=== PATIENT | male | born 1945 | race Caucasian/White ===

== ENCOUNTER 2018-10-20 15:16 | Inpatient (IN) | payer OTHER, MEDICARE ==
[2018-10-20] MEDS ORDERED: DEXAMETHASONE 10 MG/ML VIAL ONE (15:43)
[2018-10-20] MEDS ORDERED: LEVALBUTEROL 1.25 MG/3 ML NEB ONE (15:43)
[2018-10-20 16:25] LABS: Blood Gas Oxyhemoglobin 87.1 % (94-97); Blood O2 Saturation 87.7 % (92-98.5)
[2018-10-20 16:34] LABS: Urine Blood 1+ (NEG); Urine Glucose NEGATIVE (NEG); Urine Protein 2+ (NEG); Urine Specific Gravity 1.015 (1.005-1.030); Urine pH 8.5 (5.0-7.0)
--- NOTE | 2018-10-20 17:25 | RAD REPORT ---
EXAM DESCRIPTION: RAD - Chest Single View - 10/20/2018 5:02 pm CLINICAL HISTORY: COPD, shortness of breath COMPARISON: September 2015 TECHNIQUE: AP portable chest image was obtained 1636 hours . FINDINGS: Lung gonzalez are severely fibrotic. Diaphragm is flattened. Focally more prominent opacific ation is present in the right infrahilar region. Trachea is midline. Heart and vasculature are normal . No pneumothorax. Costophrenic angle blunting present. No acute bony abnormality seen. No acute aort ic findings suspected. IMPRESSION: Severe COPD changes are present. Lung markings are substantially more pronounced. This could be progressive fibrosis, superimposed inf iltrates/edema or a combination. Focally more prominent parenchymal density right infrahilar region. This could be small mass or focal pneumonia.
[2018-10-20 19:03] LABS: Absolute Lymphocytes (CBC) 4.1 K/uL (0.7-4.9); Absolute Monocytes 0.8 K/uL (0.1-1.3); Absolute Neutrophil 20.2 K/uL (1.8-8.0); Basophils % 0.1 % (0-1.3); Hematocrit 38.3 % (39.6-49.0); Lymphocytes % 16.4 % (15.3-44.8); MCH 31.4 pg (27.0-35.0); MPV 8.5 fL (7.6-11.3); Monocytes % 3.2 % (3.3-12.3); RBC Red Blood Cell Count 4.21 M/uL (4.33-5.43)
[2018-10-20 19:04] LABS: Protime INR 1.43
[2018-10-20] MEDS ORDERED: GABAPENTIN 300 MG CAP ONE (19:12)
[2018-10-20] MEDS ORDERED: HYDROCODONE/APAP 5/325 MG TAB ONE (19:12)
[2018-10-20 19:26] LABS: ALT/SGPT 62 U/L (12-78); AST/SGOT 67 U/L (15-37); Albumin 2.2 g/dL (3.4-5.0); Alkaline Phosphatase 166 U/L (45-117); BUN Blood Urea Nitrogen 33 mg/dL (7-18); Bicarbonate 32 mmol/L (21-32); Bilirubin Direct 0.3 mg/dL (0-0.2); Bilirubin Total 0.7 mg/dL (0.2-1.0); Glucose Level 122 mg/dL (74-106); Magnesium 2.2 mg/dL (1.8-2.4); NT PRO-BNP 959 pg/mL (<125); Potassium 3.8 mmol/L (3.5-5.1); Protein, Total 7.1 g/dL (6.4-8.2); Sodium Level 132 mmol/L (136-145); Troponin (Emerg Dept Use Only) < 0.02 ng/mL (0.0-0.045)
--- NOTE | 2018-10-20 19:39 | ER ---
Nurse's Notes [facility] Name: Jason Anand Sr Age: 72 yrs Sex: Male : 1945 Arrival Date: 10/20/2018 Time: 15:20 Bed 14 Private MD: Diagnosis: Chronic obstructive pulmonary disease with (acute) exacerbation;Pneumonia, unspecified organism Presentation: 10/20 15:30 Presenting complaint: EMS states: He was 54% on room air, gave and A\T\A treatment and it jl7 increased to 94%. Pt refuses IV at this time. Transition of care: patient was not received from another setting of care. Onset of symptoms was October 20, 2018. Risk Assessment: Do you want to hurt yourself or someone else? Patient reports no desire to harm self or others. Initial Sepsis Screen: Does the patient meet any 2 criteria? No. Patient's initial sepsis screen is negative. Does the patient have a suspected source of infection? No. Patient's initial sepsis screen is negative. Care prior to arrival: Medication(s) given: Albuterol Neb x 2, Atrovent Neb x 1. 15:30 Method Of Arrival: EMS: [facility] jl7 15:30 Acuity: CARLOS 3 jl7 Triage Assessment: 15:47 General: Appears uncomfortable, ill, cachectic, Behavior is cooperative. Pain: Denies jl7 pain. Neuro: Level of Consciousness is awake, alert, obeys commands. Cardiovascular: Heart tones present. Respiratory: Reports shortness of breath at rest Airway is patent Respiratory effort is even, labored, Respiratory pattern is symmetrical, tachypnea Breath sounds are diminished bilaterally. Onset: The symptoms/episode began/occurred this morning, the patient has moderate shortness of breath. Derm: Skin is dry, Skin is pale, Skin temperature is warm. Historical: - Allergies: 15:33 PENICILLINS; jl7 - PMHx: 15:33 COPD; jl7 - Immunization history:: Adult Immunizations unknown. - Ebola Screening: : No symptoms or risks identified at this time. - Social history:: Smoking status: Patient uses tobacco products, less than 1/2 PPD. Screenin:30 Abuse screen: Denies threats or abuse. Denies injuries from another. Nutritional jl7 screening: No deficits noted. Tuberculosis screening: No symptoms or risk factors identified. 19:15 Fall Risk Ambulatory Aid- Crutches/Cane/Walker (15 pts). Gait- Weak (10 pts.). Mental cc3 Status- Oriented to own ability (0 pts). Assessment: 15:30 General: Pt and family refuse IV, x-ray, any shots. Only agree to PO meds at this time, jl7 provider notified. 15:30 Cardiovascular: Rhythm is irregular. jl7 16:00 Reassessment:. Respiratory: Airway is patent Respiratory effort is labored, with jl7 retractions, Respiratory pattern is symmetrical, tachypnea ERP notified of decline in respiratory status, ERP at bedside. 18:53 Reassessment: catechist reports the initial blood specimen was not received and they jl7 located it on second floor. Specimen redrawn and sent to lab, assistant laboratory director confirmed receiving the specimen at this time. 19:15 Reassessment: Patient appears in no apparent distress at this time. Patient and/or cc3 family updated on plan of care and expected duration. Pain level reassessed. Patient is alert, oriented x 3, equal unlabored respirations, skin warm/dry/pink. Received this male patient from morning shift JEREMY Anaya as a case of shortness of breath. With IV cannula gauge 22 at the right forearm saline locked. 20:15 Reassessment: Patient appears in no apparent distress at this time. Patient and/or cc3 family updated on plan of care and expected duration. Pain level reassessed. Patient is alert, oriented x 3, equal unlabored respirations, skin warm/dry/pink. 21:01 Reassessment: Patient appears in no apparent distress at this time. Patient and/or cc3 family updated on plan of care and expected duration. Pain level reassessed. Patient is alert, oriented x 3, equal unlabored respirations, skin warm/dry/pink. Dr. Ceballos at bedside assessing the patient, awaiting admission orders. 22:20 Reassessment: Patient appears in no apparent distress at this time. Patient and/or cc3 family updated on plan of care and expected duration. Pain level reassessed. Patient is alert, oriented x 3, equal unlabored respirations, skin warm/dry/pink. Room available in 423, called for report but was told that the nurse who will receive will just call me back. 22:30 Reassessment: Patient appears in no apparent distress at this time. Report handed over cc3 to JEREMY Blount for continuity of care. 23:00 Reassessment: Patient appears in no apparent distress at this time. Patient and/or cc3 family updated on plan of care and expected duration. Pain level reassessed. Patient is alert, oriented x 3, equal unlabored respirations, skin warm/dry/pink. Patient left ER for admission vitally stable by stretcher on oxygen therapy escorted by accounting technician David and the patient's daughter. Vital Signs: 15:33 BP 138 / 69; Pulse 107; Resp 22 S; Temp 98.9(O); Pulse Ox 88% on R/A; Pain 0/10; jl7 16:00 BP 140 / 100; Pulse 135; Resp 32 S; Pulse Ox 83% on 2 lpm NC; jl7 16:30 BP 146 / 80; Pulse 91; Resp 16 S; Pulse Ox 96% on 2 lpm NC; jl7 17:00 BP 129 / 84; Pulse 96; Resp 16 S; Pulse Ox 98% on 2 lpm NC; jl7 18:00 BP 112 / 63; Pulse 91; Resp 16 S; Pulse Ox 100% on 2 lpm NC; jl7 18:54 BP 117 / 74; Pulse 94; Resp 16 S; Pulse Ox 100% on 2 lpm NC; jl7 19:30 BP 118 / 71; Pulse 91; Resp 20 S; Temp 97.9(O); Pulse Ox 100% on 2 lpm NC; cc3 20:18 BP 121 / 63; Pulse 85; Resp 20 S; Pulse Ox 99% on 1 lpm NC; cc3 21:30 BP 112 / 67; Pulse 84; Resp 19 S; Pulse Ox 100% on 1 lpm NC; cc3 22:36 BP 124 / 71; Pulse 81; Resp 19 S; Pulse Ox 100% on 1 lpm NC; cc3 ED Course: 15:20 Patient arrived in ED. jl7 15:27 Delta Cabrera NP is PHCP. pm1 15:[address] MD is Attending Physician. pm1 15:28 EKG done, by manufacturing tech. reviewed by Delta Cabrera NP. at1 15:30 Jaclyn Tafoya RN is Primary Nurse. jl7 15:30 Patient has correct armband on for positive identification. Placed in gown. Bed in low jl7 position. Call light in reach. Side rails up X2. gum sprayer on. Pulse ox on. NIBP on. 15:32 Triage completed. jl7 15:33 Arm band placed on right wrist. jl7 16:15 Initial lab(s) drawn, by me, sent to lab. Inserted saline lock: 22 gauge in right jl7 forearm, using aseptic technique. Blood collected. 16:20 First set of blood cultures drawn via 22-gauge IV in Right wrist. jp3 16:40 Second set of blood cultures drawn via 21-gauge butterfly needle in Left Forearm. jp3 17:03 XRAY Chest (1 view) In Process Unspecified. EDMS 17:30 Urine collected: clean catch specimen, clear, dora colored. jp3 18:11 Awaiting lab results. jl7 19:38 Kacy Loaiza MD is Hospitalizing Provider. pm1 22:30 No provider procedures requiring assistance completed. Patient admitted, IV remains in cc3 place. 23:00 Blood Culture Adult (2) Sent. jp3 Administered Medications: 15:45 Drug: Xopenex (3) 1.25 mg Route: Inhalation; jl7 16:37 Follow up: Response: No adverse reaction jl7 15:45 Drug: Decadron - Dexamethasone 10 mg Route: IVP; Site: Other; jl7 16:38 Follow up: Response: No adverse reaction jl7 18:08 CANCELLED (Duplicate Order): LevaQUIN 750 mg PO once pm1 19:13 Drug: [place] 5 mg-325 mg 1 tabs Route: PO; jl7 20:00 Follow up: Response: No adverse reaction; Pain is decreased cc3 19:13 Drug: Gabapentin 300 mg Route: PO; jl7 19:30 Follow up: Response: No adverse reaction cc3 19:40 Drug: LevaQUIN 750 mg Volume: 150 ml; Route: IVPB; Infused Over: 90 mins; Site: right cc3 forearm; 21:30 Follow up: Response: No adverse reaction; IV Status: Completed infusion; IV Intake: cc3 150ml 19:46 Drug: NS 0.9% 500 ml Volume: 500 ml; Route: IV; Rate: 1 bolus; Site: right forearm; cc3 20:30 Follow up: Response: No adverse reaction; IV Status: Completed infusion; IV Intake: cc3 500ml Intake: 20:30 IV: 500ml; Total: 500ml. cc3 21:30 IV: 150ml; Total: 650ml. cc3 Outcome: 19:38 Decision to Hospitalize by Provider. pm1 22:30 Admitted to Tele accompanied by tech, family with patient, via stretcher, room 423, cc3 with oxygen, with chart, Report called to JEREMY Blount 22:30 Condition: stable 22:30 Instructed on the need for admit, Demonstrated understanding of instructions. 23:12 Patient left the ED. cc3 Signatures: Dispatcher [employer] EDMS Marii Harry, senior design engineering specialist EKG Tat1 Delta Cabrera, DEBI DIRECTOR E LEARNING pm1 Jaclyn Tafoya RN RN jl7 Bora Glover jp3 Jessica Cruz cc3
--- NOTE | 2018-10-20 19:40 | EDPHYS ---
Physician Documentation [facility] Name: Jason Anand Sr Age: 72 yrs Sex: Male : 1945 Arrival Date: 10/20/2018 Time: 15:20 Bed 14 Private MD: ED Physician Lee Lane HPI: 10/20 16:30 This 72 yrs old Male presents to ER via EMS with complaints of Shortness Of pm1 Breath. 16:30 The patient has shortness of breath at rest. Onset: The symptoms/episode began/occurred pm1 today. Duration: The symptoms are chronic. The patient's shortness of breath has no apparent modifying factors. Associated signs and symptoms: Pertinent positives: non-productive cough, Pertinent negatives: chest pain, fever, nausea, vomiting. Severity of symptoms: in the emergency department the symptoms are worse Pain is currently a 0 / 10. The patient has experienced similar episodes in the past, chronically. The patient has not recently seen a physician, the patient's primary care provider is Dr. Franklin, a fuse cutter. 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 Patient reports shortness of breath since the beginning of the year but worse today. On EMS arrival had they report O2 saturation level in th 50s, gave patient breathing treatment and his saturations increased to low 90s. Patient reports improvement but still feels short of breath. Historical: - Allergies: 15:33 PENICILLINS; jl7 - PMHx: 15:33 COPD; jl7 - Immunization history:: Adult Immunizations unknown. - Ebola Screening: : No symptoms or risks identified at this time. - Social history:: Smoking status: Patient uses tobacco products, less than 1/2 PPD. ROS: 16:30 Constitutional: Negative for fever, chills, and weight loss, Eyes: Negative for injury, pm1 pain, redness, and discharge, ENT: Negative for injury, pain, and discharge, Neck: Negative for injury, pain, and swelling, Cardiovascular: Negative for chest pain, palpitations, and edema. 16:30 Abdomen/GI: Negative for abdominal pain, nausea, vomiting, diarrhea, and constipation, Back: Negative for injury and pain, : Negative for injury, bleeding, discharge, and swelling, MS/Extremity: Negative for injury and deformity, Skin: Negative for injury, rash, and discoloration, Neuro: Negative for headache, weakness, numbness, tingling, and seizure. 16:30 Respiratory: Positive for shortness of breath, Negative for sputum production, wheezing. Exam: 16:30 Head/Face: Normocephalic, atraumatic. Eyes: Pupils equal round and reactive to light, pm1 extra-ocular motions intact. Lids and lashes normal. Conjunctiva and sclera are non-icteric and not injected. Cornea within normal limits. Periorbital areas with no swelling, redness, or edema. ENT: Nares patent. No nasal discharge, no septal abnormalities noted. Tympanic membranes are normal and external auditory canals are clear. Oropharynx with no redness, swelling, or masses, exudates, or evidence of obstruction, uvula midline. Mucous membranes moist. Neck: Trachea midline, no thyromegaly or masses palpated, and no cervical lymphadenopathy. Supple, full range of motion without nuchal rigidity, or vertebral point tenderness. No Meningismus. Chest/axilla: Normal chest wall appearance and motion. Nontender with no deformity. No lesions are appreciated. Cardiovascular: Regular rate and rhythm with a normal S1 and S2. No gallops, murmurs, or rubs. Normal PMI, no JVD. No pulse deficits. 16:30 Abdomen/GI: Soft, non-tender, with normal bowel sounds. No distension or tympany. No guarding or rebound. No evidence of tenderness throughout. Back: No spinal tenderness. No costovertebral tenderness. Full range of motion. Skin: Warm, dry with normal turgor. Normal color with no rashes, no lesions, and no evidence of cellulitis. MS/ Extremity: Pulses equal, no cyanosis. Neurovascular intact. Full, normal range of motion. 16:30 Constitutional: The patient appears alert, awake, non-toxic, well groomed, emaciated, in obvious distress, mildly distressed. 16:30 Constitutional: The patient appears in obvious distress, moderately distressed. 16:30 Respiratory: moderate respiratory distress is noted, Respirations: labored breathing, that is moderate, Breath sounds: decreased breath sounds, are scattered. 16:30 Neuro: Orientation: is normal, Motor: is normal, moves all fours. Vital Signs: 15:33 BP 138 / 69; Pulse 107; Resp 22 S; Temp 98.9(O); Pulse Ox 88% on R/A; Pain 0/10; jl7 16:00 BP 140 / 100; Pulse 135; Resp 32 S; Pulse Ox 83% on 2 lpm NC; jl7 16:30 BP 146 / 80; Pulse 91; Resp 16 S; Pulse Ox 96% on 2 lpm NC; jl7 17:00 BP 129 / 84; Pulse 96; Resp 16 S; Pulse Ox 98% on 2 lpm NC; jl7 18:00 BP 112 / 63; Pulse 91; Resp 16 S; Pulse Ox 100% on 2 lpm NC; jl7 18:54 BP 117 / 74; Pulse 94; Resp 16 S; Pulse Ox 100% on 2 lpm NC; jl7 19:30 BP 118 / 71; Pulse 91; Resp 20 S; Temp 97.9(O); Pulse Ox 100% on 2 lpm NC; cc3 20:18 BP 121 / 63; Pulse 85; Resp 20 S; Pulse Ox 99% on 1 lpm NC; cc3 21:30 BP 112 / 67; Pulse 84; Resp 19 S; Pulse Ox 100% on 1 lpm NC; cc3 22:36 BP 124 / 71; Pulse 81; Resp 19 S; Pulse Ox 100% on 1 lpm NC; cc3 MDM: 15:27 Patient medically screened. pm1 15:34 Refusal of service: The patient/guardian displays adequate decision making capability pm1 and despite a detailed discussion of alternatives, benefits, risks, and consequences refuses: all lab tests, all X-rays, He just wants a breathing treatment and to go home. His niece is at the bedside and she is his patient care coordinator and she is in agreement with his decisions. Therefore I will give him Xopenex, he received Albuterol and Atrovent in route by EMS, and steroid PO. 18:45 ED course: Lab redraw required by laboratory. pm1 19:35 Data reviewed: vital signs. pm1 19:37 Counseling: I had a detailed discussion with the patient and/or guardian regarding: the pm1 historical points, exam findings, and any diagnostic results supporting the discharge/admit diagnosis, lab results, radiology results, the need for further work-up and treatment in the hospital. 20:10 Physician consultation: Kacy Loaiza MD was contacted at 20:10, regarding admission, pm1 patient's condition, in the emergency department to see patient at 20:11. 10/20 16:06 Order name: Basic Metabolic Panel; Complete Time: 19:36 pm1 10/20 16:06 Order name: CBC with Diff; Complete Time: 19:59 pm1 10/20 16:06 Order name: LFT's; Complete Time: 19:36 pm1 10/20 16:06 Order name: Magnesium; Complete Time: 19:36 pm1 10/20 16:06 Order name: NT PRO-BNP; Complete Time: 19:36 pm1 10/20 16:06 Order name: PT-INR; Complete Time: 19:26 pm1 10/20 16:06 Order name: Troponin (emerg Dept Use Only); Complete Time: 19:36 pm1 10/20 16:06 Order name: XRAY Chest (1 view); Complete Time: 18:00 pm1 10/20 16:06 Order name: ABG; Complete Time: 16:53 pm1 10/20 16:06 Order name: BIPAP pm1 10/20 16:25 Order name: Urine Dipstick--Ancillary (enter results); Complete Time: 16:53 gm 10/20 18:01 Order name: Blood Culture Adult (2) pm1 10/20 19:12 Order name: Manual Differential; Complete Time: 19:59 EDMS 10/20 19:16 Order name: Procalcitonin; Complete Time: 20:29 pm1 10/20 16:06 Order name: EKG; Complete Time: 16:08 pm1 10/20 16:06 Order name: Cardiac monitoring; Complete Time: 16:37 pm1 10/20 16:06 Order name: EKG - Nurse/Tech; Complete Time: 16:37 pm1 10/20 16:06 Order name: IV Saline Lock; Complete Time: 16:37 pm1 10/20 16:06 Order name: Labs collected and sent; Complete Time: 16:37 pm1 10/20 16:06 Order name: O2 Per Protocol; Complete Time: 16:37 pm1 10/20 16:06 Order name: O2 Sat Monitoring; Complete Time: 16:37 pm1 Administered Medications: 15:45 Drug: Xopenex (3) 1.25 mg Route: Inhalation; jl7 16:37 Follow up: Response: No adverse reaction jl7 15:45 Drug: Decadron - Dexamethasone 10 mg Route: IVP; Site: Other; jl7 16:38 Follow up: Response: No adverse reaction jl7 18:08 CANCELLED (Duplicate Order): LevaQUIN 750 mg PO once pm1 19:13 Drug: [place] 5 mg-325 mg 1 tabs Route: PO; jl7 20:00 Follow up: Response: No adverse reaction; Pain is decreased cc3 19:13 Drug: Gabapentin 300 mg Route: PO; jl7 19:30 Follow up: Response: No adverse reaction cc3 19:40 Drug: LevaQUIN 750 mg Volume: 150 ml; Route: IVPB; Infused Over: 90 mins; Site: right cc3 forearm; 21:30 Follow up: Response: No adverse reaction; IV Status: Completed infusion; IV Intake: cc3 150ml 19:46 Drug: NS 0.9% 500 ml Volume: 500 ml; Route: IV; Rate: 1 bolus; Site: right forearm; cc3 20:30 Follow up: Response: No adverse reaction; IV Status: Completed infusion; IV Intake: cc3 500ml Disposition: 10/21 07:08 Co-signature as Attending Physician, Lee Lane MD I agree with the assessment and roby plan of care. Disposition: 10/20/18 19:38 Hospitalization ordered by Kacy Loaiza for Inpatient Admission. Preliminary diagnosis are Chronic obstructive pulmonary disease with (acute) exacerbation, Pneumonia, unspecified organism. - Bed requested for Telemetry/MedSurg (Inpatient). - Status is Inpatient Admission. cc3 - Condition is Stable. - Problem is new. - Symptoms have improved. UTI on Admission? No Signatures: Dispatcher [employer] Lee Gilliam MD MD cha Marinas, Patrick, TROUBLE TRACER TROUBLE TRACER pm1 Jaclyn Tafoya RN RN jl7 Jessica Cruz cc3 Renetta Novoa ar5 Corrections: (The following items were deleted from the chart) 10/20 18:08 18:07 LevaQUIN 750 mg PO once ordered. pm1 pm1 21:07 19:38 Hospitalization Ordered by Kacy Loaiza MD for Observation. Preliminary pm1 diagnosis is Chronic obstructive pulmonary disease with (acute) exacerbation; Pneumonia, unspecified organism. Bed requested for Telemetry/MedSurg (observation). Status is Observation. Condition is Stable. Problem is new. Symptoms have improved. UTI on Admission? No. pm1 21:35 21:07 10/20/2018 19:38 Hospitalization Ordered by Kacy Loaiza MD for Inpatient ar5 Admission. Preliminary diagnosis is Chronic obstructive pulmonary disease with (acute) exacerbation; Pneumonia, unspecified organism. Bed requested for Telemetry/MedSurg (Inpatient). Status is Inpatient Admission. Condition is Stable. Problem is new. Symptoms have improved. UTI on Admission? No. pm1 23:12 21:35 10/20/2018 19:38 Hospitalization Ordered by Kacy Loaiza MD for Inpatient cc3 Admission. Preliminary diagnosis is Chronic obstructive pulmonary disease with (acute) exacerbation; Pneumonia, unspecified organism. Bed requested for Telemetry/MedSurg (Inpatient). Status is Inpatient Admission. Condition is Stable. Problem is new. Symptoms have improved. UTI on Admission? No. ar5
[2018-10-20] MEDS ORDERED: Levofloxacin 750mg IV 750 MG/150 ML BAG IV ONE (19:44)
[2018-10-20] MEDS ORDERED: NA CHLORIDE 0.9% 500 ML ONE (19:54)
[2018-10-20 19:57] LABS: Blood Morphology Comment NOT SEEN (NOT SEEN); Platelet Estimate ADEQ
[2018-10-20 19:58] LABS: Toxic Granulation 3+
--- NOTE | 2018-10-20 21:22 | P.HP ---
Certification for Inpatient Patient admitted to: Inpatient With expected LOS: >2 Midnights Practitioner: I am a practitioner with admitting privileges, knowledge of patient current condition, hospital course, and medical plan of care. Services: Services provided to patient in accordance with Admission requirements found in Title 42 Section 412.3 of the Code of Federal Regulations Patient History Date of Service: 10/20/18 Reason for admission: acute respiratory failure, sepsis History of Present Illness: Mr Anand is a 72 years old male with history of COPD, who start about 1 week ago with progressive SOB and productive cough. He changed the color of his sputum from clear to yellowish. He denied fever or chills. In the last couple of days, his symptoms got worse. Today EMS was called, they found the patient on respiratory distress, O2 Sat was 56% on RA. He received breathing treatments and was placed on O2 support. In ER he was afebrile, O2 sat 88% on RA, BP 138/ 69. Lab work remarkable for leukocytosis 25.1K. with 5% of bands, elevated procalcitonin, lactate is pending. CXR shows RLL patchy infiltrate consistent with pneumonia. The patient was initial reluctant to receive medical treatment and get admitted, however, finally he accept to be treated. Allergies Penicillins Allergy (Verified 10/20/18 21:00) Itching/Hives/Rash Home medications list reviewed: Yes - Past Medical/Surgical History -: COPD -: HTN -: tobacco abuse Past Surgical History: Reviewed- Non-Contributory - Family History Family History: Reviewed- Non-Contributory - Social History Smoking Status: Current every day smoker Counseled patient to stop smoking for: less than 10 minutes CD- Drugs: No Place of Residence: Home Review of Systems 10-point ROS is otherwise unremarkable Physical Examination - Physical Exam General: Alert, In no apparent distress HEENT: Atraumatic, PERRLA, Mucous membr. moist/pink, EOMI, Sclerae nonicteric Neck: Supple, 2+ carotid pulse no bruit, No LAD, Without JVD or thyroid abnormality Respiratory: Diminished, Crackles/rales (right base crackles) Cardiovascular: Regular rate/rhythm, Normal S1 S2 Gastrointestinal: Normal bowel sounds, No tenderness Musculoskeletal: No tenderness Integumentary: No rashes Neurological: Normal speech, Normal strength at 5/5 x4 extr, Normal tone, Normal affect Lymphatics: No axilla or inguinal lymphadenopathy - Studies Laboratory Data (last 24 hrs) 10/20/18 18:48: PT 16.9 H, INR 1.43 10/20/18 18:48: WBC 25.1 H*, Hgb 13.2 L, Hct 38.3 L, Plt Count 488 H 10/20/18 18:48: Sodium 132 L, Potassium 3.8, BUN 33 H, Creatinine 1.10, Glucose 122 H, Magnesium 2.2, Total Bilirubin 0.7, AST 67 H, ALT 62, Alkaline Phosphatase 166 H Assessment and Plan - Problems (Diagnosis) (1) Sepsis Current Visit: Yes Status: Acute Qualifiers: Sepsis type: sepsis due to unspecified organism Qualified Code(s): A41.9 - Sepsis, unspecified organism (2) Acute and chronic respiratory failure Current Visit: Yes Status: Acute Qualifiers: Respiratory failure complication: hypoxia Qualified Code(s): J96.21 - Acute and chronic respiratory failure with hypoxia (3) COPD exacerbation Current Visit: Yes Status: Acute (4) Pneumonia Current Visit: Yes Status: Acute Qualifiers: Pneumonia type: due to unspecified organism Laterality: right Lung location: lower lobe of lung Qualified Code(s): J18.1 - Lobar pneumonia, unspecified organism - Plan The patient will be admitted to the hospital due to acute on chronic respiratory failure secondary to COPD exacerbation due to RLL pneumonia. Will order empiric IV LEvaquin, IV steroids, IV fluids and breathing treatments. Consult Dr Franklin. - Advance Directives Does patient have a Living Will: No Does patient have a Durable POA for Healthcare: No - Code Status/Comfort Care Code Status Assessed: Yes Code Status: Full Code
[2018-10-21] MEDS ORDERED: ONDANSETRON 4 MG/2 ML VIAL IV PRN (00:10)
[2018-10-21] MEDS ORDERED: ACETAMINOPHEN 500 MG TAB PO PRN (00:10)
[2018-10-21] MEDS ORDERED: NA CHLORIDE 0.9% 1,000 ML ONE (01:00)
[2018-10-21] MEDS: METHYLPREDNISOLONE 40 MG INJ IV SCH ×4 (01:03→17:00)
[2018-10-21] MEDS: NA CHLORIDE 0.9% 1,000 ML IV SCH ×2 (01:03→13:31)
[2018-10-21 01:15] VITALS: BMI 15.6
[2018-10-21 03:09] LABS: Absolute Lymphocytes (CBC) 4.2 K/uL (0.7-4.9); Absolute Monocytes 0.9 K/uL (0.1-1.3); Absolute Neutrophil 21.2 K/uL (1.8-8.0); Basophils % 0.1 % (0-1.3); Hematocrit 35.6 % (39.6-49.0); MCH 30.9 pg (27.0-35.0); MCV 91.4 fL (80-100); MPV 8.5 fL (7.6-11.3); Monocytes % 3.5 % (3.3-12.3)
[2018-10-21] MEDS: IPRATROPIUM BROM 0.5MG/2.5ML NEB PRN ×2 (03:20→11:00)
[2018-10-21] MEDS: ALBUTEROL 2.5 MG/3 ML NEB SOL NEB PRN ×2 (03:20→11:00)
--- NOTE | 2018-10-21 07:19 | EKG ---
Test Date: 2018-10-20 Test Time: 15:22:17 Bi Tri Operator: BECKY MEASUREMENT RESULTS: Intervals: Rate: 108 AR: 122 QRSD: 86 QT: 342 QTc: 458 Michie: P: 85 AR: 122 QRS: 87 T: 69 INTERPRETIVE STATEMENTS: Sinus tachycardia with premature supraventricular complexes Otherwise normal ECG Compared to ECG 07/10/2007 12:01:09 Atrial premature complex(es) now present Sinus bradycardia no longer present Right-axis deviation no longer present Electronically Signed On 10-21-18 07:18:16 ORDER ADMINISTRATOR by Ean Mohan
[2018-10-21] MEDS ORDERED: INFLUENZA VACCINE (for 3y+) 0.5 ML DOSE IMVAC ONE (08:00)
[2018-10-21] MEDS ORDERED: PNEUMOCOCCAL VACCINE 0.5 ML IMVAC ONE (08:00)
[2018-10-21] MEDS ORDERED: ENOXAPARIN 40 MG/0.4 ML SQ SCH (09:00)
--- NOTE | 2018-10-21 11:12 | P.PN ---
Subjective Date of Service: 10/21/18 Primary Care Provider: Dr. Alfredo; Pulmonary-Dr. Franklin Chief Complaint: acute respiratory failure, sepsis Subjective: Other (Less short of breath noted today. Daughter at bedside.) Physical Examination - Vital Signs Temperature: 97 F Blood Pressure: 117/70 Pulse: 77 Respirations: 20 Pulse Ox (%): 99 - Physical Exam General: Alert, In no apparent distress, Oriented x3, Cooperative HEENT: Atraumatic Neck: Supple Respiratory: Crackles/rales (To the right base), Expiratory wheezes (Bilateral) Cardiovascular: Normal pulses, Regular rate/rhythm Gastrointestinal: Normal bowel sounds, Soft and benign, Non-distended, No tenderness, No masses, No rebound, No guarding Musculoskeletal: No erythema, No tenderness, No warmth Integumentary: No tenderness/swelling, No erythema, No warmth, No cyanosis Neurological: Normal speech, Normal strength at 5/5 x4 extr, Normal tone, Normal affect - Studies Laboratory Data (last 24 hrs) 10/21/18 02:30: Sodium 134 L, Potassium 4.0, BUN 28 H, Creatinine 1.00, Glucose 128 H 10/21/18 02:30: WBC 26.3 H*, Hgb 12.1 L, Hct 35.6 L, Plt Count 424 H 10/20/18 18:48: PT 16.9 H, INR 1.43 10/20/18 18:48: WBC 25.1 H*, Hgb 13.2 L, Hct 38.3 L, Plt Count 488 H 10/20/18 18:48: Sodium 132 L, Potassium 3.8, BUN 33 H, Creatinine 1.10, Glucose 122 H, Magnesium 2.2, Total Bilirubin 0.7, AST 67 H, ALT 62, Alkaline Phosphatase 166 H Microbiology Data (last 24 hrs): 10/21/18 06:30 Sputum Gram Stain - Final 10/21/18 01:10 Nasopharnyx Influenza Type A Antigen Screen - Final 10/21/18 01:10 Nasopharnyx Influenza Type B Antigen Screen - Final Medications List Reviewed: Yes Assessment & Plan Discharge Plan: Home Plan to discharge in: 72 Hours Physician Review Additional Text: Impression: Sepsis with acute on chronic respiratory failure secondary to COPD exacerbation with underlying severe COPD and right infrahilar pneumonia Chronic pain Hypertension Moderate malnutrition Plan: Sepsis with acute on chronic respiratory failure secondary to COPD exacerbation with underlying severe COPD and right infrahilar pneumonia: Patient slightly improved with treatment. Will continue with COPD medication. Will continue with IV Solu-Medrol. Will maintain sats above 90%. Patient will likely require oxygen at discharge. Will set up home health and physical therapy at discharge is well. Continue IV Levaquin for pneumonia. Will recheck chest x- ray in the morning. Will continue monitor lab. Will consult pulmonology who sees the patient as an outpatient for further recommendation. Likely discharge in the next 24-72 hr. Chronic pain: Will continue with his home medication. Patient seen by pain management as an outpatient. Hypertension: Will hold his blood pressure medication at this time. Will monitor this closely. Moderate malnutrition: BMI 15. Will have nutrition evaluate and make recommendations to his diet. Time Spent Managing Pts Care (In Minutes): 55
[2018-10-21] MEDS ORDERED: HYDRALAZINE HCL 20 MG/ML VIAL IV PRN (11:14)
--- NOTE | 2018-10-21 12:03 | RAD REPORT ---
EXAM DESCRIPTION: RAD - Chest Pa And Lat (2 Views) - 10/21/2018 11:47 am CLINICAL HISTORY: COPD, pneumonia COMPARISON: October 20, September 26 TECHNIQUE: PA and lateral views of the chest were obtained. FINDINGS: The lungs are extensively fibrotic with flattened diaphragm. The prominent interstitial pa ttern in the lower lung gonzalez not substantially different from the prior day study. Heart size is normal and central vasculature is within normal limits. No pleural effusion or pneumothorax seen. N o acute bony finding noted. No aortic abnormality. IMPRESSION: Extensive COPD with suspected bilateral lung base pneumonia. Findings are similar to Nov ember 28.
[2018-10-21] MEDS: HYDROCODONE/APAP 7.5/325 MG TAB PO PRN (13:26)
[2018-10-21] MEDS: GABAPENTIN 300 MG CAP PO SCH ×2 (13:34→20:19)
[2018-10-21] MEDS ORDERED: Pharmacy Consult 1 EA XX PRN (13:46)
--- NOTE | 2018-10-21 13:53 | P.CNS ---
Date of Consult: 10/21/18 Reason for Consult: Pneumonia Primary Care Provider: Dr. Alfredo; Pulmonary-Dr. Franklin Chief Complaint: acute respiratory failure, sepsis History of Present Illness: Patient is 72 years of age well known to me with a history of terminal COPD admitted with worsening shortness of breath cough congestion he became sick after his mother he is currently in significant distress precipitated by his coughing spells patient has become progressively worse over time x-ray showed bilateral pneumonia Allergies Penicillins Allergy (Verified 10/20/18 21:00) Itching/Hives/Rash Home Medications: Albuterol Sulfate [Proair Hfa] 2 puff IH Q4H PRN 10/21/18 Benazepril/Hydrochlorothiazide [Benazepril-Hctz 20-12.5 mg Tab] 1 tab PO DAILY 10/21/18 Budesonide/Formoterol Fumarate [Symbicort 160-4.5 Mcg Inhaler] 2 puff IH BID Gabapentin [Neurontin*] 300 mg PO TID 10/21/18 Hydrocodone Bit/Acetaminophen [Hydrocodon-Acetaminoph 7.5-325] 1 tab PO TID - Past Medical/Surgical History Diabetic: No -: COPD -: HTN -: tobacco abuse -: fibromyalgia -: emphysema -: knee sx - Family History Father Medical History: Cancer Mother Notes: pneumonia - Social History Alcohol use: No CD- Drugs: No Caffeine use: Yes Place of Residence: Home Review of Systems is unable to be obtained Physical Examination Temp Pulse Resp BP Pulse Ox 97 F 77 20 117/70 99 10/21/18 11:12 10/21/18 11:12 10/21/18 11:12 10/21/18 11:12 10/21/18 11:12 General: Moderate distress Neck: Supple Respiratory: Crackles/rales (Bilateral crackles), Expiratory wheezes Cardiovascular: No edema, Regular rate/rhythm, Normal S1 S2 Gastrointestinal: Soft and benign Musculoskeletal: No clubbing, No swelling Integumentary: No rashes, No breakdown Laboratory Data (last 24 hrs) 10/21/18 02:30: Sodium 134 L, Potassium 4.0, BUN 28 H, Creatinine 1.00, Glucose 128 H 10/21/18 02:30: WBC 26.3 H*, Hgb 12.1 L, Hct 35.6 L, Plt Count 424 H 10/20/18 18:48: PT 16.9 H, INR 1.43 10/20/18 18:48: WBC 25.1 H*, Hgb 13.2 L, Hct 38.3 L, Plt Count 488 H 10/20/18 18:48: Sodium 132 L, Potassium 3.8, BUN 33 H, Creatinine 1.10, Glucose 122 H, Magnesium 2.2, Total Bilirubin 0.7, AST 67 H, ALT 62, Alkaline Phosphatase 166 H - Problems (1) Pneumonia Onset Date: 10/21/18 Current Visit: Yes Status: Acute Plan: Patient is 72 years of age admitted with respiratory distress he has bilateral pneumonia oil changer to IV cefepime add vancomycin cultures are pending I have added ipratropium scheduled continue with albuterol reduce the dose of scheduled Solu-Medrol labs reviewed continuous pulse ox BiPAP I suspect he has underlying significant depression patient is terrified of needles in fact he does anyone like having blood draws is an outpatient change urine over to Eliquis 2.5 twice a day Qualifiers: Pneumonia type: due to unspecified organism Laterality: right Lung location: lower lobe of lung Qualified Code(s): J18.1 - Lobar pneumonia, unspecified organism
[2018-10-21] MEDS ORDERED: NA CHLORIDE 0.9% 1,000 ML IV SCH (14:00)
[2018-10-21] MEDS: VANCOMYCIN/NS 1 gm 1 GM/250 ML BAG IV SCH (15:00)
[2018-10-21] MEDS ORDERED: IPRATROPIUM BROM 0.5MG/2.5ML NEB PRN (15:00)
[2018-10-21] MEDS: IPRATROPIUM BROM 0.5MG/2.5ML NEB SCH ×2 (16:17→21:12)
[2018-10-21] MEDS ORDERED: MORPHINE 2 MG/ML SYR IV PRN (19:42)
[2018-10-21] MEDS: ONDANSETRON 4 MG/2 ML VIAL IV PRN (20:19)
[2018-10-21] MEDS: CEFEPIME/SWI 1gm 1 GM/10 ML SYR IV SCH (20:20)
[2018-10-21] MEDS: ENSURE ENLIVE 237 ML CAN PO SCH (20:20)
[2018-10-21] MEDS ORDERED: CEFEPIME 1 GM/VIAL IV SCH (21:00)
[2018-10-21] MEDS: ARFORMOTEROL TARTRATE 15 MCG/2 ML VIAL.NEB NEB SCH (21:12)
[2018-10-22] MEDS: METHYLPREDNISOLONE 40 MG INJ IV SCH ×2 (00:32→08:58)
[2018-10-22] MEDS: IPRATROPIUM BROM 0.5MG/2.5ML NEB SCH ×4 (02:13→20:17)
[2018-10-22] MEDS: ALBUTEROL 2.5 MG/3 ML NEB SOL NEB PRN (04:05)
[2018-10-22] MEDS: HYDROCODONE/APAP 7.5/325 MG TAB PO PRN ×3 (04:24→20:14)
[2018-10-22] MEDS ORDERED: MAGNESIUM HYDROXIDE 8% 30 ML PO ONE (05:03)
[2018-10-22] MEDS: APIXABAN 2.5 MG TABLET PO SCH ×2 (05:40→17:48)
[2018-10-22] MEDS: ARFORMOTEROL TARTRATE 15 MCG/2 ML VIAL.NEB NEB SCH ×2 (08:53→20:17)
[2018-10-22] MEDS: CEFEPIME/SWI 1gm 1 GM/10 ML SYR IV SCH ×2 (08:57→20:13)
[2018-10-22] MEDS: GABAPENTIN 300 MG CAP PO SCH ×3 (08:58→20:14)
[2018-10-22] MEDS: ENSURE ENLIVE 237 ML CAN PO SCH ×2 (08:59→20:14)
[2018-10-22] MEDS ORDERED: HYDROCHLOROTHIAZIDE PO SCH ×2 (09:00)
[2018-10-22] MEDS ORDERED: BENAZEPRIL PO SCH ×2 (09:00)
[2018-10-22] MEDS ORDERED: [UNRECOGNIZED DRUG - OTHER] PO SCH ×2 (09:00)
--- NOTE | 2018-10-22 09:36 | RAD REPORT ---
EXAM DESCRIPTION: Edent Pa And Lat (2 Views)10/22/2018 7:07 am CLINICAL HISTORY: Cough COMPARISON: October 21 FINDINGS: Lungs are markedly hyperaerated. Diffuse bilateral pulmonary opacities are unchanged. The heart is normal size IMPRESSION: Marked COPD Diffuse bilateral pulmonary opacities probably representing pneumonia. Pulmonary edema is another con sideration
--- NOTE | 2018-10-22 09:54 | P.PN ---
Subjective Date of Service: 10/22/18 Primary Care Provider: Dr. Alfrdeo; Pulmonary-Dr. Franklin Chief Complaint: COPD exacerbation pneumonia Subjective: Improving (Patient is improving he is looking a lot better today in not wheezing or short of breath wants to go home) Review of Systems General: Weakness Respiratory: Shortness of Breath Physical Examination - Vital Signs Temperature: 97.7 F Blood Pressure: 140/66 Pulse: 84 Respirations: 20 Pulse Ox (%): 94 - Physical Exam General: Alert, Oriented x3 Respiratory: Clear to auscultation bilaterally, Diminished, Crackles/rales Cardiovascular: No edema, Regular rate/rhythm - Studies Microbiology Data (last 24 hrs): 10/21/18 06:30 Sputum Gram Stain - Final Medications List Reviewed: Yes Assessment & Plan - Problems (Diagnosis) (1) Pneumonia Onset Date: 10/21/18 Current Visit: Yes Status: Acute Plan: Patient is 72 years of age admitted with bilateral pneumonia all cultures are negative so far patient I think he has underlying significant depression I have added mirtazapine 7.5 mg to be taken at night patient can be discharged home on prednisone 10 mg twice a day for 10 days in addition to levofloxacin follow with me in 1-2 weeks continue with Symbicort will plan to change him to another inhaler without steroids at followup CBC ordered room-air pulse ox I do not think it will qualify for home O2 Qualifiers: Pneumonia type: due to unspecified organism Laterality: right Lung location: lower lobe of lung Qualified Code(s): J18.1 - Lobar pneumonia, unspecified organism Physician Review Additional Text: Impression: Sepsis with acute on chronic respiratory failure secondary to COPD exacerbation with underlying severe COPD and right infrahilar pneumonia Chronic pain Hypertension Moderate malnutrition Plan: Sepsis with acute on chronic respiratory failure secondary to COPD exacerbation with underlying severe COPD and right infrahilar pneumonia: Patient slightly improved with treatment. Will continue with COPD medication. Will continue with IV Solu-Medrol. Will maintain sats above 90%. Patient will likely require oxygen at discharge. Will set up home health and physical therapy at discharge is well. Continue IV Levaquin for pneumonia. Will recheck chest x- ray in the morning. Will continue monitor lab. Will consult pulmonology who sees the patient as an outpatient for further recommendation. Likely discharge in the next 24-72 hr. Chronic pain: Will continue with his home medication. Patient seen by pain management as an outpatient. Hypertension: Will hold his blood pressure medication at this time. Will monitor this closely. Moderate malnutrition: BMI 15. Will have nutrition evaluate and make recommendations to his diet.
[2018-10-22 10:08] LABS: Hematocrit 36.3 % (39.6-49.0); MCH 31.4 pg (27.0-35.0); MCV 91.5 fL (80-100); MPV 7.9 fL (7.6-11.3); RBC Red Blood Cell Count 3.97 M/uL (4.33-5.43)
[2018-10-22] MEDS: ONDANSETRON 4 MG/2 ML VIAL IV PRN (13:00)
[2018-10-22] MEDS: PROMETHAZINE 25 MG/ML VIAL IV PRN ×3 (14:00→22:07)
[2018-10-22] MEDS: VANCOMYCIN/NS 1 gm 1 GM/250 ML BAG IV SCH (15:45)
[2018-10-22] MEDS ORDERED: MAGIC MOUTHWASH 180 ML BTL PO PRN (16:13)
--- NOTE | 2018-10-22 16:18 | P.PN ---
Subjective Date of Service: 10/22/18 Primary Care Provider: Dr. Alfredo; Pulmonary-Dr. Franklin Chief Complaint: COPD exacerbation pneumonia Subjective: Other (Shortness of breath improved. Some congestion reported. Throat pain noted.) Physical Examination - Vital Signs Temperature: 97.7 F Blood Pressure: 140/66 Pulse: 84 Respirations: 20 Pulse Ox (%): 94 - Physical Exam General: Alert, In no apparent distress, Oriented x3, Cooperative HEENT: Atraumatic Neck: Supple Respiratory: Expiratory wheezes (Bilateral improved aeration) Cardiovascular: Normal pulses, Regular rate/rhythm Gastrointestinal: Normal bowel sounds, Soft and benign, Non-distended, No tenderness, No masses, No rebound, No guarding Musculoskeletal: No erythema, No tenderness, No warmth Integumentary: No tenderness/swelling, No erythema, No warmth, No cyanosis Neurological: Normal speech, Normal strength at 5/5 x4 extr, Normal tone, Normal affect - Studies Microbiology Data (last 24 hrs): 10/21/18 06:30 Sputum Gram Stain - Final Medications List Reviewed: Yes Assessment & Plan Discharge Plan: Home Plan to discharge in: 24 Hours Physician Review Additional Text: Impression: Sepsis with acute on chronic respiratory failure secondary to COPD exacerbation with underlying severe COPD and right infrahilar pneumonia Chronic pain Hypertension Moderate malnutrition Depression Possible thrush Plan: Sepsis with acute on chronic respiratory failure secondary to COPD exacerbation with underlying severe COPD and bilateral pneumonia: Patient seems to have improved. Wean off oxygen. Pulmonology has transitioned IV Solu-Medrol to oral prednisone. Will continue with antibiotic therapy as per pulmonology. Patient may require home oxygen at discharge. Will talk to oncology social worker to arrange for home health and physical therapy as well. Will recheck chest x- ray. Will discuss with pulmonology about possible discharge in the next 24-48 hr. Chronic pain: Will continue with his home medication. Patient seen by pain management as an outpatient. Hypertension: Will review and restart home medication. Will monitor this closely. Moderate malnutrition: BMI 15. Will have nutrition evaluate and make recommendations to his diet. Depression: Pulmonology has added medication. Possible Thrush: Patient reports irritation to the mouth. Will start nystatin. Time Spent Managing Pts Care (In Minutes): 55
[2018-10-22] MEDS: NYSTATIN 500,000 UNIT/5 ML UDC PO SCH ×2 (17:48→20:13)
[2018-10-22] MEDS ORDERED: Levofloxacin 750mg IV 750 MG/150 ML BAG IV SCH (18:00)
[2018-10-22] MEDS: predniSONE 20 MG TAB PO SCH (20:14)
[2018-10-23] MEDS: IPRATROPIUM BROM 0.5MG/2.5ML NEB SCH ×3 (01:08→14:00)
[2018-10-23] MEDS: APIXABAN 2.5 MG TABLET PO SCH (05:55)
[2018-10-23] MEDS ORDERED: LACTULOSE 20 GM/30 ML UCUP PO PRN (08:06)
[2018-10-23 08:34] LABS: Absolute Lymphocytes (CBC) 5.8 K/uL (0.7-4.9); Absolute Neutrophil 16.1 K/uL (1.8-8.0); Basophils % 0.2 % (0-1.3); Hematocrit 37.6 % (39.6-49.0); Lymphocytes % 25.4 % (15.3-44.8); MCH 31.9 pg (27.0-35.0); MCV 90.7 fL (80-100); MPV 7.3 fL (7.6-11.3); Monocytes % 4.2 % (3.3-12.3); RBC Red Blood Cell Count 4.14 M/uL (4.33-5.43)
[2018-10-23 08:58] LABS: Magnesium 2.8 mg/dL (1.8-2.4); Potassium 4.5 mmol/L (3.5-5.1)
[2018-10-23] MEDS ORDERED: DOCUSATE NA 100 MG CAP PO SCH (09:00)
[2018-10-23] MEDS ORDERED: LISINOPRIL 10 MG TAB PO SCH (09:00)
[2018-10-23] MEDS: NYSTATIN 500,000 UNIT/5 ML UDC PO SCH ×3 (09:26→17:00)
[2018-10-23] MEDS: GABAPENTIN 300 MG CAP PO SCH ×2 (09:26→15:05)
[2018-10-23] MEDS: predniSONE 20 MG TAB PO SCH (09:27)
[2018-10-23] MEDS: PROMETHAZINE 25 MG/ML VIAL IV PRN (09:28)
[2018-10-23] MEDS: CEFEPIME/SWI 1gm 1 GM/10 ML SYR IV SCH (09:30)
[2018-10-23] MEDS: ARFORMOTEROL TARTRATE 15 MCG/2 ML VIAL.NEB NEB SCH (10:35)
[2018-10-23 10:42] VITALS: O2SAT 94
--- NOTE | 2018-10-23 10:53 | P.PN ---
Subjective Date of Service: 10/23/18 Primary Care Provider: Dr. Alfredo; Pulmonary-Dr. Franklin Chief Complaint: COPD exacerbation pneumonia Subjective: Improving (Patient is doing much better wants to go home white count elevated) Review of Systems General: Weakness Respiratory: Shortness of Breath Physical Examination - Vital Signs Temperature: 99.2 F Blood Pressure: 150/90 Pulse: 84 Respirations: 20 Pulse Ox (%): 96 - Physical Exam General: Alert, Oriented x3 Respiratory: Diminished, Expiratory wheezes Cardiovascular: No edema, Regular rate/rhythm - Studies Microbiology Data (last 24 hrs): 10/21/18 06:30 Sputum Gram Stain - Final Medications List Reviewed: Yes Assessment & Plan - Problems (Diagnosis) (1) Pneumonia Onset Date: 10/21/18 Current Visit: Yes Status: Acute Plan: Patient admitted with bilateral pneumonia I will cultures and negative is clinically improving room-air sats a satisfactory can be discharged home on levofloxacin for 7 days I have added a mirtazapine at night for possible depression insomnia and poor appetite Qualifiers: Pneumonia type: due to unspecified organism Laterality: right Lung location: lower lobe of lung Qualified Code(s): J18.1 - Lobar pneumonia, unspecified organism Physician Review Additional Text: Impression: Sepsis with acute on chronic respiratory failure secondary to COPD exacerbation with underlying severe COPD and right infrahilar pneumonia Chronic pain Hypertension Moderate malnutrition Depression Possible thrush Plan: Sepsis with acute on chronic respiratory failure secondary to COPD exacerbation with underlying severe COPD and bilateral pneumonia: Patient seems to have improved. Wean off oxygen. Pulmonology has transitioned IV Solu-Medrol to oral prednisone. Will continue with antibiotic therapy as per pulmonology. Patient may require home oxygen at discharge. Will talk to manager social media to arrange for home health and physical therapy as well. Will recheck chest x- ray. Will discuss with pulmonology about possible discharge in the next 24-48 hr. Chronic pain: Will continue with his home medication. Patient seen by pain management as an outpatient. Hypertension: Will review and restart home medication. Will monitor this closely. Moderate malnutrition: BMI 15. Will have nutrition evaluate and make recommendations to his diet. Depression: Pulmonology has added medication. Possible Thrush: Patient reports irritation to the mouth. Will start nystatin.
[2018-10-23] MEDS: HYDROCODONE/APAP 7.5/325 MG TAB PO PRN (11:05)
[2018-10-23] MEDS: ENSURE ENLIVE 237 ML CAN PO SCH (11:06)
--- NOTE | 2018-10-23 11:25 | P.DS ---
Admission Date: 10/21/18 Discharge Date: 10/23/18 Primary Care Provider: Dr. Alfredo; Pulmonary-Dr. Franklin Disposition: ROUTINE DISCHARGE Discharge Condition: FAIR Reason for Admission: COPD exacerbation pneumonia Consultations: Pulmonary-Dr. Franklin Procedures: CXR: COMPARISON: October 21 FINDINGS: Lungs are markedly hyperaerated. Diffuse bilateral pulmonary opacities are unchanged. The heart is normal size IMPRESSION: Marked COPD Diffuse bilateral pulmonary opacities probably representing pneumonia. Pulmonary edema is another consideration Medical problem list: Sepsis with acute on chronic respiratory failure secondary to COPD exacerbation with underlying severe COPD and right infrahilar pneumonia Chronic pain Hypertension Moderate malnutrition Depression with recent loss of family member/grief reaction Possible thrush Brief History of Present Illness: 72-year-old male with history of advanced COPD presented to the emergency room with increasing shortness of breath. Patient found to have COPD exacerbation with pneumonia. Pro calcitonin elevated. Patient admitted for treatment. Hospital Course: Patient presented with increasing shortness of breath with advanced COPD. Patient found to have sepsis with acute on chronic respiratory failure secondary to COPD exacerbation with underlying bilateral pneumonia and severe COPD. Patient was admitted for treatment. Patient started on IV antibiotic therapy. Patient seen by pulmonology. Patient continued to improve. Pro calcitonin now within normal range. White count improved. Respirations improved. At discharge he will continue with Levaquin 500 mg once daily for 7 days, prednisone 10 mg daily for 20 days. Patient will continue with his COPD medication including Atrovent 1 unit dose 4 times a day as needed for shortness of breath, albuterol 2 puffs 3 times a day as needed for shortness of breath, and Symbicort 160 mcg 2 puffs twice daily. Home oxygen will be set up to maintain sats above 90%. Patient will continue with home health and physical therapy. Recommendation is for the patient follow up with pulmonology in 1 week to monitor his progress. Recommendation to recheck chest x-ray in 2-4 weeks to monitor resolution. Recommendation to recheck lab-CBC and BMP in 1 week to monitor his progress. Patient has chronic pain. Patient seen by pain management as an outpatient. Patient to be with Neurontin 300 mg 1 pill 3 times a day and hydrocodone 7.5/ 325 mg 1 pill 3 times a day as needed for pain. Patient with depression with recent loss of mother. Pulmonology recommended to start medication. At discharge he will continue with mirtazapine 7.5 mg at bedtime. Pulmonology plans to follow up with the patient. Patient may require grief counseling. Patient has hypertension. Patient will continue with his medication of benazepril/hydrochlorothiazide 20/12.5 mg daily. Recommendation is to maintain blood pressures less 150/80. Further adjustment can be done by his PCP. Patient with moderate malnutrition. At discharge he will continue with Ensure 1 can twice daily. This can be further monitored and addressed by his PCP. Patient with possible thrush. Patient will continue with nystatin swish and swallow 4 times a day for 7 days. Magic mouth wash 4 times a day can be used as needed. Patient with mild constipation. Patient will be given lactulose twice daily as needed for constipation. Patient may continue with [id number] stool softener. Vital Signs/Physical Exam: Temp Pulse Resp BP Pulse Ox 99.2 F 84 20 150/90 H 96 10/23/18 10:53 10/23/18 10:53 10/23/18 10:53 10/23/18 10:53 10/23/18 10:53 General: Alert, In no apparent distress, Oriented x3, Cooperative HEENT: Atraumatic, Mucous membr. moist/pink Neck: Supple, No Thyromegaly Respiratory: Clear to auscultation bilaterally, Normal air movement Cardiovascular: Normal pulses, Regular rate/rhythm Gastrointestinal: Normal bowel sounds, Soft and benign, Non-distended, No tenderness, No masses, No rebound, No guarding Musculoskeletal: No contractures, No erythema, No tenderness, No warmth Integumentary: No tenderness/swelling, No erythema, No warmth, No cyanosis Neurological: Normal speech, Normal strength at 5/5 x4 extr, Normal tone, Normal affect Laboratory Data at Discharge: WBC 23.0 K/uL (4.3-10.9) H* D 10/23/18 08:25 Hgb 13.2 g/dL (13.6-17.9) L 10/23/18 08:25 Hct 37.6 % (39.6-49.0) L 10/23/18 08:25 Plt Count 569 K/uL (152-406) H 10/23/18 08:25 PT 16.9 SECONDS (9.5-12.5) H 10/20/18 18:48 INR 1.43 10/20/18 18:48 Sodium 135 mmol/L (136-145) L 10/23/18 08:25 Potassium 4.5 mmol/L (3.5-5.1) 10/23/18 08:25 BUN 37 mg/dL (7-18) H 10/23/18 08:25 Creatinine 0.90 mg/dL (0.55-1.3) 10/23/18 08:25 Glucose 94 mg/dL (74-106) 10/23/18 08:25 Magnesium 2.8 mg/dL (1.8-2.4) H D 10/23/18 08:25 Total Bilirubin 0.7 mg/dL (0.2-1.0) 10/20/18 18:48 AST 67 U/L (15-37) H 10/20/18 18:48 ALT 62 U/L (12-78) 10/20/18 18:48 Alkaline Phosphatase 166 U/L (45-117) H 10/20/18 18:48 Home Medications: Albuterol Sulfate [Proair Hfa] 2 puff IH Q4H PRN 10/21/18 Budesonide/Formoterol Fumarate [Symbicort 160-4.5 Mcg Inhaler] 2 puff IH BID Gabapentin [Neurontin*] 300 mg PO TID 10/21/18 Hydrocodone Bit/Acetaminophen [Hydrocodon-Acetaminoph 7.5-325] 1 tab PO TID Mirtazapine 7.5 mg PO BEDTIME #30 tablet 10/22/18 levoFLOXacin [Levaquin] 500 mg PO DAILY #7 tab 10/22/18 predniSONE [Deltasone*] 10 mg PO DAILY #20 tab 10/22/18 Benazepril/Hydrochlorothiazide [Benazepril-Hctz 20-12.5 mg Tab] 1 each PO DAILY #30 tablet 10/23/18 Ensure Enlive 237 ml PO BID #60 can 10/23/18 Ipratropium Neb [Atrovent*] 0.5 mg NEB Q4HP PRN amp 10/23/18 Ipratropium Neb [Atrovent*] 0.5 mg NEB [id number] amp 10/23/18 Lactulose [Cephulac*] 30 ml PO BID PRN #1 bottle 10/23/18 Magic Mouthwash [Magic Mouthwash*] 15 ml PO QID PRN #1 btl 10/23/18 Nystatin 5 ml PO QID #1 bottle 10/23/18 New Medications: Benazepril/Hydrochlorothiazide [Benazepril-Hctz 20-12.5 mg Tab] 1 each PO DAILY #30 tablet Ensure Enlive 237 ml PO BID #60 can Lactulose [Cephulac*] 30 ml PO BID PRN #1 bottle PRN Reason: Constipation levoFLOXacin [Levaquin] 500 mg PO DAILY #7 tab Magic Mouthwash [Magic Mouthwash*] 15 ml PO QID PRN #1 btl PRN Reason: Sore Throat Mirtazapine 7.5 mg PO BEDTIME #30 tablet Nystatin 5 ml PO QID #1 bottle predniSONE [Deltasone*] 10 mg PO DAILY #20 tab Patient Discharge Instructions: 1. Patient will need to follow up with his PCP in 1 week to follow up this hospitalization. 2. Patient presented with increasing shortness of breath with advanced COPD. Patient found to have sepsis with acute on chronic respiratory failure secondary to COPD exacerbation with underlying bilateral pneumonia and severe COPD. Patient was admitted for treatment. Patient started on IV antibiotic therapy. Patient seen by pulmonology. Patient continued to improve. Pro calcitonin now within normal range. White count improved. Respirations improved. At discharge he will continue with Levaquin 500 mg once daily for 7 days, prednisone 10 mg daily for 20 days. Patient will continue with his COPD medication including Atrovent 1 unit dose 4 times a day as needed for shortness of breath, albuterol 2 puffs 3 times a day as needed for shortness of breath, and Symbicort 160 mcg 2 puffs twice daily. Home oxygen will be set up to maintain sats above 90%. Patient will continue with home health and physical therapy. Recommendation is for the patient follow up with pulmonology in 1 week to monitor his progress. Recommendation to recheck chest x-ray in 2-4 weeks to monitor resolution. Recommendation to recheck lab-CBC and BMP in 1 week to monitor his progress. 3. Patient has chronic pain. Patient seen by pain management as an outpatient. Patient to be with Neurontin 300 mg 1 pill 3 times a day and hydrocodone 7.5/325 mg 1 pill 3 times a day as needed for pain. 4. Patient with depression with recent loss of mother. Pulmonology recommended to start medication. At discharge he will continue with mirtazapine 7.5 mg at bedtime. Pulmonology plans to follow up with the patient. Patient may require grief counseling. 5. Patient has hypertension. Patient will continue with his medication of benazepril/hydrochlorothiazide 20/12.5 mg daily. Recommendation is to maintain blood pressures less 150/80. Further adjustment can be done by his PCP. 6. Patient with moderate malnutrition. At discharge he will continue with Ensure 1 can twice daily. This can be further monitored and addressed by his PCP. 7. Patient with possible thrush. Patient will continue with nystatin swish and swallow 4 times a day for 7 days. Magic mouth wash 4 times a day can be used as needed. 8. Patient with mild constipation. Patient will be given lactulose twice daily as needed for constipation. Patient may continue with [id number] stool softener. Diet: AHA Activity: Fall precautions Followup: Raul Franklin MD [Primary Care Provider] - Time spent managing pt's care (in minutes): 55
[2018-10-23] MEDS: VANCOMYCIN/NS 1 gm 1 GM/250 ML BAG IV SCH (15:15)
[2018-10-23 17:54] VITALS: BP 193/90; TEMP 98.7
== END 2018-10-23 19:40 | disposition home health service (06) | DRG 871 ==
LOC: ER 15:16 → ERHOLD 19:45 → 4TH 22:55 → OBSVTOIN 10-21 11:01
PROVIDERS: ADMIT Internal Medicine; ATTEND Internal Medicine
DX: A41.9 Sepsis, unspecified organism (principal); J18.9 Pneumonia, unspecified organism; J96.21 Acute and chronic respiratory failure with hypoxia; J44.0 Chronic obstructive pulmonary disease with (acute) lower respiratory infection; J44.1 Chronic obstructive pulmonary disease with (acute) exacerbation; E46 Unspecified protein-calorie malnutrition; Z68.1 Body mass index [BMI] 19.9 or less, adult; B37.0 Candidal stomatitis; F17.210 Nicotine dependence, cigarettes, uncomplicated; F32.9 Major depressive disorder, single episode, unspecified; I10 Essential (primary) hypertension; G89.29 Other chronic pain; F43.20 Adjustment disorder, unspecified; K59.00 Constipation, unspecified; Z88.0 Allergy status to penicillin
CPT/HCPCS: 36415; 71045; 71046; 80048; 80076; 80202; 81003; 82565; 82805; 83605; 83735; 83880; 84145; 84484; 85025; 85027; 85610; 87040; 87070; 87077; 87186; 87205; 87804; 93005; 94640; 94760; 96365; 96366; 96375; 97163; 99285; G0378; J0360; J0692; J1100; J1650; J2270; J2405; J2550; J2920; J3370; J7030; J7512; J7605

== ENCOUNTER 2018-12-27 11:07 | Observation (INO) | payer OTHER, MEDICARE ==
[2018-12-27] MEDS ORDERED: ALBUTEROL 2.5 MG/3 ML NEB SOL ONE (11:43)
[2018-12-27] MEDS ORDERED: IPRATROPIUM BROM 0.5MG/2.5ML ONE (11:43)
[2018-12-27] MEDS ORDERED: MAGNESIUM SULFATE 1 gm IVPB 1 GM/100 ML BAG IV ONE (11:43)
[2018-12-27] MEDS ORDERED: METHYLPREDNISOLONE 125 MG INJ ONE (11:43)
[2018-12-27 11:45] LABS: Absolute Lymphocytes (CBC) 2.9 K/uL (0.7-4.9); Absolute Monocytes 1.3 K/uL (0.1-1.3); Absolute Neutrophil 10.2 K/uL (1.8-8.0); Basophils % 0.6 % (0-1.3); Eosinophils % 4.8 % (0-4.4); Hematocrit 37.2 % (39.6-49.0); Lymphocytes % 19.1 % (15.3-44.8); MPV 6.9 fL (7.6-11.3); Monocytes % 8.8 % (3.3-12.3); RBC Red Blood Cell Count 4.25 M/uL (4.33-5.43)
[2018-12-27 12:09] LABS: Albumin 3.1 g/dL (3.4-5.0); Bilirubin Direct 0.1 mg/dL (0-0.2); Bilirubin Total 0.4 mg/dL (0.2-1.0); Magnesium 2.1 mg/dL (1.8-2.4); Potassium 3.9 mmol/L (3.5-5.1); Protein, Total 8.3 g/dL (6.4-8.2); Troponin (Emerg Dept Use Only) 0.05 ng/mL (0.0-0.045)
[2018-12-27 12:14] LABS: Protime INR 1.22
--- NOTE | 2018-12-27 12:18 | RAD REPORT ---
EXAM DESCRIPTION: Ines Single View12/27/2018 12:03 pm CLINICAL HISTORY: Chest pain COMPARISON: September 2018 FINDINGS: The lungs are markedly hyperaerated. Bilateral interstitial lung opacities are without obvious change. Mild opacity has developed within the mid lateral left lung The heart is normal size IMPRESSION: Marked COPD Extensive bilateral interstitial lung opacities without obvious change. The majority of this probably represents pulmonary fibrosis. Mild left lung opacity which has developed probably represents pneumonia
--- NOTE | 2018-12-27 12:58 | EKG ---
Test Date: 2018-11-26 Test Time: 11:19:25 Master Hearth Technician: NAIMA MEASUREMENT RESULTS: Intervals: Rate: 95 WA: 132 QRSD: 76 QT: 338 QTc: 424 [place]: P: 83 WA: 132 QRS: 85 T: 76 INTERPRETIVE STATEMENTS: Normal sinus rhythm Right atrial enlargement Borderline ECG Compared to ECG 10/20/2018 15:22:17 Atrial abnormality now present Sinus tachycardia no longer present Atrial premature complex(es) no longer present Electronically Signed On 12-27-18 12:57:56 LENS GRINDER by Ean Mohan
--- NOTE | 2018-12-27 13:21 | ER ---
Nurse's Notes [facility] Name: Jason Anand Sr Age: 73 yrs Sex: Male : 1945 Arrival Date: 12/27/2018 Time: 11:08 Bed 3 Private MD: Jadon Du Diagnosis: Chronic obstructive pulmonary disease, unspecified;Pneumonia due to other specified bacteria Presentation: 12/27 11:15 Presenting complaint: Friend states: He has COPD, and had to wear o2 at home but his sg sats were too good to continue home o2. Well today, hes been having a really hard time taking breaths in, just really rapid breathing, cant catch his breath. worsens with walking. Transition of care: patient was not received from another setting of care. Onset of symptoms was December 27, 2018. Risk Assessment: Do you want to hurt yourself or someone else? Patient reports no desire to harm self or others. Initial Sepsis Screen: Does the patient meet any 2 criteria? RR > 20 per min. HR > 90 bpm. Does the patient have a suspected source of infection? No. Patient's initial sepsis screen is negative. Care prior to arrival: None. 11:15 Method Of Arrival: Wheelchair sg 11:15 Acuity: CARLOS 2 sg Triage Assessment: 11:15 Pain: Denies pain. iw 11:40 Respiratory: the patient has moderate shortness of breath. iw 11:40 Respiratory: Onset: The symptoms/episode began/occurred yesterday. iw 15:05 General: Appears in no apparent distress. Behavior is calm, cooperative. Respiratory: iw Reports shortness of breath. Historical: - Allergies: 11:10 PENICILLINS; sg - PMHx: 11:10 COPD; sg - Immunization history:: Adult Immunizations unknown. - Social history:: Smoking status: Patient/guardian denies using tobacco. - Ebola Screening: : Patient negative for fever greater than or equal to 101.5 degrees Fahrenheit, and additional compatible Ebola Virus Disease symptoms Patient denies exposure to infectious person Patient denies travel to an Ebola-affected area in the 21 days before illness onset No symptoms or risks identified at this time. Screenin:56 Abuse screen: Denies threats or abuse. Denies injuries from another. Nutritional iw screening: No deficits noted. Tuberculosis screening: No symptoms or risk factors identified. Fall Risk IV access (20 points). Assessment: 11:40 Cardiovascular: Rhythm is sinus tachycardia. iw 11:51 Reassessment: Patient appears in no apparent distress at this time. pt 100% on neb iw mask, magnesium running to RAC, VSS, family at bedside, pt states he recently stopped smoking a few weeks ago, c/o SOB for a couple days, denies fever, states he has similar cough to what he always has. 13:00 Respiratory: Airway is patent Respiratory effort is even, labored, Breath sounds are iw diminished bilaterally. 13:25 Reassessment: Patient appears in no apparent distress at this time. Patient and/or iw family updated on plan of care and expected duration. Pain level reassessed. Patient is alert, oriented x 3, equal unlabored respirations, skin warm/dry/pink. Patient states feeling better. Patient states symptoms have improved. 13:30 Reassessment: Pt refuses Lovenox injection, pt states he feels better and wants to go iw home after IV antibiotic, MYRON Starkey notified. 13:47 Reassessment: pt O2 dropped to 85% while off oxygen, pt agrees to remain in hospital iw for observation. Vital Signs: 11:10 Pulse 105; Resp 32; Temp 97.2; Pulse Ox 91% on R/A; Pain 2/10; sg 11:11 BP 181 / 81; sg 11:51 BP 169 / 84; Pulse 86; Resp 26 S; Pulse Ox 100% on Nebulizer Mask; iw 13:16 BP 154 / 79; Pulse 84; Resp 16; Pulse Ox 99% on 4 lpm NC; em1 ED Course: 11:08 Patient arrived in ED. sb2 11:09 Jadon Du DO is Private Physician. sb2 11:10 Patient has correct armband on for positive identification. iw 11:16 Triage completed. sg 11:16 Arm band placed on. sg 11:19 Lee Machado PA is PHCP. cp 11:[address] MD is Attending Physician. cp 11:19 Mitesh Dias MD is Attending Physician. cp 11:29 Kamilla Schwartz, JEREMY is Primary Nurse. iw 11:38 EKG done, by soil field technician. reviewed by Lee SANCHES. at1 11:40 Inserted saline lock: 20 gauge in right antecubital area, using aseptic technique. iw Patient admitted, IV remains in place. 11:53 X-ray completed. Portable x-ray completed in exam room. Patient tolerated procedure sw well. 12:01 XRAY Chest (1 view) In Process Unspecified. EDMS 13:20 Radha Rose MD is Hospitalizing Provider. cp 13:[address] via wheelchair. sg4 13:38 Thorax Wo Con In Process Unspecified. EDMS 13:[address] from [address]. sg4 15:05 No provider procedures requiring assistance completed. iw Administered Medications: 11:45 Drug: SOLU-Medrol 125 mg Route: IVP; Site: right antecubital; iw 11:53 Drug: Magnesium Sulfate 1 grams Route: IVPB; Infused Over: 1 hrs; Site: right iw antecubital; 11:54 Drug: Albuterol - atroVENT (3:1) (2.5 mg - 0.5 mg) 3 ml Route: Nebulizer; iw 13:25 Drug: LevaQUIN 750 mg Volume: 150 ml; Route: IVPB; Infused Over: 90 mins; Site: right iw antecubital; 14:22 Not Given (Patient Refused): Lovenox 40 mg Sub-Q once iw Outcome: 13:20 Decision to Hospitalize by Provider. cp 15:05 Admitted to Med/surg accompanied by tech, via wheelchair, with oxygen, with chart. iw 15:05 Condition: good 15:05 Instructed on the need for admit. 15:06 Patient left the ED. iw Signatures: Dispatcher [employer] EDMS Miguelangel Bruce RN RN sg Williams, Irene, RN RN iw Jin Gomes em1 Marii Harry, quilt maker EKG Mike1 Maura Gray Corey, PA PA cp Billeau, Sheri sb2 Ellyn Lopez sg4
--- NOTE | 2018-12-27 13:22 | EDPHYS ---
Physician Documentation [facility] Name: Jason Anand Sr Age: 73 yrs Sex: Male : 1945 Arrival Date: 12/27/2018 Time: 11:08 Bed 3 Private MD: Jadon Du ED Physician Mitesh Dias HPI: 12/27 11:35 This 73 yrs old Male presents to ER via Wheelchair with complaints of cp Breathing Difficulty. 11:35 The patient has shortness of breath at rest. Onset: The symptoms/episode began/occurred cp gradually. Duration: The symptoms are continuous, and are steadily getting worse. Associated signs and symptoms: Pertinent positives: non-productive cough, Pertinent negatives: chest pain, diaphoresis, dizziness, fever, hemoptysis. Severity of symptoms: in the emergency department the symptoms are unchanged. The patient has experienced similar episodes in the past, multiple times. Historical: - Allergies: 11:10 PENICILLINS; sg - PMHx: 11:10 COPD; sg - Immunization history:: Adult Immunizations unknown. - Social history:: Smoking status: Patient/guardian denies using tobacco. - Ebola Screening: : Patient negative for fever greater than or equal to 101.5 degrees Fahrenheit, and additional compatible Ebola Virus Disease symptoms Patient denies exposure to infectious person Patient denies travel to an Ebola-affected area in the 21 days before illness onset No symptoms or risks identified at this time. ROS: 11:40 Constitutional: Negative for body aches, chills, fever, poor PO intake. cp 11:40 Eyes: Negative for injury, pain, redness, and discharge. cp 11:40 ENT: Negative for drainage from ear(s), ear pain, sore throat, difficulty swallowing, difficulty handling secretions. 11:40 Cardiovascular: Negative for chest pain, edema, palpitations. 11:40 Respiratory: Positive for cough, shortness of breath, at rest. Negative for hemoptysis. 11:40 Abdomen/GI: Negative for abdominal pain, nausea, vomiting, and diarrhea, black/tarry stool, rectal bleeding. 11:40 Back: Negative for pain at rest, pain with movement. 11:40 : Negative for urinary symptoms. 11:40 Skin: Negative for cellulitis, rash. 11:40 Neuro: Negative for altered mental status, headache, syncope, weakness. 11:40 All other systems are negative. Exam: 11:30 ECG was reviewed by the Attending Physician. cp 11:45 Constitutional: The patient appears in no acute distress, alert, awake, cp non-diaphoretic, non-toxic, well developed, well nourished. 11:45 Head/Face: Normocephalic, atraumatic. cp 11:45 Eyes: Periorbital structures: appear normal, Pupils: equal, round, and reactive to light and accomodation, Extraocular movements: intact throughout, Conjunctiva: normal, no exudate, no injection, Sclera: no appreciated abnormality, Lids and lashes: appear normal, bilaterally. 11:45 ENT: External ear(s): are unremarkable, Ear canal(s): are normal, clear, TM's: are normal, no evidence of bulging, no erythema, Nose: is normal, Mouth: Lips: moist, Oral mucosa: pink and intact, moist, Posterior pharynx: Airway: no evidence of obstruction, patent. 11:45 Neck: ROM/movement: is normal, is supple, without pain, no range of motions limitations, no meningismus, no nuchal rigidity. 11:45 Chest/axilla: Inspection: normal, Palpation: is normal, no crepitus, no tenderness. 11:45 Cardiovascular: Rate: tachycardic, Rhythm: regular, Heart sounds: murmur, not appreciated, rub, not appreciated, gallop, not appreciated, Edema: is not appreciated, JVD: is not appreciated. 11:45 Respiratory: the patient does not display signs of respiratory distress, Respirations: normal, no use of accessory muscles, no retractions, no splinting, no tachypnea, labored breathing, is not present, Breath sounds: decreased breath sounds, that are moderate, throughout, stridor, is not appreciated, wheezing: that is mild, is heard diffusely. 11:45 Abdomen/GI: Inspection: abdomen appears normal, Bowel sounds: active, all quadrants, Palpation: abdomen is soft and non-tender, in all quadrants, rebound tenderness, is not appreciated, voluntary guarding, is not appreciated, involuntary guarding, is not appreciated. 11:45 Back: pain, is absent, ROM is normal. 11:45 Skin: cellulitis, is not appreciated, no rash present. 11:45 Neuro: Orientation: to person, place \T\ time. Mentation: is normal, Cerebellar function: is grossly normal, Motor: moves all fours, strength is normal, Sensation: is normal. Vital Signs: 11:10 Pulse 105; Resp 32; Temp 97.2; Pulse Ox 91% on R/A; Pain 2/10; sg 11:11 BP 181 / 81; sg 11:51 BP 169 / 84; Pulse 86; Resp 26 S; Pulse Ox 100% on Nebulizer Mask; iw 13:16 BP 154 / 79; Pulse 84; Resp 16; Pulse Ox 99% on 4 lpm NC; em1 MDM: 11:24 Patient medically screened. cp 12:00 Differential diagnosis: Bronchitis CHF exacerbation, Chronic Obstructive Pulmonary cp Disease Myocardial Infarction pneumonia, Pneumothorax pulmonary edema, Pulmonary Embolism Unstable Angina. 13:00 Data reviewed: vital signs, nurses notes, lab test result(s), EKG, radiologic studies, cp plain films, and as a result, I will admit patient. 13:00 Test interpretation: by ED physician or midlevel provider: ECG, plain radiologic cp studies. Response to treatment: the patient's symptoms have mildly improved after treatment. 13:15 Physician consultation: Radha Rose MD was contacted at 13:15, regarding admission, cp to the telemetry unit. patient's condition. 12/27 11:26 Order name: Influenza Screen (a \T\ B); Complete Time: 12:45 cp / 11:26 Order name: Basic Metabolic Panel; Complete Time: 12:45 cp 02 11:26 Order name: CBC with Diff; Complete Time: 12:45 cp 12/27 11:26 Order name: LFT's; Complete Time: 12:45 cp 02/04 11:26 Order name: Magnesium; Complete Time: 12:45 cp 02/04 11:26 Order name: NT PRO-BNP; Complete Time: 12:45 cp 02/04 11:26 Order name: PT-INR; Complete Time: 12:45 cp 02/04 11:26 Order name: Troponin (emerg Dept Use Only); Complete Time: 12:45 cp / 11:26 Order name: XRAY Chest (1 view); Complete Time: 12:45 cp 02/ 11:26 Order name: Procalcitonin; Complete Time: 12:45 cp 02/ 11:26 Order name: Lactate; Complete Time: 12:45 cp 12/27 11:26 Order name: Blood Culture Adult (2) cp 12/27 13:28 Order name: Thorax Wo Con; Complete Time: 15:00 EDMS 12/27 11:26 Order name: EKG; Complete Time: 11:27 cp 12/27 11:26 Order name: Cardiac monitoring; Complete Time: 11:55 cp 12/27 11:26 Order name: EKG - Nurse/Tech; Complete Time: 11:55 cp 12/27 11:26 Order name: IV Saline Lock; Complete Time: : cp 12/27 11:26 Order name: Labs collected and sent; Complete Time: : cp 12/27 11:26 Order name: O2 Per Protocol; Complete Time: : cp 12/27 11: Order name: O2 Sat Monitoring; Complete Time: cp 12/27 13:28 Order name: CONS Physician Consult EDMS EC:30 Rate is 95 beats/min. Rhythm is regular. NV interval is normal. QRS interval is normal. cp QT interval is normal. Interpreted by me. Reviewed by me. Administered Medications: 11:45 Drug: SOLU-Medrol 125 mg Route: IVP; Site: right antecubital; iw 11:53 Drug: Magnesium Sulfate 1 grams Route: IVPB; Infused Over: 1 hrs; Site: right iw antecubital; 11:54 Drug: Albuterol - atroVENT (3:1) (2.5 mg - 0.5 mg) 3 ml Route: Nebulizer; iw 13:25 Drug: LevaQUIN 750 mg Volume: 150 ml; Route: IVPB; Infused Over: 90 mins; Site: right iw antecubital; 14:22 Not Given (Patient Refused): Lovenox 40 mg Sub-Q once iw Disposition: 15:42 Co-signature as Attending Physician, Mitesh Dias MD. rn Disposition: 12/27/18 13:20 Hospitalization ordered by Radha Rose for Observation. Preliminary diagnosis are Chronic obstructive pulmonary disease, unspecified, Pneumonia due to other specified bacteria. - Bed requested for Telemetry/MedSurg (observation). - Status is Observation. iw - Condition is Stable. - Problem is new. - Symptoms have improved. UTI on Admission? No Signatures: Dispatcher [employer] EDDC Vivienne Bradshaw, RN RN dw Miguelangel Bruce, RN JEREMY sg Kamilla Schwartz, RN RN iw Mitesh Dias MD MD rn Page, Corey, PA PA cp Corrections: (The following items were deleted from the chart) 14:16 13:20 Hospitalization Ordered by Radha Rose MD for Observation. Preliminary dw diagnosis is Chronic obstructive pulmonary disease, unspecified; Pneumonia due to other specified bacteria. Bed requested for Telemetry/MedSurg (observation). Status is Observation. Condition is Stable. Problem is new. Symptoms have improved. UTI on Admission? No. cp 14:22 14:16 12/27/2018 13:20 Hospitalization Ordered by Radha Rose MD for Observation. dw Preliminary diagnosis is Chronic obstructive pulmonary disease, unspecified; Pneumonia due to other specified bacteria. Bed requested for Telemetry/MedSurg (observation). Status is Observation. Condition is Stable. Problem is new. Symptoms have improved. UTI on Admission? No. dw 15:06 14:22 12/27/2018 13:20 Hospitalization Ordered by Radha Rose MD for Observation. iw Preliminary diagnosis is Chronic obstructive pulmonary disease, unspecified; Pneumonia due to other specified bacteria. Bed requested for Telemetry/MedSurg (observation). Status is Observation. Condition is Stable. Problem is new. Symptoms have improved. UTI on Admission? No. dw
[2018-12-27] MEDS ORDERED: Levofloxacin 750mg IV 750 MG/150 ML BAG IV ONE (13:28)
[2018-12-27] MEDS ORDERED: ENOXAPARIN 40 MG/0.4 ML SQ ONE (13:28)
--- NOTE | 2018-12-27 13:51 | RAD REPORT ---
EXAM DESCRIPTION: CT - Thorax Wo Con CLINICAL HISTORY: Chest pain PNA COMPARISON: THORAX W CONTRAST dated 07/20/2007; Chest Single View dated 12/27/2018 FINDINGS: Advanced COPD is present. Areas of scarring with linear calcification is present in both l teresa apices. Irregular scarring with bronchiectasis is seen as well in the right upper lobe. Bronchiec tasis is seen in both lower lobes with poorly defined areas of spiculated scarring noted. Irregular l inear opacity in the lingula and lung bases likely represent additional areas pleuroparenchymal scarr ing. Although superimposed pneumonia is possible, imaging findings typically seen in bacterial pneumo chay are not identified. The majority of the irregular pulmonary opacities are favored to be related t o scarring. No pneumothorax. No axillary, mediastinal or hilar adenopathy. No concerning bony finding. No gross upper abdominal finding. All CT scans are performed using dose optimization technique as appropriate and may include automated exposure control or mA/KV adjustment according to patient size. IMPRESSION: Severe COPD is identified with traction bronchiectasis and extensive areas of linear sca rring.No focal consolidation typical of bacterial pneumonia is seen.
[2018-12-27] MEDS: IPRATROPIUM BROM 0.5MG/2.5ML NEB SCH ×2 (14:00→20:00)
[2018-12-27] MEDS: LEVALBUTEROL 0.63 MG/3 ML NEB NEB SCH ×2 (14:00→20:00)
--- NOTE | 2018-12-27 15:10 | P.HP ---
Certification for Inpatient Patient admitted to: Observation With expected LOS: <2 Midnights Patient will require the following post-hospital care: None Practitioner: I am a practitioner with admitting privileges, knowledge of patient current condition, hospital course, and medical plan of care. Services: Services provided to patient in accordance with Admission requirements found in Title 42 Section 412.3 of the Code of Federal Regulations Patient History Date of Service: 12/27/18 History of Present Illness: 73 y/o M with pmhx HTN and Sever COPD who quit smoking 2 weeks ago came to the hospital for SOB and cough. Pt has been having SOB for past 2 days and getting progressively worse. Has been using inhalers at home but no improvement. No other c/o overnight. Denies fever, Chills, CP or any other complains to offer. In the ER pt was found to have Dyspnea, Tachypnea, xray was possible for PNA and thus patient was admitted for further workup and care. Allergies Penicillins Allergy (Verified 10/20/18 21:00) Itching/Hives/Rash Home Medications: Albuterol Sulfate [Proair Hfa] 8.5 gm IH Q4HP PRN 12/27/18 Benazepril/Hydrochlorothiazide [Benazepril-Hctz 20-12.5 mg Tab] 1 each PO DAILY 12/27/18 Budesonide/Formoterol Fumarate [Symbicort 160-4.5 Mcg Inhaler] 2 puff IH BID 03/11 Gabapentin 300 mg PO TID 12/27/18 Hydrocodone 7.5/APAP 325 [[place]ley 7.5/325 mg] 1 tab PO TID 12/27/18 Mirtazapine [Remeron] 15 mg PO BEDTIME 12/27/18 - Past Medical/Surgical History Diabetic: No -: COPD -: HTN -: tobacco abuse -: fibromyalgia -: emphysema -: knee sx - Family History Father -: Cancer Mother Notes: pneumonia - Social History Alcohol use: No CD- Drugs: No Caffeine use: Yes Review of Systems 10-point ROS is otherwise unremarkable Physical Examination - Physical Exam General: Alert, Moderate distress HEENT: Atraumatic, PERRLA, Mucous membr. moist/pink, EOMI, Sclerae nonicteric Neck: Supple, 2+ carotid pulse no bruit, No LAD, Without JVD or thyroid abnormality Respiratory: Normal air movement, Expiratory wheezes, Inspiratory wheezes, Rhonchi/gurgles Cardiovascular: Regular rate/rhythm, Normal S1 S2 Gastrointestinal: Normal bowel sounds, No tenderness Musculoskeletal: No tenderness Integumentary: No rashes Neurological: Normal gait, Normal speech, Normal strength at 5/5 x4 extr, Normal tone, Normal affect Lymphatics: No axilla or inguinal lymphadenopathy - Studies Laboratory Data (last 24 hrs) 12/27/18 11:35: PT 14.5 H, INR 1.22 12/27/18 11:35: WBC 15.2 H, Hgb 12.3 L, Hct 37.2 L, Plt Count 582 H 12/27/18 11:35: Sodium 137, Potassium 3.9, BUN 16, Creatinine 1.09, Glucose 92, Magnesium 2.1 D, Total Bilirubin 0.4, AST 19, ALT 13, Alkaline Phosphatase 88 Microbiology Data (last 24 hrs): 12/27/18 11:35 Nasopharnyx Influenza Type A Antigen Screen - Final 12/27/18 11:35 Nasopharnyx Influenza Type B Antigen Screen - Final Assessment and Plan - Problems (Diagnosis) (1) COPD exacerbation Onset Date: 10/21/18 Current Visit: No Status: Acute Plan: COPD exacerbation most likely secondary to viral illness. Patient with severe COPD and extensive bronchiectasis on chest CT. -DuoNeb, steroids, oxygen at this time -pulmonology consult. Awaiting recommendations at this time (2) Bronchiectasis Current Visit: Yes Status: Chronic Plan: Extensive bronchiectasis on the CT noted. -pulmonology consulted. Awaiting recommendations at this time -currently like mentioned before patient is going to be on ipratropium, Albuterol, steroids Qualifiers: Bronchiectasis type: uncomplicated Qualified Code(s): J47.9 - Bronchiectasis, uncomplicated (3) HTN (hypertension) Current Visit: Yes Status: Chronic Plan: Will restart home medication Qualifiers: Hypertension type: essential hypertension Qualified Code(s): I10 - Essential (primary) hypertension - Advance Directives Does patient have a Living Will: No Does patient have a Durable POA for Healthcare: No
[2018-12-27] MEDS ORDERED: ACETAMINOPHEN 500 MG TAB PO PRN (15:11)
[2018-12-27] MEDS ORDERED: ONDANSETRON 4 MG/2 ML VIAL IV PRN (15:11)
[2018-12-27] MEDS: ENOXAPARIN 40 MG/0.4 ML SQ SCH (16:00)
[2018-12-27 16:02] VITALS: BMI 15.4
[2018-12-27] MEDS: hydroCHLOROthiazide 12.5 MG CAP PO SCH (17:27)
[2018-12-27] MEDS: BENAZEPRIL 20 MG TAB PO SCH (17:28)
[2018-12-27] MEDS: predniSONE 20 MG TAB PO SCH (21:00)
[2018-12-27] MEDS ORDERED: MIRTAZAPINE 15 MG TAB PO SCH (21:00)
[2018-12-27] MEDS: GABAPENTIN 300 MG CAP PO SCH (21:00)
[2018-12-28] MEDS ORDERED: HYDRALAZINE HCL 20 MG/ML VIAL IV PRN (00:53)
[2018-12-28] MEDS: LEVALBUTEROL 0.63 MG/3 ML NEB NEB SCH ×3 (02:00→13:40)
[2018-12-28] MEDS: IPRATROPIUM BROM 0.5MG/2.5ML NEB SCH ×3 (02:00→13:40)
[2018-12-28 05:08] LABS: Absolute Lymphocytes (CBC) 2.5 K/uL (0.7-4.9); Absolute Monocytes 0.5 K/uL (0.1-1.3); Absolute Neutrophil 13.8 K/uL (1.8-8.0); Basophils % 0.1 % (0-1.3); Eosinophils % 0.1 % (0-4.4); Hematocrit 40.5 % (39.6-49.0); MPV 7.3 fL (7.6-11.3); Monocytes % 2.8 % (3.3-12.3)
[2018-12-28 05:18] LABS: Bilirubin Total 0.4 mg/dL (0.2-1.0); Magnesium 2.1 mg/dL (1.8-2.4); Potassium 4.6 mmol/L (3.5-5.1); Protein, Total 8.4 g/dL (6.4-8.2)
[2018-12-28] MEDS ORDERED: ARFORMOTEROL TARTRATE 15 MCG/2 ML VIAL.NEB NEB SCH (08:39)
--- NOTE | 2018-12-28 08:41 | P.CNS ---
Date of Consult: 12/28/18 Chief Complaint: COPD exacerbation History of Present Illness: Patient is 73 years of age with terminal COPD admitted with worsening dyspnea for about a week associated with a productive phlegm compliant with his medications denies any fever or chills. No hemoptysis or chest pain Allergies Penicillins Allergy (Verified 10/20/18 21:00) Itching/Hives/Rash Home Medications: Albuterol Sulfate [Proair Hfa] 8.5 gm IH Q4HP PRN 12/27/18 Benazepril/Hydrochlorothiazide [Benazepril-Hctz 20-12.5 mg Tab] 1 each PO DAILY 12/27/18 Budesonide/Formoterol Fumarate [Symbicort 160-4.5 Mcg Inhaler] 2 puff IH BID 03/11 Gabapentin 300 mg PO TID 12/27/18 Hydrocodone 7.5/APAP 325 [[place] 7.5/325 mg] 1 tab PO TID 12/27/18 Mirtazapine [Remeron] 15 mg PO BEDTIME 12/27/18 - Past Medical/Surgical History Diabetic: No -: COPD -: HTN -: tobacco abuse -: fibromyalgia -: emphysema -: knee sx - Family History Father Medical History: Cancer Mother Notes: pneumonia - Social History Alcohol use: No CD- Drugs: No Caffeine use: Yes Place of Residence: Home Review of Systems 10-point ROS is otherwise unremarkable General: Weakness Respiratory: Cough, Shortness of Breath Physical Examination Temp Pulse Resp BP Pulse Ox 98.3 F 93 H 18 131/79 98 12/28/18 04:00 12/28/18 04:00 12/28/18 04:00 12/28/18 04:00 12/28/18 04:00 General: Alert, In no apparent distress, Oriented x3 Neck: Supple Respiratory: Clear to auscultation bilaterally, Diminished Cardiovascular: No edema, Regular rate/rhythm, Normal S1 S2 Gastrointestinal: Normal bowel sounds, Soft and benign Musculoskeletal: No clubbing, No swelling Laboratory Data (last 24 hrs) 12/27/18 11:35: PT 14.5 H, INR 1.22 12/27/18 11:35: WBC 15.2 H, Hgb 12.3 L, Hct 37.2 L, Plt Count 582 H 12/27/18 11:35: Sodium 137, Potassium 3.9, BUN 16, Creatinine 1.09, Glucose 92, Magnesium 2.1 D, Total Bilirubin 0.4, AST 19, ALT 13, Alkaline Phosphatase 88 - Problems (1) COPD exacerbation Onset Date: 10/21/18 Current Visit: No Status: Acute Plan: Patient is 73 years of age well known to me admitted with worsening shortness of breath he has had patchy presumed inflammatory changes worse in the left lung possibly scarring patient's white count is elevated chemistries unremarkable pro calcitonin level is negative vital signs stable oxygenation satisfactory continue with bronchodilators steroids sputum cultures patient states that the pro air at Symbicort have not been effective will consider long- acting nebulized bronchodilator his vital signs are stable
[2018-12-28] MEDS ORDERED: HYDROCHLOROTHIAZIDE PO SCH (09:00)
[2018-12-28] MEDS ORDERED: BENAZEPRIL PO SCH (09:00)
[2018-12-28] MEDS ORDERED: levoFLOXacin 500 MG TAB PO SCH (09:00)
[2018-12-28] MEDS ORDERED: [UNRECOGNIZED DRUG - OTHER] PO SCH (09:00)
[2018-12-28] MEDS: ENOXAPARIN 40 MG/0.4 ML SQ SCH (09:00)
[2018-12-28] MEDS ORDERED: INFLUENZA VACCINE (for 3y+) 0.5 ML DOSE IMVAC ONE (10:00)
[2018-12-28] MEDS: GABAPENTIN 300 MG CAP PO SCH ×2 (10:42→14:11)
[2018-12-28] MEDS: BENAZEPRIL 20 MG TAB PO SCH (10:42)
[2018-12-28] MEDS: hydroCHLOROthiazide 12.5 MG CAP PO SCH (10:43)
[2018-12-28] MEDS: predniSONE 20 MG TAB PO SCH (10:44)
[2018-12-28 14:18] VITALS: O2SAT 96
[2018-12-28 17:18] VITALS: BP 143/61; TEMP 99.2
--- NOTE | 2018-12-28 17:44 | P.SSS ---
Patient History Date of Service: 12/28/18 Reason for admission: COPD exacerbation History of Present Illness: From H and P 73 y/o M with pmhx HTN and Sever COPD who quit smoking 2 weeks ago came to the hospital for SOB and cough. Pt has been having SOB for past 2 days and getting progressively worse. Has been using inhalers at home but no improvement. No other c/o overnight. Denies fever, Chills, CP or any other complains to offer. Allergies Penicillins Allergy (Verified 10/20/18 21:00) Itching/Hives/Rash Home medications list reviewed: Yes Home Medications: Albuterol Sulfate [Proair Hfa] 8.5 gm IH Q4HP PRN 12/27/18 Benazepril/Hydrochlorothiazide [Benazepril-Hctz 20-12.5 mg Tab] 1 each PO DAILY 12/27/18 Budesonide/Formoterol Fumarate [Symbicort 160-4.5 Mcg Inhaler] 2 puff IH BID 03/11 Gabapentin 300 mg PO TID 12/27/18 Hydrocodone 7.5/APAP 325 [[place] 7.5/325 mg*] 1 tab PO TID 12/27/18 Mirtazapine [Remeron*] 15 mg PO BEDTIME 12/27/18 levoFLOXacin [Levaquin*] 500 mg PO DAILY #7 tab 12/28/18 predniSONE [Prednisone*] 10 mg PO BID #7 tab 12/28/18 - Past Medical/Surgical History Diabetic: No -: COPD -: HTN -: tobacco abuse -: fibromyalgia -: emphysema -: knee sx - Family History Father -: Cancer Mother Notes: pneumonia - Social History Smoking Status: Former smoker Alcohol use: No CD- Drugs: No Caffeine use: Yes Place of Residence: Home Review of Systems 10-point ROS is otherwise unremarkable Respiratory: As per HPI Physical Examination - Vital Signs Temperature: 99.2 F Blood Pressure: 143/61 Pulse: 102 Respirations: 20 Pulse Ox (%): 96 - Physical Exam Other Physical/Emotional Findings: FOR PHYSICAL EXAM FINDINGS PLEASE SEE PROGRESS NOTE DICTATED ON THE DAY OF DISCHARGE - Studies Microbiology Data (last 24 hrs): 12/27/18 11:35 Nasopharnyx Influenza Type A Antigen Screen - Final 12/27/18 11:35 Nasopharnyx Influenza Type B Antigen Screen - Final - Diagnosis (Problem(s)) (1) Bronchiectasis Onset Date: 12/28/18 Current Visit: Yes Status: Chronic Qualifiers: Bronchiectasis type: uncomplicated Qualified Code(s): J47.9 - Bronchiectasis, uncomplicated (2) HTN (hypertension) Onset Date: 12/28/18 Current Visit: Yes Status: Chronic Qualifiers: Hypertension type: essential hypertension Qualified Code(s): I10 - Essential (primary) hypertension (3) Acute and chronic respiratory failure Onset Date: 10/21/18 Current Visit: No Status: Acute Qualifiers: Respiratory failure complication: hypoxia Qualified Code(s): J96.21 - Acute and chronic respiratory failure with hypoxia (4) COPD exacerbation Onset Date: 10/21/18 Current Visit: No Status: Acute Treatment Summary: Patient is a 73-year-old male who came into the hospital with shortness of breath worse with exertion. Patient does have history of COPD. Imaging study showed severe bronchiectasis. Patient was started on antibiotics. Pulmonology was consulted. Patient did well over the course of the hospital stay. Patient used to be on home oxygen. Patient was severely dyspneic on exertion and therefore required home O2. Patient qualified for home oxygen and his saturations were below 87% with minimal exertion. Patient was then cleared for discharge from pulmonology standpoint. His symptoms improved. No signs of sepsis - Disposition Discharge Date: 12/28/18 Disposition: ROUTINE DISCHARGE Condition: FAIR Patient Discharge Instructions: f/up w PCP in 2-3 days. f/up w dietary services director Dr. Kenny in 2 weeks. Return to ER for worsening condition Diet: AHA Activity: no strenuous activity
[2018-12-28] MEDS ORDERED: LEVALBUTEROL 0.63 MG/3 ML NEB ONE (19:11)
[2018-12-28] MEDS ORDERED: ARFORMOTEROL TARTRATE 15 MCG/2 ML VIAL.NEB ONE (19:11)
[2018-12-28] MEDS ORDERED: IPRATROPIUM BROM 0.5MG/2.5ML ONE (19:11)
--- NOTE | 2018-12-28 20:50 | PN ---
Date of Progress Note: 12/28/2018 Code Status: Full code. Subjective: The patient is seen and examined. Chart reviewed and case discussed with RN and Dr. Ha parekh. The patient is doing well. However, when he gets up and moves around, he becomes significant ly dyspneic and short of breath. Family at the bedside. Treatment plan explained. All questions we re answered. Physical Examination: Vital Signs: Temperature 99.6, heart rate 82, blood pressure 114/58, respirations 20, O2 96% on 2 L via nasal cannula. GENERAL: Awake, alert, oriented x3, elderly male, frail, cachectic. CV: S1, S2. Regular rate and rhythm. Peripheral pulses present. Respiratory: Moving air well bilaterally. Minimal wheezing. No use of accessory muscles. Gastrointestinal: Abdomen is soft, nontender, nondistended. Positive bowel sounds. Extremities: No clubbing, cyanosis, or edema. Neurologic: Nonfocal. Laboratory Data: Sodium 137, potassium 4.6, chloride 99, CO2 29, BUN 21, creatinine 1.1, glucose 147 , calcium 10.2, magnesium 2.1. Albumin 3. WBC 16.8, H and H 13.1 and 40.5, platelets 573. Blood cu ltures, no growth to date. Assessment: A 73-year-old male with, 1.Acute chronic obstructive pulmonary disease exacerbation. We will continue with Curly back. Appreciate Pulmonology input, improving. 2.Dyspnea on exertion. The patient becomes significantly hypoxic and dyspneic with minimal exertion . We will check room air sats for home O2. 3.Bronchiectasis noted on CT scan, likely from scarring. 4.Essential hypertension, stable. 5.Fibromyalgia. 6.Nicotine dependence with cigarette smoking, in remission. 7.Malnutrition, albumin is 3. BMI is 15. The patient will need dietary consultation and protein case pplementation. 8.Gastrointestinal and deep vein thrombosis prophylaxis, addressed. Plan: We will try to set up for home O2, continue nebulizer treatments, Levaquin added by Pulmonolog y. The patient does have elevated white count, procalcitonin 0.06. SA/MODL Voice ID: [id number] Report ID: [id number]
== END 2018-12-28 18:57 | disposition home health service (06) ==
LOC: ER 11:07 → ERHOLD 13:22 → 4TH 14:41
PROVIDERS: ADMIT Family Medicine; ATTEND Family Medicine
DX: J44.1 Chronic obstructive pulmonary disease with (acute) exacerbation (principal); I10 Essential (primary) hypertension; J47.9 Bronchiectasis, uncomplicated; M79.7 Fibromyalgia; E46 Unspecified protein-calorie malnutrition; Z68.1 Body mass index [BMI] 19.9 or less, adult; Z87.891 Personal history of nicotine dependence; Z88.0 Allergy status to penicillin
CPT/HCPCS: 36415; 71045; 71250; 80048; 80053; 80076; 83605; 83735 ×2; 83880; 84145; 84484; 85025 ×2; 85610; 87040 ×2; 87804 ×2; 93005; 94640 ×2; 96374; 96375; 99285; G0378 ×2; J0360; J2930; J3475; J7605; J1650; J7512

== ENCOUNTER 2019-05-28 11:51 | Inpatient (IN) | payer OTHER, MEDICARE ==
[2019-05-28] MEDS ORDERED: AZITHROMYCIN 500 MG/250 ML BAG IV SCH (13:00)
--- NOTE | 2019-05-28 13:10 | RAD REPORT ---
EXAM DESCRIPTION: RAD - Chest Single View - 05/28/2019 12:57 pm CLINICAL HISTORY: COPD Chest pain. COMPARISON: Chest Single View dated 12/27/2018; Chest Pa And Lat (2 Views) dated 10/22/2018; Chest Pa And Lat (2 Views) dated 10/21/2018; Chest Single View dated 10/20/2018 FINDINGS: Portable technique limits examination quality. Advanced COPD pattern is seen. Irregular scarring is noted in the lateral left mid lung, similar prio r study. Right parahilar scarring also suspected. The heart is normal in size. No displaced fractures . IMPRESSION: Advanced COPD is present.
[2019-05-28] MEDS ORDERED: CEFTRIAXONE/SWI 1gm 1 GM/10 ML SYR ONE (13:12)
[2019-05-28] MEDS ORDERED: IPRATROPIUM BROM 0.5MG/2.5ML ONE (13:12)
[2019-05-28] MEDS ORDERED: METHYLPREDNISOLONE 125 MG INJ ONE (13:12)
[2019-05-28] MEDS ORDERED: LEVALBUTEROL 1.25 MG/3 ML NEB ONE (13:12)
[2019-05-28 13:34] LABS: Absolute Lymphocytes (CBC) 4.5 K/uL (0.7-4.9); Basophils % 0.5 % (0-1.3); Eosinophils % 0.1 % (0-4.4); Hematocrit 45.4 % (39.6-49.0); Lymphocytes % 19.4 % (15.3-44.8); Monocytes % 6.6 % (3.3-12.3); RBC Red Blood Cell Count 4.74 M/uL (4.33-5.43)
--- NOTE | 2019-05-28 13:37 | ER ---
Nurse's Notes [facility] Name: Jason Anand Sr Age: 73 yrs Sex: Male : 1945 Arrival Date: 05/28/2019 Time: 11:54 Bed 8 Private MD: Jadon Du Diagnosis: Chest pain, unspecified;Chronic obstructive pulmonary disease, unspecified Presentation: 05/28 12:03 Presenting complaint: Patient states: SOB x3 DAYS. Transition of care: patient was not bp received from another setting of care. Onset of symptoms is unknown. Risk Assessment: Do you want to hurt yourself or someone else? Patient reports no desire to harm self or others. Initial Sepsis Screen: Does the patient meet any 2 criteria? No. Patient's initial sepsis screen is negative. Does the patient have a suspected source of infection? No. Patient's initial sepsis screen is negative. Care prior to arrival: None. 12:03 Method Of Arrival: Wheelchair bp 12:03 Acuity: CARLOS 3 bp Triage Assessment: 12:04 General: Appears in no apparent distress. comfortable, slender, Behavior is bp cooperative, appropriate for age, anxious. Pain: Denies pain. EENT: No deficits noted. Neuro: No deficits noted. Cardiovascular: Rhythm is sinus rhythm. Respiratory: Reports shortness of breath Onset: The symptoms/episode began/occurred 3 DAYS AGO, the patient has mild shortness of breath. GI: No signs and/or symptoms were reported involving the gastrointestinal system. : No signs and/or symptoms were reported regarding the genitourinary system. Derm: No deficits noted. Musculoskeletal: No deficits noted. Historical: - Allergies: 12:04 PENICILLINS; bp - PMHx: 12:04 COPD; Hypertension; Fibromyalgia; bp - Immunization history:: Adult Immunizations up to date. - Social history:: Smoking status: Patient uses tobacco products, smokes one pack cigarettes per day. Patient/guardian denies using alcohol, street drugs, The patient lives with family. - Ebola Screening: : No symptoms or risks identified at this time. - Family history:: not pertinent. - Hospitalizations: : No recent hospitalization is reported. The patient was recently seen at [facility]. Screenin:10 Abuse screen: Denies threats or abuse. Denies injuries from another. Nutritional ph screening: No deficits noted. Tuberculosis screening: No symptoms or risk factors identified. Fall Risk Fall in past 12 months (25 points). No secondary diagnosis (0 pts). IV access (20 points). Ambulatory Aid- None/Bed Rest/Nurse Assist (0 pts). Gait- Weak (10 pts.). Mental Status- Oriented to own ability (0 pts). Total Price Fall Scale indicates High Risk Score (45 or more points). Fall prevention measures have been instituted. Side Rails Up X 2 Placed Close to Nursing Station Frequent Obs/Assessments Occuring Family Present and informed to notify staff if the need to leave the bedside As available patient and family educated on Fall Prevention Program and Strategies. Assessment: 12:45 General: Appears in no apparent distress. uncomfortable, slender, Behavior is calm, ph cooperative, appropriate for age. Pain: Denies pain. Neuro: Level of Consciousness is awake, alert, obeys commands, Oriented to person, place, time, situation. Cardiovascular: Reports fatigue, shortness of breath, Denies chest pain, Rhythm is regular. Respiratory: Reports shortness of breath at rest cough that is productive, Airway is patent Respiratory effort is even, unlabored, Respiratory pattern is regular, symmetrical, Breath sounds are diminished bilaterally. GI: No signs and/or symptoms were reported involving the gastrointestinal system. Derm: Skin is intact, Skin is pale. Musculoskeletal: Circulation, motion, and sensation intact. Range of motion: intact in all extremities. 14:00 Reassessment: Patient appears in no apparent distress at this time. Patient and/or ph family updated on plan of care and expected duration. Pain level reassessed. Patient is alert, oriented x 3, equal unlabored respirations, skin warm/dry/pink. Pt resting quietly, Dr Georges at bedside. 15:05 Reassessment: Patient appears in no apparent distress at this time. Patient and/or ph family updated on plan of care and expected duration. Pain level reassessed. Patient is alert, oriented x 3, equal unlabored respirations, skin warm/dry/pink. Pt resting quietly, VSS, awaiting room assignment. 16:00 Reassessment: Patient appears in no apparent distress at this time. Patient and/or ph family updated on plan of care and expected duration. Pain level reassessed. Patient is alert, oriented x 3, equal unlabored respirations, skin warm/dry/pink. 17:00 Reassessment: Patient appears in no apparent distress at this time. Patient and/or ph family updated on plan of care and expected duration. Pain level reassessed. Patient is alert, oriented x 3, equal unlabored respirations, skin warm/dry/pink. Report called to Geovanna LUNA on 4th floor. Vital Signs: 12:04 BP 141 / 73; Pulse 91; Resp 19; Temp 98.1; Pulse Ox 95% on R/A; Weight 58.97 kg; Height bp 5 ft. 11 in. (180.34 cm); 13:00 BP 139 / 82; Pulse 94; Resp 18; Pulse Ox 99% on Nebulizer Mask; ph 14:00 BP 142 / 76; Pulse 84; Resp 22; Pulse Ox 96% on 3 lpm NC; ph 15:05 BP 147 / 79; Pulse 87; Resp 20; Pulse Ox 96% on 3 lpm NC; ph 16:33 BP 112 / 60; Pulse 68; Resp 18; Temp 97.8; Pulse Ox 96% on 3 lpm NC; ph 12:04 Body Mass Index 18.13 (58.97 kg, 180.34 cm) bp Vitals: 15:05 Cardiac Rhythm Assessment Regular. ph ED Course: 11:54 Patient arrived in ED. mr 11:55 Jadon Du DO is Private Physician. mr 11:58 Darron Navarro, JEREMY is Primary Nurse. bp 11:59 Rajwinder Wang MD is Attending Physician. ma2 12:03 Triage completed. bp 12:14 Arm band placed on. bp 12:23 EKG done, by ED staff, reviewed by Rajwinder Wang MD. jb1 12:55 XRAY CXR (1 view) In Process Unspecified. EDMS 13:00 Patient has correct armband on for positive identification. Placed in gown. Bed in low ph position. Call light in reach. Side rails up X2. teletypesetter monitor on. Pulse ox on. NIBP on. Door closed. Noise minimized. Lights dimmed. Warm blanket given. Pillow given. 13:36 Raul Franklin MD is Hospitalizing Provider. ma2 14:[address] via stretcher. em2 14:00 Inserted saline lock: 20 gauge in right forearm, using aseptic technique. ph 14:01 CT completed. Patient tolerated procedure well. Patient moved back from CT. em2 14:01 CT Head Brain wo Cont In Process Unspecified. EDMS 16:33 No provider procedures requiring assistance completed. Patient admitted, IV remains in ph place. Administered Medications: 13:22 Drug: Xopenex 1.25 mg Route: Inhalation; ph 15:09 Follow up: Response: No adverse reaction ph 13:22 Drug: SOLU-Medrol 125 mg Route: IVP; Site: right antecubital; ph 15:09 Follow up: Response: No adverse reaction ph 13:23 Drug: AtroVENT Aerosol 0.5 mg Route: Inhalation; ph 13:40 Drug: Rocephin 1 grams Route: IV; Rate: calculated rate; Site: right forearm; ph 13:50 Follow up: Response: No adverse reaction; IV Status: Completed infusion ph 13:43 Drug: AtroVENT Aerosol 0.5 mg Route: Inhalation; ph 13:55 Drug: AZITHromycin 500 mg Route: IVPB; Infused Over: 1 hrs; Site: right forearm; ph 15:10 Follow up: Response: No adverse reaction; IV Status: Completed infusion ph 14:05 Drug: AtroVENT Aerosol 0.5 mg Route: Inhalation; ph 15:09 Follow up: Response: No adverse reaction ph 15:57 Drug: NS 0.9% 1000 ml Route: IV; Rate: 1000 ml; Site: right forearm; ph 17:00 Follow up: Response: No adverse reaction; IV Status: Completed infusion ph Outcome: 13:36 Decision to Hospitalize by Provider. ma2 16:34 Admitted to Tele accompanied by tech, family with patient, via stretcher, room 428, ph with oxygen, with chart, Report called to Geovanna 16:34 Condition: stable 17:11 Patient left the ED. ph Signatures: Dispatcher [employer] EDMS Edward Rosenberg jb1 Trinidad Lugo mr Joce, David em2 Silvia Clark RN RN ph Darron Navarro RN RN bp Alzahri, Mohammad, MD MD ms2
--- NOTE | 2019-05-28 13:37 | EDPHYS ---
Physician Documentation [facility] Name: Jason Anand Sr Age: 73 yrs Sex: Male : 1945 Arrival Date: 05/28/2019 Time: 11:54 Bed 8 Private MD: Jadon Du ED Physician Rajwinder Wang HPI: 05/28 12:25 This 73 yrs old Male presents to ER via Wheelchair with complaints of ma2 Breathing Difficulty. 12:25 The patient has shortness of breath with light activity. Onset: The symptoms/episode ma2 began/occurred gradually, 1 week(s) ago. Associated signs and symptoms: Pertinent positives: productive cough, Pertinent negatives: dizziness, loss of consciousness, numbness in extremities. Severity of symptoms: At their worst the symptoms were moderate in the emergency department the symptoms are unchanged. The patient has experienced similar episodes in the past. Historical: - Allergies: 12:04 PENICILLINS; bp - PMHx: 12:04 COPD; Hypertension; Fibromyalgia; bp - Immunization history:: Adult Immunizations up to date. - Social history:: Smoking status: Patient uses tobacco products, smokes one pack cigarettes per day. Patient/guardian denies using alcohol, street drugs, The patient lives with family. - Ebola Screening: : No symptoms or risks identified at this time. - Family history:: not pertinent. - Hospitalizations: : No recent hospitalization is reported. The patient was recently seen at [facility]. ROS: 12:25 Constitutional: Negative for fever, chills, and weight loss. ma2 12:25 All other systems are negative. Exam: 12:25 Constitutional: This is a well developed, well nourished patient who is awake, alert, ma2 and in no acute distress. Chest/axilla: Normal chest wall appearance and motion. Nontender with no deformity. No lesions are appreciated. Cardiovascular: Regular rate and rhythm with a normal S1 and S2. No gallops, murmurs, or rubs. Normal PMI, no JVD. No pulse deficits. Abdomen/GI: Soft, non-tender, with normal bowel sounds. No distension or tympany. No guarding or rebound. No evidence of tenderness throughout. 12:25 Respiratory: moderate respiratory distress is noted, Breath sounds: rhonchi, wheezing: Respiratory rate: 25 Vital Signs: 12:04 BP 141 / 73; Pulse 91; Resp 19; Temp 98.1; Pulse Ox 95% on R/A; Weight 58.97 kg; Height bp 5 ft. 11 in. (180.34 cm); 13:00 BP 139 / 82; Pulse 94; Resp 18; Pulse Ox 99% on Nebulizer Mask; ph 14:00 BP 142 / 76; Pulse 84; Resp 22; Pulse Ox 96% on 3 lpm NC; ph 15:05 BP 147 / 79; Pulse 87; Resp 20; Pulse Ox 96% on 3 lpm NC; ph 16:33 BP 112 / 60; Pulse 68; Resp 18; Temp 97.8; Pulse Ox 96% on 3 lpm NC; ph 12:04 Body Mass Index 18.13 (58.97 kg, 180.34 cm) bp MDM: 11:59 Patient medically screened. ma2 12:25 Differential diagnosis: Anxiety Reaction asthma, Bronchitis reactive airway disease, ma2 Unstable Angina. Antibiotic administration: The patient is discharged and will get outpatient antibiotics. Data reviewed: vital signs, nurses notes. 13:34 Counseling: I had a detailed discussion with the patient and/or guardian regarding: the [facility] historical points, exam findings, and any diagnostic results supporting the discharge/admit diagnosis, the presence of at least one elevated blood pressure reading (>120/80) during this emergency department visit, the need for outpatient follow up. ED course: patient states has been having chest pain for the last 2 days on off will admit for chest pain acs rule out . ED course: discussed with dr. franklin . 05/28 12:23 Order name: Blood Culture Adult (2) [facility] 05/28 12:23 Order name: BMP [facility] 05/28 12:23 Order name: CBC with Diff ak2 05/28 12:23 Order name: Ckmb [facility] 05/28 12:23 Order name: CPK [facility] 05/28 12:23 Order name: D-Dimer; Complete Time: 13:43 [facility] 05/28 12:23 Order name: Hepatic Function; Complete Time: 14:48 ak2 05/28 12:23 Order name: Lipase; Complete Time: 14:48 [facility] 05/28 12:23 Order name: Magnesium; Complete Time: 14:48 [facility] 05/28 12:23 Order name: NT PRO-BNP; Complete Time: 14:48 ma2 05/28 12:23 Order name: PT-INR; Complete Time: 13:43 ma2 05/28 12:23 Order name: Ptt, Activated; Complete Time: 13:43 ma2 05/28 12:23 Order name: Troponin (emerg Dept Use Only); Complete Time: 14:48 ma2 05/28 12:25 Order name: Blood Culture EDFL 05/28 12:23 Order name: XRAY CXR (1 view); Complete Time: 13:11 ma2 05/28 12:25 Order name: Basic Metabolic Panel; Complete Time: 14:48 EDMS 05/28 12:25 Order name: CBC with Automated Diff; Complete Time: 14:48 EDMS 05/28 12:25 Order name: CKMB Creatine Kinase MB; Complete Time: 14:48 EDMS 05/28 12:25 Order name: Creatine Phosphokinase; Complete Time: 14:48 EDMS 05/28 13:28 Order name: ABG ak2 05/28 13:28 Order name: CT Head Brain wo Cont; Complete Time: 14:48 ma2 05/28 13:44 Order name: Manual Differential; Complete Time: 14:48 EDMS 05/28 13:55 Order name: Sputum Culture EDFL 05/28 13:56 Order name: Troponin I EDFL 05/28 13:56 Order name: Troponin I EDFL 05/28 12:23 Order name: EKG; Complete Time: 12:26 ma2 05/28 12:23 Order name: Cardiac monitoring; Complete Time: 12:43 ma2 05/28 12:23 Order name: EKG - Nurse/Tech; Complete Time: 12:43 ma2 05/28 12:23 Order name: IV Saline Lock; Complete Time: 13:24 ma2 05/28 12:23 Order name: Labs collected and sent; Complete Time: 12:43 ma2 05/28 12:23 Order name: O2 Per Protocol; Complete Time: 12:42 ma2 05/28 12:23 Order name: O2 Sat Monitoring; Complete Time: 12:41 ma2 05/28 13:56 Order name: Regular EDFL 05/28 13:56 Order name: EKG Electrocardiogram EDFL Administered Medications: 13:22 Drug: Xopenex 1.25 mg Route: Inhalation; ph 15:09 Follow up: Response: No adverse reaction ph 13:22 Drug: SOLU-Medrol 125 mg Route: IVP; Site: right antecubital; ph 15:09 Follow up: Response: No adverse reaction ph 13:23 Drug: AtroVENT Aerosol 0.5 mg Route: Inhalation; ph 13:40 Drug: Rocephin 1 grams Route: IV; Rate: calculated rate; Site: right forearm; ph 13:50 Follow up: Response: No adverse reaction; IV Status: Completed infusion ph 13:43 Drug: AtroVENT Aerosol 0.5 mg Route: Inhalation; ph 13:55 Drug: AZITHromycin 500 mg Route: IVPB; Infused Over: 1 hrs; Site: right forearm; ph 15:10 Follow up: Response: No adverse reaction; IV Status: Completed infusion ph 14:05 Drug: AtroVENT Aerosol 0.5 mg Route: Inhalation; ph 15:09 Follow up: Response: No adverse reaction ph 15:57 Drug: NS 0.9% 1000 ml Route: IV; Rate: 1000 ml; Site: right forearm; ph 17:00 Follow up: Response: No adverse reaction; IV Status: Completed infusion ph Disposition: 05/28/19 13:36 Hospitalization ordered by Raul Franklin for Observation. Preliminary diagnosis are Chest pain, unspecified, Chronic obstructive pulmonary disease, unspecified. - Bed requested for Telemetry/MedSurg (observation). - Status is Observation. ph - Condition is Stable. - Problem is an acute exacerbation. - Symptoms have worsened. UTI on Admission? No Signatures: Dispatcher [employer] [facility] Vivienne Bradshaw RN RN Silvia Clark RN RN Darron Navarro RN RN bp Alzahri, Mohammad, MD MD ma2 Botello, Elizabeth eb Corrections: (The following items were deleted from the chart) 13:36 13:36 Hospitalization Ordered by Raul Franklin MD for Observation. Preliminary shaji diagnosis is Chest pain, unspecified; Chronic obstructive pulmonary disease, unspecified. Bed requested for Telemetry/MedSurg (observation). Status is Observation. Condition is Stable. Problem is an acute exacerbation. Symptoms have worsened. UTI on Admission? No. ma2 15:19 13:36 05/28/2019 13:36 Hospitalization Ordered by Raul Franklin MD for Observation. eb Preliminary diagnosis is Chest pain, unspecified; Chronic obstructive pulmonary disease, unspecified. Bed requested for Telemetry/MedSurg (observation). Status is Observation. Condition is Stable. Problem is an acute exacerbation. Symptoms have worsened. UTI on Admission? No. ma2 15:19 15:19 05/28/2019 13:36 Hospitalization Ordered by Raul Franklin MD for Observation. dw Preliminary diagnosis is Chest pain, unspecified; Chronic obstructive pulmonary disease, unspecified. Bed requested for Telemetry/MedSurg (observation). Status is Observation. Condition is Stable. Problem is an acute exacerbation. Symptoms have worsened. UTI on Admission? No. eb 17:11 15:19 05/28/2019 13:36 Hospitalization Ordered by Raul Franklin MD for Observation. ph Preliminary diagnosis is Chest pain, unspecified; Chronic obstructive pulmonary disease, unspecified. Bed requested for Telemetry/MedSurg (observation). Status is Observation. Condition is Stable. Problem is an acute exacerbation. Symptoms have worsened. UTI on Admission? No. dw
[2019-05-28 13:39] LABS: Protime INR 1.04
[2019-05-28] MEDS ORDERED: ONDANSETRON 4 MG/2 ML VIAL IV PRN (13:48)
[2019-05-28] MEDS ORDERED: ACETAMINOPHEN 500 MG TAB PO PRN (13:48)
[2019-05-28] MEDS: ARFORMOTEROL TARTRATE 15 MCG/2 ML VIAL.NEB NEB SCH ×2 (13:48→20:35)
[2019-05-28 13:56] LABS: ALT/SGPT 17 U/L (12-78); AST/SGOT 25 U/L (15-37); Albumin 3.7 g/dL (3.4-5.0); Alkaline Phosphatase 69 U/L (45-117); BUN Blood Urea Nitrogen 23 mg/dL (7-18); Bicarbonate 28 mmol/L (21-32); Bilirubin Direct 0.1 mg/dL (0-0.2); Bilirubin Total 1.1 mg/dL (0.2-1.0); CKMB Creatine Kinase MB 1.6 ng/mL (0.3-3.6); Creatine Phosphokinase 52 U/L (39-308); Glucose Level 105 mg/dL (74-106); Lipase 62 U/L (73-393); Magnesium 2.4 mg/dL (1.8-2.4); NT PRO-BNP 326 pg/mL (<450); Potassium 4.4 mmol/L (3.5-5.1); Protein, Total 7.8 g/dL (6.4-8.2); Sodium Level 137 mmol/L (136-145); Troponin (Emerg Dept Use Only) < 0.02 ng/mL (0.0-0.045)
[2019-05-28] MEDS: IPRATROPIUM BROM 0.5MG/2.5ML NEB SCH ×2 (14:00→20:35)
[2019-05-28 14:09] LABS: Platelet Estimate ADEQ
[2019-05-28 14:10] LABS: Blood Morphology Comment NOTED (NOT SEEN); Stomatocytes 1+
--- NOTE | 2019-05-28 14:12 | RAD REPORT ---
EXAM DESCRIPTION: CT - Head Brain Wo Cont - 05/28/2019 2:01 pm CLINICAL HISTORY: CONFUSED Headache, drowsiness COMPARISON: <Comparisons> TECHNIQUE: All CT scans are performed using dose optimization technique as appropriate and may inclu de automated exposure control or mA/KV adjustment according to patient size. FINDINGS: No intracranial hemorrhage, hydrocephalus or extra-axial fluid collection.No areas of brai n edema or evidence of midline shift. The paranasal sinuses and mastoids are clear. The calvarium is intact. IMPRESSION: No acute intracranial abnormality.
--- NOTE | 2019-05-28 14:12 | P.HP ---
Certification for Inpatient With expected LOS: <2 Midnights Patient will require the following post-hospital care: None Practitioner: I am a practitioner with admitting privileges, knowledge of patient current condition, hospital course, and medical plan of care. Services: Services provided to patient in accordance with Admission requirements found in Title 42 Section 412.3 of the Code of Federal Regulations Patient History Date of Service: 05/28/19 (Hospitalist) Reason for admission: Shortness of breath History of Present Illness: Patient is 73 years of age well known to me with a history of terminal COPD with frequent exacerbation an underlying depression admitted with worsening dyspnea for the past 2 weeks cough congestion admitted to the hospital with also altered mental status as 1 episode of chest pain that was quite some time ago he has been having some productive cough feeling a little better Allergies Penicillins Allergy (Verified 10/20/18 21:00) Itching/Hives/Rash Home Medications: Albuterol Sulfate [Proair Hfa] 8.5 gm IH Q4HP PRN 12/27/18 Benazepril/Hydrochlorothiazide [Benazepril-Hctz 20-12.5 mg Tab] 1 each PO DAILY 12/27/18 Budesonide/Formoterol Fumarate [Symbicort 160-4.5 Mcg Inhaler] 2 puff IH BID 03/11 Gabapentin 300 mg PO TID 12/27/18 Hydrocodone 7.5/APAP 325 [[place] 7.5/325 mg*] 1 tab PO TID 12/27/18 Mirtazapine [Remeron*] 15 mg PO BEDTIME 12/27/18 levoFLOXacin [Levaquin*] 500 mg PO DAILY #7 tab 12/28/18 predniSONE [Prednisone*] 10 mg PO BID #7 tab 12/28/18 - Past Medical/Surgical History Diabetic: No -: COPD -: HTN -: tobacco abuse -: fibromyalgia -: knee sx - Family History Father -: Cancer Mother Notes: pneumonia - Social History Alcohol use: No CD- Drugs: No Caffeine use: Yes Review of Systems 10-point ROS is otherwise unremarkable General: Weakness Respiratory: Cough, Shortness of Breath Physical Examination - Vital Signs Temperature: 98.1 F Blood Pressure: 141/73 Pulse: 91 Respirations: 19 Pulse Ox (%): 95 - Physical Exam General: Alert, Oriented x3, Mild distress HEENT: Atraumatic Neck: Supple Respiratory: Expiratory wheezes Cardiovascular: No edema, Normal S1 S2 Gastrointestinal: Normal bowel sounds, Soft and benign Musculoskeletal: No clubbing, No swelling Integumentary: No rashes, No breakdown - Studies Laboratory Data (last 24 hrs) 05/28/19 13:10: PT 12.3, INR 1.04, APTT 33.5 05/28/19 13:10: WBC 23.3 H*, Hgb 15.0, Hct 45.4, Plt Count 302 05/28/19 13:10: Sodium 137, Potassium 4.4, BUN 23 H, Creatinine 1.18, Glucose 105, Magnesium 2.4, Total Bilirubin 1.1 H, AST 25, ALT 17, Alkaline Phosphatase 69, Lipase 62 L Assessment and Plan - Problems (Diagnosis) (1) COPD exacerbation Onset Date: 10/21/18 Current Visit: No Status: Acute Plan: Patient is 73 years of age with terminal COPD admitted with worsening shortness of breath for the past week in addition to cough congestion altered mental status chest x-ray shows COPD changes [place] [id number] hemoglobin normal plan to admit him for observation with steroids antibiotics blood culture is overall prognosis is very poor he has been steadily declining also has significant depression - Advance Directives Does patient have a Living Will: No Does patient have a Durable POA for Healthcare: No
[2019-05-28 15:58] LABS: Arterial Blood Carboxyhemoglob 2.3 % (0-1.5); Blood Gas Oxyhemoglobin 94.2 % (94-97)
[2019-05-28] MEDS ORDERED: NA CHLORIDE 0.9% 1,000 ML ONE (16:08)
[2019-05-28] MEDS: METHYLPREDNISOLONE 40 MG INJ IV SCH (16:53)
[2019-05-28] MEDS: D5 0.45 NS 1,000 ML IV SCH (16:53)
[2019-05-28] MEDS: ENOXAPARIN 40 MG/0.4 ML SQ SCH (16:53)
[2019-05-28] MEDS: GABAPENTIN 300 MG CAP PO SCH ×2 (16:53→22:08)
[2019-05-28 17:55] LABS: Urine Appearance CLEAR; Urine Bilirubin NEGATIVE (NEG); Urine Blood 2+ (NEG); Urine Color YELLOW; Urine Glucose NEGATIVE (NEG); Urine Protein NEGATIVE (NEG); Urine Urobilinogen 0.2 mg/dL (0.2-1.0)
[2019-05-28 18:23] LABS: Urine Bacteria <20 /HPF (NONE SEEN); Urine Culture Reflex Order NOT NEEDED
[2019-05-28] MEDS ORDERED: CEFEPIME 1 GM/VIAL IV SCH (21:00)
[2019-05-28] MEDS: CEFEPIME/SWI 1gm 10 ML IV SCH (21:00)
[2019-05-28] MEDS: MIRTAZAPINE 15 MG TAB PO SCH (22:08)
[2019-05-29] MEDS: D5 0.45 NS 1,000 ML IV SCH ×2 (01:12→18:08)
[2019-05-29] MEDS: METHYLPREDNISOLONE 40 MG INJ IV SCH ×3 (01:12→18:09)
[2019-05-29] MEDS: IPRATROPIUM BROM 0.5MG/2.5ML NEB SCH ×4 (02:00→20:20)
[2019-05-29] MEDS: ALBUTEROL 2.5 MG/3 ML NEB SOL NEB PRN (02:06)
[2019-05-29 06:53] LABS: Absolute Lymphocytes (CBC) 5.5 K/uL (0.7-4.9); Basophils % 0.2 % (0-1.3); Hematocrit 45.1 % (39.6-49.0); Lymphocytes % 23.5 % (15.3-44.8); MPV 7.9 fL (7.6-11.3); Monocytes % 2.2 % (3.3-12.3); RBC Red Blood Cell Count 4.71 M/uL (4.33-5.43)
[2019-05-29 07:07] LABS: Potassium 3.8 mmol/L (3.5-5.1)
--- NOTE | 2019-05-29 07:43 | RAD REPORT ---
EXAM DESCRIPTION: RAD - Chest Single View - 05/29/2019 7:03 am CLINICAL HISTORY: Chest pain, COPD COMPARISON: Portable chest May 28, CT chest December 27 TECHNIQUE: AP portable chest image was obtained 0644 hours . FINDINGS: Patient has very advanced COPD change. Baseline pattern is not significantly different. Fo alex more prominent interstitial and patchy alveolar opacities in the left midlung field are similar to the prior study. This could be asymmetric scarring or possible mild pneumonia. No large mass or c onsolidation seen. No tracheal shift. Heart and vasculature are normal. No measurable pleural effusio n and no pneumothorax. No acute bony abnormality seen. No acute aortic findings suspected. IMPRESSION: Focal left mid lung field opacities are similar to the prior study and may represent asy mmetric scarring or mild pneumonia. Significant baseline COPD.
[2019-05-29] MEDS: ASPIRIN EC 81 MG TAB PO SCH (08:22)
[2019-05-29] MEDS: GABAPENTIN 300 MG CAP PO SCH ×3 (08:22→22:03)
[2019-05-29] MEDS: CEFEPIME/SWI 1gm 10 ML IV SCH ×2 (08:24→22:04)
[2019-05-29] MEDS: ARFORMOTEROL TARTRATE 15 MCG/2 ML VIAL.NEB NEB SCH ×2 (08:35→20:20)
--- NOTE | 2019-05-29 08:45 | EKG ---
Test Date: 2019-05-28 Test Time: 12:09:24 Charging Manipulator: RAMÍREZ MEASUREMENT RESULTS: Intervals: Rate: 82 AL: 136 QRSD: 82 QT: 352 QTc: 411 [place]: P: 89 AL: 136 QRS: 87 T: 84 INTERPRETIVE STATEMENTS: Sinus rhythm with marked sinus arrhythmia Right atrial enlargement Borderline ECG Compared to ECG 11/26/2018 11:19:25 No significant changes Electronically Signed On 05-29-19 08:42:33 CDT by Lance Rader
[2019-05-29] MEDS: ENOXAPARIN 40 MG/0.4 ML SQ SCH (17:00)
[2019-05-29] MEDS: MIRTAZAPINE 15 MG TAB PO SCH (22:03)
[2019-05-29] MEDS ORDERED: HYDRALAZINE HCL 20 MG/ML VIAL IV PRN (22:31)
[2019-05-30] MEDS: METHYLPREDNISOLONE 40 MG INJ IV SCH ×2 (00:15→09:32)
[2019-05-30] MEDS: ALBUTEROL 2.5 MG/3 ML NEB SOL NEB PRN (00:20)
[2019-05-30] MEDS: IPRATROPIUM BROM 0.5MG/2.5ML NEB SCH ×4 (00:20→12:00)
[2019-05-30] MEDS: D5 0.45 NS 1,000 ML IV SCH ×2 (07:33→21:08)
[2019-05-30] MEDS: ARFORMOTEROL TARTRATE 15 MCG/2 ML VIAL.NEB NEB SCH ×2 (08:00→20:00)
[2019-05-30] MEDS: GABAPENTIN 300 MG CAP PO SCH ×3 (09:31→21:07)
[2019-05-30] MEDS: ASPIRIN EC 81 MG TAB PO SCH (09:31)
[2019-05-30] MEDS: CEFEPIME/SWI 1gm 10 ML IV SCH ×2 (09:31→21:07)
[2019-05-30] MEDS: HYDROCODONE/APAP 7.5/325 MG TAB PO SCH ×2 (12:06→21:07)
--- NOTE | 2019-05-30 12:06 | P.PN ---
Subjective Date of Service: 05/30/19 (Hospitalists) Chief Complaint: COPD exacerbation Subjective: Improving (Patient is improving condition stable cough congestion as also improved cultures pending) Review of Systems General: Weakness Respiratory: Cough, Shortness of Breath Physical Examination - Vital Signs Temperature: 97.2 F Blood Pressure: 181/82 Pulse: 84 Respirations: 17 Pulse Ox (%): 100 - Physical Exam General: Alert, Oriented x3 Respiratory: Clear to auscultation bilaterally, Diminished Cardiovascular: No edema, Regular rate/rhythm Assessment & Plan - Problems (Diagnosis) (1) COPD exacerbation Onset Date: 10/21/18 Current Visit: No Status: Acute Plan: Patient admitted with COPD exacerbation is improving blood pressure elevated will need to restart his home medications continue with bronchodilators on [place] CBC sputum shows gram-negative rods other Haemophilus or Pseudomonas will wait for sensitivities and cultures Discharge Plan: Home Plan to discharge in: 48 Hours
[2019-05-30] MEDS ORDERED: IPRATROPIUM BROM 0.5MG/2.5ML NEB PRN (12:08)
--- NOTE | 2019-05-30 12:09 | P.PN ---
Subjective Date of Service: 05/30/19 Chief Complaint: COPD exacerbation Subjective: Improving (Patient is doing much better he is has not felt that good for a number of years sputum sensitivity pending) Review of Systems General: Weakness Respiratory: Shortness of Breath Physical Examination - Vital Signs Temperature: 97.2 F Blood Pressure: 181/82 Pulse: 84 Respirations: 17 Pulse Ox (%): 100 - Physical Exam General: Alert, Oriented x3 Neck: Supple Respiratory: Diminished, Expiratory wheezes Cardiovascular: No edema, Regular rate/rhythm Assessment & Plan - Problems (Diagnosis) (1) COPD exacerbation Onset Date: 10/21/18 Current Visit: No Status: Acute Plan: Admitted with COPD exacerbation labs pending change to p.o. prednisone await sensitivities
[2019-05-30] MEDS: hydroCHLOROthiazide 12.5 MG CAP PO SCH (12:23)
[2019-05-30] MEDS: BENAZEPRIL 20 MG TAB PO SCH (12:23)
[2019-05-30 12:35] LABS: Hematocrit 45.7 % (39.6-49.0); MPV 7.7 fL (7.6-11.3); RBC Red Blood Cell Count 4.76 M/uL (4.33-5.43)
[2019-05-30] MEDS: ENOXAPARIN 40 MG/0.4 ML SQ SCH (17:00)
[2019-05-30] MEDS: MIRTAZAPINE 15 MG TAB PO SCH (21:07)
[2019-05-30] MEDS: predniSONE 20 MG TAB PO SCH (21:07)
--- NOTE | 2019-05-30 21:35 | PN ---
Date of Progress Note: 05/30/2019 Subjective: The patient is seen and examined, chart reviewed, and case discussed with RN and Dr. Ha parekh. The patient apparently had been taking [place] from his own supply without informing the nurses . He was caught by one of the night nurses. The patient admitted to sneaking the [place]. I explaine d to him that he is not allowed to take medications on his own because there will be no documentation of the medicine and may cause interactions with other medicines including causing respiratory distre ss. The patient does see Pain Management. Medications: List reviewed. Code Status: Full. Physical Examination: Vital Signs: Temperature 97.2, heart rate 84, blood pressure 181/82, respirations 17, O2 100% on 3 L via nasal cannula. General: Awake, alert, oriented x3. Elderly male who appears older than stated age, frail. CV: S1, S2. Regular rate and rhythm. Peripheral pulses weak. Respiratory: Diminished breath sounds, wheezing heard. No use of accessory muscles. Gastrointestinal: Abdomen is soft, nontender, nondistended. Positive bowel sounds. Extremities: No clubbing, cyanosis, or edema. Neuro: Cranial nerves 2 through 12 intact grossly. No focal neurological deficits. Skin: No rashes. Normal skin turgor. Laboratory Data: WBC 29.1, H and H 14.7 and 45.7, platelets 385. Cultures, no growth to date. Sput um culture preliminary results showing 2+ gram-negative rods. Assessment And Plan: A 73-year-old male with: 1.Acute chronic obstructive pulmonary disease exacerbation. Continue with nebulizer treatments. St eroids have been switched to p.o. The patient still having shortness of breath. Still has elevated white count. Sputum culture is positive for gram-negative rods. 2.Likely pseudomonas infection, gram-negative pneumonia. We will continue with cefepime. Follow up on blood culture results and final sputum culture results. 3.Chronic pain syndrome. The patient takes [place] at home. Currently has been taking medications on his own without telling staff. He was counseled. He voiced understanding. 4.Essential hypertension, stable. Resume diuretic. 5.Nicotine dependence with cigarette smoking continuous. The patient has been counseled. 6.Fibromyalgia. Continue gabapentin. 7.Leukocytosis. WBC count elevated to 29. We will check lactate level, may be related to gram-nega tive pneumonia versus acute phase reactant or steroid-induced leukocytosis. We will send out periphe ral blood smear to rule out leukemoid reaction. 8.Deep vein thrombosis prophylaxis, Lovenox. /SENA Voice ID: [id number] Report ID: [id number]
[2019-05-31 04:37] LABS: Basophils % 0.2 % (0-1.3); Hematocrit 41.8 % (39.6-49.0); Lymphocytes % 17.9 % (15.3-44.8); MPV 7.9 fL (7.6-11.3); Monocytes % 5.1 % (3.3-12.3); RBC Red Blood Cell Count 4.33 M/uL (4.33-5.43)
[2019-05-31 04:48] LABS: Potassium 4.5 mmol/L (3.5-5.1)
[2019-05-31] MEDS: D5 0.45 NS 1,000 ML IV SCH ×2 (05:13→08:40)
[2019-05-31] MEDS: ARFORMOTEROL TARTRATE 15 MCG/2 ML VIAL.NEB NEB SCH (08:00)
[2019-05-31] MEDS: ALBUTEROL 2.5 MG/3 ML NEB SOL NEB PRN (08:00)
[2019-05-31] MEDS: predniSONE 20 MG TAB PO SCH (08:21)
[2019-05-31] MEDS: GABAPENTIN 300 MG CAP PO SCH ×2 (08:21→13:14)
[2019-05-31] MEDS: ASPIRIN EC 81 MG TAB PO SCH (08:21)
[2019-05-31] MEDS: hydroCHLOROthiazide 12.5 MG CAP PO SCH (08:21)
[2019-05-31] MEDS: BENAZEPRIL 20 MG TAB PO SCH (08:23)
[2019-05-31] MEDS: CEFEPIME/SWI 1gm 10 ML IV SCH (08:24)
[2019-05-31] MEDS: HYDROCODONE/APAP 7.5/325 MG TAB PO SCH ×2 (08:24→13:14)
[2019-05-31 08:25] VITALS: BP 179/84
[2019-05-31 10:02] VITALS: TEMP 97.9
[2019-05-31] MEDS ORDERED: BENAZEPRIL PO SCH (10:47)
[2019-05-31] MEDS ORDERED: [UNRECOGNIZED DRUG - OTHER] PO SCH (10:47)
[2019-05-31] MEDS ORDERED: HYDROCHLOROTHIAZIDE PO SCH (10:47)
[2019-05-31] MEDS ORDERED: ALBUTEROL 2.5 MG/3 ML NEB SOL NEB PRN (15:00)
[2019-05-31] MEDS ORDERED: IPRATROPIUM BROM 0.5MG/2.5ML NEB PRN (15:00)
[2019-05-31] MEDS: ENOXAPARIN 40 MG/0.4 ML SQ SCH (15:55)
[2019-05-31 16:41] VITALS: O2SAT 97
--- NOTE | 2019-06-01 02:16 | DS ---
Date of Discharge: 05/31/2019 Consultants: Dr. Franklin with Pulmonology. Admitting Diagnoses: 1.Acute COPD exacerbation. 2.Essential hypertension. 3.Nicotine dependence with cigarette smoking. 4.Fibromyalgia. Discharge Diagnoses: 1.Acute COPD exacerbation, improved. 2.Essential hypertension. 3.Nicotine dependence. 4.Fibromyalgia. 5.Gram-negative pneumonia secondary to Klebsiella and Stenotrophomonas maltophilia. Hospital Course: The patient is a 73-year-old male with past medical history of COPD and hypertensio n, comes in with shortness of breath, worsening over the past couple of weeks. The patient had produ ctive cough as well. He was admitted to the hospital for COPD exacerbation. Chest x-ray was done, s howed advanced COPD, scarring in the left mid lung and also in the right perihilar area. The patient also had head CT scan done, which was negative. The patient did well over the course of the hospita l stay. His symptoms improved. His shortness of breath resolved. He was able to ambulate without d ifficulty. His troponin levels were negative. His white blood cell count, however, remained elevate d. This may be secondary to steroid-induced leukocytosis. He is steroid dependent at home versus ac [place] reactive neutrophilia. The patient had peripheral blood smear done, which did not show any acute leukemia-type picture. White count did trend down slightly. Lactate level was checked, which was n egative. D-dimer was also negative. The patient was not felt to be in sepsis. Cultures were obtain ed. Blood cultures were negative; however, his sputum culture grew out Klebsiella and Stenotrophomon as. The patient's IV antibiotics were adjusted. The patient was then cleared for discharge from Pul monology standpoint. He will need to follow up with his primary care physician in 2-3 days, follow u p with foreign language professor, Dr. Franklin, in 2 weeks. Repeat CBC in 1 week. Return to ER for worsening co ndition. Diet: Heart-healthy. Activity: As tolerated. Medications: As per medication reconciliation list. Physical Examination: General: Awake, alert, oriented x3. Elderly, frail, cachectic male. CV: S1, S2. Respiratory: Moving air well bilaterally. Abdomen: Soft, nontender, nondistended. Positive bowel sounds. Extremities: No clubbing, cyanosis, or edema. Neuro: Nonfocal. Total time spent discharging the patient was 36 minutes. /SENA Voice ID: [id number] Report ID: [id number]
[2019-06-01] MEDS ORDERED: PANTOPRAZOLE 40MG TABLET PO SCH (09:00)
[2019-06-01] MEDS ORDERED: THEOPHYLLINE SR 100 MG TAB PO SCH (09:00)
== END 2019-05-31 17:40 | disposition home health service (06) | DRG 190 ==
LOC: SUPCPDRO 11:51 → ER 11:51 → ERHOLD 14:09 → OBSVTOIN 14:09 → 4TH 16:33
PROVIDERS: ADMIT Internal Medicine Sleep Medicine; ATTEND Family Medicine
DX: J44.1 Chronic obstructive pulmonary disease with (acute) exacerbation (principal); J15.0 Pneumonia due to Klebsiella pneumoniae; J15.8 Pneumonia due to other specified bacteria; R64 Cachexia; J44.0 Chronic obstructive pulmonary disease with (acute) lower respiratory infection; I10 Essential (primary) hypertension; M79.7 Fibromyalgia; F17.210 Nicotine dependence, cigarettes, uncomplicated; G89.4 Chronic pain syndrome; Z68.20 Body mass index [BMI] 20.0-20.9, adult; Z79.51 Long term (current) use of inhaled steroids; Z79.52 Long term (current) use of systemic steroids; Z88.0 Allergy status to penicillin
CPT/HCPCS: 36415; 70450; 71045; 80048; 80076; 81001; 82550; 82553; 82805; 82962; 83605; 83690; 83735; 83880; 84484; 85025; 85027; 85379; 85610; 85730; 87040; 87070; 87077; 87186; 87205; 93005; 94760; 99285; J0360; J0456; J0692; J0696; J1650; J2920; J2930; J7030; J7512; J7605

== ENCOUNTER 2019-09-05 22:21 | Inpatient (IN) | payer OTHER, MEDICARE ==
[2019-09-05] MEDS ORDERED: ALBUTEROL 2.5 MG/3 ML NEB SOL ONE (22:49)
[2019-09-05] MEDS ORDERED: METHYLPREDNISOLONE 125 MG INJ ONE (22:49)
[2019-09-05] MEDS ORDERED: IPRATROPIUM BROM 0.5MG/2.5ML ONE (22:49)
[2019-09-05 22:54] LABS: Arterial Blood Carboxyhemoglob 2.1 % (0-1.5); Blood Gas Oxyhemoglobin 91.7 % (94-97); Blood O2 Saturation 94.4 % (92-98.5)
[2019-09-05 23:07] LABS: Absolute Lymphocytes (CBC) 3.7 K/uL (0.7-4.9); Basophils % 0.4 % (0-1.3); Hematocrit 46.4 % (39.6-49.0); Lymphocytes % 11.4 % (15.3-44.8); MPV 7.6 fL (7.6-11.3); RBC Red Blood Cell Count 4.92 M/uL (4.33-5.43)
[2019-09-05 23:13] LABS: Protime INR 1.1
[2019-09-05 23:21] LABS: Albumin 3.9 g/dL (3.4-5.0); Bilirubin Direct 0.1 mg/dL (0-0.2); Bilirubin Total 0.6 mg/dL (0.2-1.0); Potassium 3.9 mmol/L (3.5-5.1); Protein, Total 7.7 g/dL (6.4-8.2); Troponin (Emerg Dept Use Only) 0.02 ng/mL (0.0-0.045)
[2019-09-05] MEDS ORDERED: NITROGLYCERIN 0.4 MG/TAB SL ONE (23:33)
--- NOTE | 2019-09-05 23:44 | RAD REPORT ---
EXAM DESCRIPTION: RAD - Chest Single View - 09/05/2019 10:56 pm CLINICAL HISTORY: SOB Chest pain. COMPARISON: Chest Single View dated 05/29/2019; Chest Single View dated 05/28/2019; Chest Single View da phyllis 12/27/2018; Chest Pa And Lat (2 Views) dated 10/22/2018; Thorax Wo Con dated 12/27/2018 FINDINGS: Portable technique limits examination quality. Advanced fibroemphysematous changes are present throughout the lungs. No focal pulmonary infiltrate s een. The heart is normal in size. No displaced fractures. IMPRESSION: Severe emphysema.
[2019-09-05 23:56] LABS: Blood Morphology Comment NOT SEEN (NOT SEEN); Platelet Estimate ADEQ
[2019-09-06] MEDS ORDERED: Levofloxacin 750mg IV 750 MG/150 ML BAG IV ONE (01:29)
--- NOTE | 2019-09-06 01:32 | EDPHYS ---
Physician Documentation [facility] Name: Jason Anand Sr Age: 73 yrs Sex: Male : 1945 Arrival Date: 09/05/2019 Time: 22:31 Bed 7 Private MD: ED Physician Shaquille Maldonado HPI: 09/06 00:13 This 73 yrs old Male presents to ER via EMS with complaints of Shortness Of jr8 Breath. 00:13 The patient has shortness of breath at rest. Onset: The symptoms/episode began/occurred jr8 just prior to arrival. Associated signs and symptoms: Pertinent negatives: chest pain, diaphoresis, dizziness. Severity of symptoms: At their worst the symptoms were moderate in the emergency department the symptoms are unchanged. The patient has experienced similar episodes in the past. EMS called out because someone at the house said he wasn't acting right, pt tachypneic, hypertensive, and tachycardic upon arrival. History of COPD, moderate dyspnea. Historical: - Allergies: 09/05 23:17 PENICILLINS; aa1 - Home Meds: 23:17 mirtazapine 15 mg Oral tab 1 tab once daily [Active]; theophylline 300 mg Oral Tb12 1 aa1 tab every 12 hours [Active]; pantoprazole 40 mg oral TbEC 1 tab once daily [Active]; benazepril-hydrochlorothiazide 20-12.5 mg oral tab 1 tab once daily [Active]; prednisone 20 mg Oral tab 1 tab 2 times per day [Active]; prednisone 10 mg Oral tab once daily [Active]; lisinopril 20 mg Oral tab 1 tab once daily [Active]; - PMHx: 23:17 COPD; Fibromyalgia; Hypertension; aa1 - Immunization history:: Flu vaccine is not up to date. - Social history:: Smoking status: Patient uses tobacco products, smokes one-half pack cigarettes per day. - Ebola Screening: : Patient denies exposure to infectious person Patient denies travel to an Ebola-affected area in the 21 days before illness onset. ROS: 09/06 00:13 Constitutional: Negative for fever, chills, and weight loss, Eyes: Negative for injury, jr8 pain, redness, and discharge, ENT: Negative for injury, pain, and discharge, Neck: Negative for injury, pain, and swelling, Cardiovascular: Negative for chest pain, palpitations, and edema, Abdomen/GI: Negative for abdominal pain, nausea, vomiting, diarrhea, and constipation, Back: Negative for injury and pain. Respiratory: Positive for cough, shortness of breath, at rest. Neuro: Negative for altered mental status, dizziness, hearing loss. Exam: 00:13 Constitutional: This is a well developed, well nourished patient who is awake, alert, jr8 and in no acute distress. Head/Face: Normocephalic, atraumatic. Eyes: Pupils equal round and reactive to light, extra-ocular motions intact. Lids and lashes normal. Conjunctiva and sclera are non-icteric and not injected. Cornea within normal limits. Periorbital areas with no swelling, redness, or edema. ENT: Nares patent. No nasal discharge, no septal abnormalities noted. Tympanic membranes are normal and external auditory canals are clear. Oropharynx with no redness, swelling, or masses, exudates, or evidence of obstruction, uvula midline. Mucous membranes moist. Neck: Trachea midline, no thyromegaly or masses palpated, and no cervical lymphadenopathy. Supple, full range of motion without nuchal rigidity, or vertebral point tenderness. No Meningismus. Chest/axilla: Normal chest wall appearance and motion. Nontender with no deformity. No lesions are appreciated. Cardiovascular: Regular rate and rhythm with a normal S1 and S2. No gallops, murmurs, or rubs. Normal PMI, no JVD. No pulse deficits. Abdomen/GI: Soft, non-tender, with normal bowel sounds. No distension or tympany. No guarding or rebound. No evidence of tenderness throughout. MS/ Extremity: Pulses equal, no cyanosis. Neurovascular intact. Full, normal range of motion. Neuro: Awake and alert, GCS 15, oriented to person, place, time, and situation. Cranial nerves II-XII grossly intact. Motor strength 5/5 in all extremities. Sensory grossly intact. Cerebellar exam normal. Normal gait. 00:13 Respiratory: mild respiratory distress is noted, Respirations: labored breathing, that is mild, tachypnea, Breath sounds: decreased breath sounds, that are mild, are scattered. Vital Signs: 09/05 22:31 BP 194 / 112; Pulse 94; Resp 28; Temp 99.8; Pulse Ox 95% on 4 lpm NC; Weight 63.5 kg; aa1 Height 5 ft. 11 in. (180.34 cm); Pain 0/10; 23:06 BP 183 / 88; Pulse 100; Resp 24; Pulse Ox 98% on Nebulizer Mask; Pain 0/10; aa1 23:46 BP 138 / 72; Pulse 103; Resp 24; Temp 99.3; Pulse Ox 95% on 3 lpm NC; Pain 0/10; aa1 09/06 00:49 BP 135 / 71; Pulse 96; Resp 22; Temp 99.4; Pulse Ox 96% on 3 lpm NC; Pain 0/10; aa1 02:00 BP 146 / 76; Pulse 79; Resp 20; Temp 98.9; Pulse Ox 98% on 3 lpm NC; Pain 0/10; aa1 09/05 22:31 Body Mass Index 19.53 (63.50 kg, 180.34 cm) aa1 MDM: 09/05 22:32 Patient medically screened. [facility] 09/06 01:29 Data reviewed: vital signs, nurses notes, lab test result(s), EKG, radiologic studies, [facility] CT scan, plain films. Data interpreted: Pulse oximetry: on 4L(s) per nasal canula, is 95 %. Interpretation: acceptable. Counseling: I had a detailed discussion with the patient and/or guardian regarding: the historical points, exam findings, and any diagnostic results supporting the discharge/admit diagnosis, lab results, radiology results, the need for further work-up and treatment in the hospital. Physician consultation: Evert Ballesteros was called at 01:30, was contacted at 01:30, regarding admission, to the telemetry unit. and will see patient. 09/05 22:33 Order name: Basic Metabolic Panel; Complete Time: 23:30 [facility] 09/05 22:33 Order name: CBC with Diff; Complete Time: 23:58 [facility] 09/05 22:33 Order name: LFT's; Complete Time: 23:30 8 09/05 22:33 Order name: Magnesium; Complete Time: 23:30 8 09/05 22:33 Order name: NT PRO-BNP; Complete Time: 23:30 [facility] 09/05 22:33 Order name: PT-INR; Complete Time: 23:30 [facility] 09/05 22:33 Order name: Troponin (emerg Dept Use Only); Complete Time: 23:30 [facility] 09/05 22:35 Order name: ABG; Complete Time: 23:30 [facility] 09/05 22:36 Order name: Blood Culture Adult (2) [facility] 09/05 22:36 Order name: Procalcitonin [facility] 09/05 22:36 Order name: Lactate; Complete Time: 23:30 [facility] 09/05 22:37 Order name: Blood Culture [facility] 09/05 22:37 Order name: Procalcitonin; Complete Time: 23:36 [facility] 09/05 23:10 Order name: Manual Differential; Complete Time: 23:58 [facility] 09/05 22:33 Order name: XRAY Chest (1 view); Complete Time: 23:58 [facility] 09/05 22:33 Order name: EKG; Complete Time: 22:34 [facility] 09/05 22:33 Order name: Cardiac monitoring; Complete Time: 22:47 [facility] 09/05 22:33 Order name: EKG - Nurse/Tech; Complete Time: 22:47 [facility] 09/05 22:33 Order name: IV Saline Lock; Complete Time: 22:47 [facility] 09/05 22:33 Order name: Labs collected and sent; Complete Time: 22:47 [facility] 09/05 22:33 Order name: O2 Per Protocol; Complete Time: 22:47 [facility] 09/05 22:33 Order name: O2 Sat Monitoring; Complete Time: 22:47 [facility] 09/05 23:37 Order name: CT Chest W/ Con [facility] Administered Medications: 09/05 22:55 Drug: Albuterol - atroVENT (3:1) (2.5 mg - 0.5 mg) 3 ml Route: Nebulizer; aa1 23:55 Follow up: Response: No adverse reaction aa1 22:55 Drug: SOLU-Medrol 125 mg Route: IVP; Site: right forearm; aa1 23:55 Follow up: Response: No adverse reaction aa1 23:38 Drug: Nitroglycerin 0.4 mg Route: Sublingual; aa1 23:47 Follow up: Response: No adverse reaction; Blood pressure is lowered aa1 09/06 01:33 Drug: LevaQUIN 750 mg Volume: 150 ml; Route: IVPB; Infused Over: 90 mins; Site: right aa1 forearm; 02:30 Follow up: IV Status: Infusion continued upon admission aa1 Disposition: 03:04 Co-signature as Attending Physician, Shaquille Maldonado MD. pkrosie Disposition: 09/06/19 01:31 Hospitalization ordered by Evert Ballesteros for Inpatient Admission. Preliminary diagnosis are Pneumonia due to other specified bacteria, Chronic obstructive pulmonary disease with (acute) exacerbation. - Bed requested for Telemetry/MedSurg (Inpatient). - Status is Inpatient Admission. aa1 - Condition is Stable. - Problem is new. - Symptoms have improved. UTI on Admission? No Signatures: Dispatcher [employer] EDMS Sharon Navarrete RN RN Ruth Gonzales RN RN aa1 Shaquille Maldonado MD MD pkPatrice Tijerina PA PA jr8 Corrections: (The following items were deleted from the chart) 01:43 01:31 Hospitalization Ordered by Evert Ballesteros for Inpatient Admission. Preliminary diagnosis is Pneumonia due to other specified bacteria; Chronic obstructive pulmonary disease with (acute) exacerbation. Bed requested for Telemetry/MedSurg (Inpatient). Status is Inpatient Admission. Condition is Stable. Problem is new. Symptoms have improved. UTI on Admission? No. jr8 02:59 01:43 09/06/2019 01:31 Hospitalization Ordered by Evert Ballesteros for Inpatient aa1 Admission. Preliminary diagnosis is Pneumonia due to other specified bacteria; Chronic obstructive pulmonary disease with (acute) exacerbation. Bed requested for Telemetry/MedSurg (Inpatient). Status is Inpatient Admission. Condition is Stable. Problem is new. Symptoms have improved. UTI on Admission? No. mw
--- NOTE | 2019-09-06 01:32 | ER ---
Nurse's Notes [facility] Name: Jason Anand Sr Age: 73 yrs Sex: Male : 1945 Arrival Date: 09/05/2019 Time: 22:31 Bed 7 Private MD: Diagnosis: Pneumonia due to other specified bacteria;Chronic obstructive pulmonary disease with (acute) exacerbation Presentation: 09/05 22:31 Presenting complaint: EMS states: pt's neighbor came by to check on him this evening aa1 and found pt on the couch short of breath and not acting like himself and had urinated. Upon arrival to ED pt states he started feeling bad shortly after lunch today. C/O SOB and generalized weakness. Denies pain. Reports hx of COPD and wears home O2. Transition of care: patient was not received from another setting of care. Onset of symptoms was September 05, 2019. Risk Assessment: Do you want to hurt yourself or someone else? Patient reports no desire to harm self or others. Initial Sepsis Screen: Does the patient meet any 2 criteria? RR > 20 per min. HR > 90 bpm. Yes Does the patient have a suspected source of infection? No. Patient's initial sepsis screen is negative. Care prior to arrival: Glucose check: 110 Oxygen administered. via nasal cannula. 22:31 Method Of Arrival: EMS: [facility] aa1 22:31 Acuity: CARLOS 2 aa1 Historical: - Allergies: 23:17 PENICILLINS; aa1 - Home Meds: 23:17 mirtazapine 15 mg Oral tab 1 tab once daily [Active]; theophylline 300 mg Oral Tb12 1 aa1 tab every 12 hours [Active]; pantoprazole 40 mg oral TbEC 1 tab once daily [Active]; benazepril-hydrochlorothiazide 20-12.5 mg oral tab 1 tab once daily [Active]; prednisone 20 mg Oral tab 1 tab 2 times per day [Active]; prednisone 10 mg Oral tab once daily [Active]; lisinopril 20 mg Oral tab 1 tab once daily [Active]; - PMHx: 23:17 COPD; Fibromyalgia; Hypertension; aa1 - Immunization history:: Flu vaccine is not up to date. - Social history:: Smoking status: Patient uses tobacco products, smokes one-half pack cigarettes per day. - Ebola Screening: : Patient denies exposure to infectious person Patient denies travel to an Ebola-affected area in the 21 days before illness onset. Screenin:35 Abuse screen: Denies threats or abuse. Denies injuries from another. Nutritional aa1 screening: No deficits noted. Tuberculosis screening: No symptoms or risk factors identified. Fall Risk Gait- Weak (10 pts.). Assessment: 22:35 General: Appears in no apparent distress. comfortable, Behavior is cooperative, drowsy, aa1 Smells of cigarette smoke. Pain: Denies pain. Neuro: Level of Consciousness is awake, obeys commands, Oriented to person, place, situation, Moves all extremities. Speech is normal. Cardiovascular: Denies chest pain, diaphoresis, palpitations, Heart tones S1 S2 present Rhythm is regular. Respiratory: Reports shortness of breath at rest Airway is patent Respiratory effort is even, shallow, Respiratory pattern is snoring Breath sounds are coarse bilaterally. Onset: The symptoms/episode began/occurred today, the patient has moderate shortness of breath. GI: No signs and/or symptoms were reported involving the gastrointestinal system. : No signs and/or symptoms were reported regarding the genitourinary system. EENT: No signs and/or symptoms were reported regarding the EENT system. Derm: Skin is intact, is healthy with good turgor, Skin is pink, warm \T\ dry. Musculoskeletal: Circulation, motion, and sensation intact. Capillary refill < 3 seconds. 22:53 Reassessment: Pt's wallet given to his brother. aa1 23:46 Reassessment: Patient appears in no apparent distress at this time. Patient and/or aa1 family updated on plan of care and expected duration. Pain level reassessed. Pt resting quietly; family at bedside. Pt's medications given to his brother. Awaiting provider reassessment. 09/06 00:49 Reassessment: Patient appears in no apparent distress at this time. Patient and/or aa1 family updated on plan of care and expected duration. Pain level reassessed. Patient is alert, oriented x 3, equal unlabored respirations, skin warm/dry/pink. Pt reports he feels much better and wants to go home. Informed pt we are still waiting for CT results and provider will be back in to see him once all tests have been resulted Patient denies pain at this time. Patient states feeling better. Patient states symptoms have improved. 02:22 Reassessment: Patient appears in no apparent distress at this time. Patient and/or aa1 family updated on plan of care and expected duration. Pain level reassessed. Patient is alert, oriented x 3, equal unlabored respirations, skin warm/dry/pink. Report given to JEREMY Garcia. Vital Signs: 09/05 22:31 BP 194 / 112; Pulse 94; Resp 28; Temp 99.8; Pulse Ox 95% on 4 lpm NC; Weight 63.5 kg; aa1 Height 5 ft. 11 in. (180.34 cm); Pain 0/10; 23:06 BP 183 / 88; Pulse 100; Resp 24; Pulse Ox 98% on Nebulizer Mask; Pain 0/10; aa1 23:46 BP 138 / 72; Pulse 103; Resp 24; Temp 99.3; Pulse Ox 95% on 3 lpm NC; Pain 0/10; aa1 09/06 00:49 BP 135 / 71; Pulse 96; Resp 22; Temp 99.4; Pulse Ox 96% on 3 lpm NC; Pain 0/10; aa1 02:00 BP 146 / 76; Pulse 79; Resp 20; Temp 98.9; Pulse Ox 98% on 3 lpm NC; Pain 0/10; aa1 09/05 22:31 Body Mass Index 19.53 (63.50 kg, 180.34 cm) aa1 ED Course: 09/05 22:31 Patient arrived in ED. aa1 22:31 Arm band placed on right wrist. Patient placed in an exam room, on a stretcher, on aa1 oxygen. 22:32 [facility]campo [facility]. jr8 22:32 Shaquille Maldonado MD is Attending Physician. jr8 22:35 Patient has correct armband on for positive identification. Placed in gown. Bed in low aa1 position. Call light in reach. Side rails up X2. team facilitator on. Pulse ox on. NIBP on. Warm blanket given. 22:43 Initial lab(s) drawn, by me, sent to lab. First set of blood cultures drawn by me. EKG aa1 done, by ED staff, reviewed by Patrice SANCHES. Inserted saline lock: 20 gauge in right forearm, using aseptic technique. Blood collected. 22:45 Ruth Gonzales, RN is Primary Nurse. aa1 22:56 XRAY Chest (1 view) In Process Unspecified. EDMS 23:04 Triage completed. aa1 09/06 00:43 CT Chest W/ Con In Process Unspecified. EDMS 01:30 Evert Ballesteros is Hospitalizing Provider. jr8 02:15 No provider procedures requiring assistance completed. Patient admitted, IV remains in aa1 place. Administered Medications: 09/05 22:55 Drug: Albuterol - atroVENT (3:1) (2.5 mg - 0.5 mg) 3 ml Route: Nebulizer; aa1 23:55 Follow up: Response: No adverse reaction aa1 22:55 Drug: SOLU-Medrol 125 mg Route: IVP; Site: right forearm; aa1 23:55 Follow up: Response: No adverse reaction aa1 23:38 Drug: Nitroglycerin 0.4 mg Route: Sublingual; aa1 23:47 Follow up: Response: No adverse reaction; Blood pressure is lowered aa1 09/06 01:33 Drug: LevaQUIN 750 mg Volume: 150 ml; Route: IVPB; Infused Over: 90 mins; Site: right aa1 forearm; 02:30 Follow up: IV Status: Infusion continued upon admission aa1 Outcome: 01:31 Decision to Hospitalize by Provider. jr8 02:30 Admitted to Tele accompanied by tech, family with patient, via wheelchair, room 215, aa1 with oxygen, with chart, Report called to JEREMY Garcia 02:30 Condition: stable 02:30 Instructed on the need for admit, Demonstrated understanding of instructions. 02:59 Patient left the ED. aa1 Signatures: Dispatcher [employer] EDRuth Calderon, JEREMY RN aa1 Patrice Ocapmo PA PA jr8
--- NOTE | 2019-09-06 01:58 | P.HP ---
Certification for Inpatient Patient admitted to: Inpatient With expected LOS: >2 Midnights Practitioner: I am a practitioner with admitting privileges, knowledge of patient current condition, hospital course, and medical plan of care. Services: Services provided to patient in accordance with Admission requirements found in Title 42 Section 412.3 of the Code of Federal Regulations Patient History Date of Service: 09/06/19 Reason for admission: Altered mental status History of Present Illness: 73-year-old gentleman with a history of COPD, emphysema, and chronic respiratory failure on home oxygen, also has Trilogy at home, was brought to the emergency department due to altered mental status and shortness of breath. Family found him laying in his couch, confused, wheezing and short of breath. He was brought to the emergency department where patient was noted to be afebrile. He was tachypneic on arrival. CBC revealed severe leukocytosis. CT chest reports bilateral lower lobe pneumonia and right upper lobe confluent shadow indicative of a mass concerning for malignancy. He is on chronic oral prednisone therapy and use nebulizers at home. Patient is admitted for further management. Allergies Penicillins Allergy (Verified 09/06/19 02:57) Itching/Hives/Rash Home Medications: Lisinopril [Prinivil*] 20 mg PO DAILY 09/06/19 Theophylline [Andriy-Dur*] 300 mg PO DAILY 09/06/19 predniSONE [Deltasone*] 1 tab PO DAILY 09/06/19 - Past Medical/Surgical History Diabetic: No -: COPD -: HTN -: tobacco abuse -: fibromyalgia -: emphysema -: knee sx - Family History Father -: Cancer Mother Notes: pneumonia - Social History Alcohol use: No CD- Drugs: No Caffeine use: Yes Review of Systems Other: General: No fever, no malaise, no unintentional weight loss. Eyes: No eye discharge, CVS: No chest pain, no palpitation, no lightheadedness. GI: No abdominal pain, no nausea no vomit, no constipation, no diarrhea. Genitourinary: No dysuria, no urinary frequency, no incontinence, no hematuria. Musculoskeletal: No joint pains, or joint swelling. Neurology: No headache, no asymmetric, weakness, no problem with swallowing. Except as documented, all other systems reviewed and negative. Physical Examination - Physical Exam General: Alert, In no apparent distress, Oriented x3 HEENT: Atraumatic, PERRLA, Mucous membr. moist/pink Neck: Supple, JVD not distended Respiratory: Clear to auscultation bilaterally, Diminished (Diffuse tenderness breath sounds) Cardiovascular: No edema, Regular rate/rhythm, Normal S1 S2, No murmurs Capillary refill: <2 Seconds Gastrointestinal: Normal bowel sounds, Soft and benign, Non-distended, No tenderness Musculoskeletal: No swelling, No erythema Integumentary: No rashes, No erythema Neurological: Normal strength at 5/5 x4 extr, Cranial nerves 3-12 intact - Studies Laboratory Data (last 24 hrs) 09/05/19 22:43: PT 12.9 H, INR 1.10 09/05/19 22:43: WBC 32.7 H*, Hgb 15.7, Hct 46.4, Plt Count 390 09/05/19 22:43: Sodium 138, Potassium 3.9, BUN 16, Creatinine 1.23, Glucose 96, Magnesium 2.0, Total Bilirubin 0.6, AST 15, ALT 13, Alkaline Phosphatase 74 Assessment and Plan - Problems (Diagnosis) (1) Acute and chronic respiratory failure with hypoxia Current Visit: Yes Status: Acute (2) Acute encephalopathy Current Visit: Yes Status: Acute (3) COPD exacerbation Onset Date: 10/21/18 Current Visit: No Status: Acute (4) Pneumonia Onset Date: 10/21/18 Current Visit: No Status: Acute Qualifiers: Pneumonia type: due to unspecified organism Laterality: right Lung location: lower lobe of lung Qualified Code(s): J18.1 - Lobar pneumonia, unspecified organism (5) Lung mass Current Visit: Yes Status: Acute (6) HTN (hypertension) Onset Date: 12/28/18 Current Visit: No Status: Chronic Qualifiers: Hypertension type: essential hypertension Qualified Code(s): I10 - Essential (primary) hypertension (7) Leukocytosis Current Visit: Yes Status: Acute - Plan Admit to general medical floor Scheduled bronchodilator Albuterol p.r.n. Will treat with IV steroid IV Levaquin Consult to pulmonary-Dr. Franklin Titrate oxygen Follow blood cultures Monitor CBC Continue home antihypertensives - Advance Directives Does patient have a Living Will: Yes Does patient have a Durable POA for Healthcare: No
[2019-09-06] MEDS ORDERED: ONDANSETRON 4 MG/2 ML VIAL IV PRN (02:37)
[2019-09-06] MEDS ORDERED: ACETAMINOPHEN 500 MG TAB PO PRN (02:37)
[2019-09-06 02:56] VITALS: BMI 19.5
[2019-09-06] MEDS ORDERED: Levofloxacin 750mg IV 750 MG/150 ML BAG IV SCH (03:00)
[2019-09-06] MEDS: NA CHLORIDE 0.9% 1,000 ML IV SCH ×2 (03:13→16:50)
[2019-09-06] MEDS: METHYLPREDNISOLONE 40 MG INJ IV SCH ×3 (05:04→18:00)
[2019-09-06 05:30] LABS: Urine Appearance CLEAR; Urine Bilirubin NEGATIVE (NEG); Urine Blood 2+ (NEG); Urine Color YELLOW; Urine Glucose TRACE (NEG); Urine Protein 1+ (NEG); Urine Specific Gravity >=1.030 (1.005-1.030); Urine Urobilinogen 0.2 mg/dL (0.2-1.0); Urine pH 8.5 (5.0-7.0)
[2019-09-06 05:33] LABS: Urine Microscopic Reflex ORDER UMIC
[2019-09-06 06:07] LABS: Urine Bacteria <20 /HPF (NONE SEEN); Urine Culture Reflex Order NOT NEEDED; Urine RBC 20-50 /HPF (NONE SEEN)
[2019-09-06] MEDS: ALBUTEROL 2.5 MG/3 ML NEB SOL NEB SCH ×3 (07:46→20:15)
[2019-09-06] MEDS: ARFORMOTEROL TARTRATE 15 MCG/2 ML VIAL.NEB NEB SCH ×2 (07:46→20:15)
[2019-09-06] MEDS: IPRATROPIUM BROM 0.5MG/2.5ML NEB SCH ×3 (07:46→20:15)
[2019-09-06] MEDS ORDERED: INFLUENZA VACCINE (for 3y+) 0.5 ML DOSE IMVAC ONE (08:00)
--- NOTE | 2019-09-06 08:29 | P.CNS ---
Date of Consult: 09/06/19 Reason for Consult: Abnormal CT scan Chief Complaint: Altered mental status History of Present Illness: Patient is 73 years of age well known to me he has terminal COPD significant depression admitted with altered mental status shortness of breath he was found in the couch confused wheezing short of breath compliant with his medication he has been doing well recently gained some weight patient states that his compliant with his medication has some more cough and congestion and an elevated white count and an opacity which appears to be chronic maybe slightly larger white count is also elevated Allergies Penicillins Allergy (Verified 09/06/19 02:57) Itching/Hives/Rash Home Medications: Lisinopril [Prinivil*] 20 mg PO DAILY 09/06/19 Theophylline [Andriy-Dur*] 300 mg PO DAILY 09/06/19 predniSONE [Deltasone*] 1 tab PO DAILY 09/06/19 - Past Medical/Surgical History Diabetic: No -: COPD -: HTN -: tobacco abuse -: fibromyalgia -: emphysema -: Atypical mycobacterium infection -: knee sx - Family History Father Medical History: Cancer Mother Notes: pneumonia - Social History Smoking Status: Current every day smoker Alcohol use: No CD- Drugs: No Caffeine use: Yes Place of Residence: Home Review of Systems General: Weakness Respiratory: Cough, Shortness of Breath Physical Examination Temp Pulse Resp BP Pulse Ox 97.4 F 84 28 H 163/78 H 97 09/06/19 03:08 09/06/19 03:08 09/06/19 03:08 09/06/19 03:08 09/06/19 03:08 General: Alert, In no apparent distress, Oriented x3 HEENT: Atraumatic Neck: Supple Respiratory: Diminished, Expiratory wheezes Cardiovascular: No edema, Normal pulses, Regular rate/rhythm Gastrointestinal: Normal bowel sounds, Soft and benign, No tenderness Musculoskeletal: No clubbing, No swelling Laboratory Data (last 24 hrs) 09/05/19 22:43: PT 12.9 H, INR 1.10 09/05/19 22:43: WBC 32.7 H*, Hgb 15.7, Hct 46.4, Plt Count 390 09/05/19 22:43: Sodium 138, Potassium 3.9, BUN 16, Creatinine 1.23, Glucose 96, Magnesium 2.0, Total Bilirubin 0.6, AST 15, ALT 13, Alkaline Phosphatase 74 - Problems (1) COPD exacerbation Onset Date: 10/21/18 Current Visit: No Status: Acute Plan: Patient is 73 years of age with a history of terminal COPD depression admitted with worsening shortness of breath altered mental status he does have a chronic right upper lobe opacity maybe slightly larger he has had a history of atypical mycobacterium infection a long time ago significant depression compliant with his medications white count elevated oxygenation satisfactory is quite possible that he has a superimposed infection continue with levofloxacin change to p.o. 750 mg patient's vital signs are stable he is not a candidate for any treatment for his lung cancer discuss with the patient possible monitoring with a CT scan he is high risk for any procedures as easy eating and drinking and guide changer to p.o. levofloxacin and p.o. prednisone once is white count has significantly declined can be discharged home
[2019-09-06] MEDS: ENOXAPARIN 40 MG/0.4 ML SQ SCH (09:00)
--- NOTE | 2019-09-06 09:58 | RAD REPORT ---
EXAM DESCRIPTION: Thorax W/ Con CLINICAL HISTORY: Dyspnea COMPARISON: There are bilateral calcified and noncalcified pleural plaques.: December 27, 2018. TECHNIQUE: CT CHEST WITH IV CONTRAST on 09/05/2019 11:37 PM CDT. MIPS reconstructions were generated . This exam was performed according to our departmental dose-optimization program, which includes autom ated exposure control, adjustment of the mA and/or kV according to patient size and/or use of iterati ve reconstruction technique. MIP images were generated. FINDINGS: Thoracic aorta is normal in course and caliber without aneurysm or dissection. Pulmonary a rteries are adequately opacified without acute or chronic filling defects. The heart is normal in size. There is no pericardial effusion. Intrathoracic lymph nodes are not enla rged. There is no pleural effusion, pleural thickening or pneumothorax. Central airways are patent. There i s moderate to severe upper lung centrilobular emphysema. There is mild medial left basilar airspace d isease. There is a calcified right lower lobe granuloma. There is an irregular right upper lobe mass measuring 3.6 cm. There is minimal involvement of the right lung base. There are no acute abnormalities within the limited images of the upper abdomen. There are no acute osseous findings. No suspicious bony lesions. IMPRESSION: Suspect at least left lower lobe pneumonia with potential right lower lobe involvement a s well. Previously seen left upper lobe consolidation has resolved. Unchanged appearance of the inferior right upper lobe mass. Malignancy in this area is not excluded. Electronically signed by: Roberto Ponce MD 09/06/2019 1:04 AM CDT Due to temporary technical issues with the PACS/Fluency reporting system, reports are being signed by the in house radiologist as a courtesy to ensure prompt reporting. The interpreting radiologist is f ully responsible for the content of the report.
[2019-09-06] MEDS ORDERED: MIRTAZAPINE 15 MG TAB PO PRN (12:13)
[2019-09-06] MEDS ORDERED: HYDROCODONE/APAP 7.5/325 MG TAB PO PRN (12:13)
--- NOTE | 2019-09-06 12:13 | EKG ---
Test Date: 2019-09-05 Test Time: 22:37:36 Medical Anthropology Director: MAHAD MEASUREMENT RESULTS: Intervals: Rate: 104 LA: 122 QRSD: 82 QT: 336 QTc: 441 [place]: P: 82 LA: 122 QRS: 87 T: 79 INTERPRETIVE STATEMENTS: Sinus tachycardia Nonspecific ST abnormality Abnormal ECG Compared to ECG 05/28/2019 12:09:24 ST (T wave) deviation now present Sinus rhythm no longer present Sinus arrhythmia no longer present Atrial abnormality no longer present Electronically Signed On 09-06-19 12:10:24 CDT by Lance Rader
--- NOTE | 2019-09-06 12:22 | P.PN ---
Subjective Date of Service: 09/06/19 Primary Care Provider: Dr. Alfredo; Pulmonary-Dr. Franklin Chief Complaint: Altered mental status Subjective: Other (Patient more alert. Stable with nasal cannula.) Physical Examination - Vital Signs Temperature: 97.4 F Blood Pressure: 142/69 Pulse: 77 Respirations: 17 Pulse Ox (%): 97 - Physical Exam General: Alert, In no apparent distress, Cooperative HEENT: Atraumatic Neck: Supple Respiratory: Expiratory wheezes (Bilateral), Inspiratory wheezes (Bilateral) Cardiovascular: Normal pulses, Regular rate/rhythm Gastrointestinal: Normal bowel sounds, Soft and benign, Non-distended, No rebound, No guarding Musculoskeletal: No erythema, No tenderness, No warmth Integumentary: No tenderness/swelling, No erythema, No warmth, No cyanosis Neurological: Normal speech, Normal strength at 5/5 x4 extr, Normal tone, Normal affect - Studies Laboratory Data (last 24 hrs) 09/05/19 22:43: PT 12.9 H, INR 1.10 09/05/19 22:43: WBC 32.7 H*, Hgb 15.7, Hct 46.4, Plt Count 390 09/05/19 22:43: Sodium 138, Potassium 3.9, BUN 16, Creatinine 1.23, Glucose 96, Magnesium 2.0, Total Bilirubin 0.6, AST 15, ALT 13, Alkaline Phosphatase 74 Medications List Reviewed: Yes Assessment & Plan Discharge Plan: Home Plan to discharge in: Greater than 2 days Physician Review Additional Text: Impression: Acute encephalopathy likely related to acute on chronic respiratory failure with hypoxia secondary to COPD exacerbation and superimposed bilateral pneumonia Terminal COPD on chronic steroids and oxygen Right upper lobe mass Hypertension GERD Chronic pain Plan: Acute encephalopathy likely related to acute on chronic respiratory failure with hypoxia secondary to COPD exacerbation and superimposed bilateral pneumonia : Continue with COPD medication. Case discussed with pulmonology. CT scan reviewed. Continue antibiotic treatment. Will have physical therapy assess ambulation. Patient has improved. Patient on DVT prophylaxis-Lovenox. Likely discharge in the next 2 days with clinical improvement. Patient may require home health and physical therapy. Terminal COPD on chronic steroids and oxygen: Continue with above plan of care. Pulmonology reports patient with terminal COPD. Right upper lobe mass: Discussed with pulmonology. Pulmonology plans to follow up on CT scan as an outpatient to further monitor. Patient likely not a candidate for treatment in the future if this is malignant in nature. Hypertension: Continue home medication. GERD: Continue with medication. Chronic pain: Continue with medication. Will monitor and adjust appropriately. Time Spent Managing Pts Care (In Minutes): 55
[2019-09-06] MEDS: LISINOPRIL 20 MG TAB PO SCH (17:01)
[2019-09-07] MEDS: METHYLPREDNISOLONE 40 MG INJ IV SCH ×2 (00:05→06:02)
[2019-09-07] MEDS: IPRATROPIUM BROM 0.5MG/2.5ML NEB SCH ×3 (01:22→15:14)
[2019-09-07] MEDS: ALBUTEROL 2.5 MG/3 ML NEB SOL NEB SCH ×3 (01:22→15:14)
[2019-09-07] MEDS: NA CHLORIDE 0.9% 1,000 ML IV SCH (04:55)
[2019-09-07 05:32] LABS: Absolute Lymphocytes (CBC) 2.4 K/uL (0.7-4.9); Basophils % 0.2 % (0-1.3); Hematocrit 39.1 % (39.6-49.0); MPV 7.6 fL (7.6-11.3); RBC Red Blood Cell Count 4.12 M/uL (4.33-5.43)
[2019-09-07 05:51] LABS: Phosphorus 2.9 mg/dL (2.5-4.9); Potassium 3.9 mmol/L (3.5-5.1)
[2019-09-07] MEDS ORDERED: PANTOPRAZOLE 40MG TABLET PO SCH (06:00)
[2019-09-07] MEDS: ARFORMOTEROL TARTRATE 15 MCG/2 ML VIAL.NEB NEB SCH (07:50)
[2019-09-07] MEDS: LISINOPRIL 20 MG TAB PO SCH (08:57)
[2019-09-07] MEDS: ENOXAPARIN 40 MG/0.4 ML SQ SCH (08:57)
[2019-09-07] MEDS ORDERED: POTASSIUM CL SA 10 MEQ TAB PO ONE (09:00)
[2019-09-07] MEDS ORDERED: predniSONE 20 MG TAB PO SCH (09:00)
[2019-09-07] MEDS ORDERED: levoFLOXacin 750 MG TAB PO SCH (09:00)
[2019-09-07] MEDS ORDERED: METOPROLOL TARTRATE 5 MG/5 ML INJ IV ONE (09:56)
--- NOTE | 2019-09-07 10:45 | P.PN ---
Subjective Date of Service: 09/07/19 Primary Care Provider: Dr. Alfredo; Pulmonary-Dr. Franklin Chief Complaint: Altered mental status Subjective: Doing well (Patient doing better. After patient was seen I was called back as the patient went into AFib. Rate around 120.) Physical Examination - Vital Signs Temperature: 98.4 F Blood Pressure: 138/66 Pulse: 84 Respirations: 18 Pulse Ox (%): 96 - Physical Exam General: Alert, In no apparent distress, Oriented x3, Cooperative HEENT: Atraumatic Neck: Supple Respiratory: Expiratory wheezes (Bilateral) Cardiovascular: Irregular heart rate/rhythm (Atrial fibrillation rate around 120 ) Gastrointestinal: Normal bowel sounds, Soft and benign, Non-distended, No tenderness, No masses, No rebound, No guarding Musculoskeletal: No erythema, No tenderness, No warmth Integumentary: No tenderness/swelling, No erythema, No warmth, No cyanosis Neurological: Normal speech, Normal strength at 5/5 x4 extr, Normal tone, Normal affect - Studies Medications List Reviewed: Yes Assessment & Plan Discharge Plan: Home Plan to discharge in: 24 Hours Physician Review Additional Text: Impression: Acute encephalopathy likely related to acute on chronic respiratory failure with hypoxia secondary to COPD exacerbation and superimposed bilateral pneumonia Terminal COPD on chronic steroids and oxygen New onset atrial fibrillation Right upper lobe mass Hypertension GERD Chronic pain Chronic leukocytosis Plan: Acute encephalopathy likely related to acute on chronic respiratory failure with hypoxia secondary to COPD exacerbation and superimposed bilateral pneumonia : Patient has improved. Patient continues with COPD medication. Case discussed at length with pulmonology. CT scan reviewed. Patient went into new onset atrial fibrillation this morning. IV Lopressor given. Will start beta- kurt therapy for rate control. AFib likely related to Levaquin. Levaquin has been discontinued. Patient has terminal COPD. Patient understands this in detail. Advanced directives addressed. Patient wishes to be DNR. Patient wishes to go home today. Case discussed again with patient, family and with pulmonology. Will change IV antibiotic therapy to doxycycline. Will continue with IV Lopressor and initiate oral beta-kurt therapy for rate control. Will keep the patient on DVT prophylaxis-Lovenox as patient is high risk for bleeding. Will likely not recommended chronic anti coagulation therapy but only aspirin. Will consult cardiology to further evaluate. Await recommendation. Possible discharge within the next 24 hr. Although, Patient desires to go home as soon as possible. Terminal COPD on chronic steroids and oxygen: Continue with above plan of care. Pulmonology reports patient with terminal COPD. Patient understands this in detail. Continue as above. New onset atrial fibrillation: Continue as above. Likely related to Levaquin. Levaquin has been discontinued. Patient given IV Lopressor. Will recheck EKG. Start beta-kurt therapy for rate control. Will not recommend chronic anti coagulation therapy due to risk of bleeding. Will start aspirin. Patient on DVT prophylaxis-Lovenox. Case discussed at length with pulmonology who agrees. Cardiology consulted for further recommendation. Right upper lobe mass: Discussed with pulmonology. Pulmonology plans to follow up on CT scan as an outpatient to further monitor. Patient likely not a candidate for treatment in the future if this is malignant in nature. Patient does not want any further workup. Will need to consider hospice if his condition continues decline in the future. Hypertension: Medication adjusted lisinopril discontinued. Metoprolol added. GERD: Continue with medication. Chronic pain: Continue with medication. Will monitor and adjust appropriately. Chronic leukocytosis: Will send for peripheral smear. Patient may require Hematology/Oncology workup as an outpatient. Patient will consider this but may not considering his chronic COPD Time Spent Managing Pts Care (In Minutes): 55
[2019-09-07 11:18] LABS: Blood Morphology Comment NOT SEEN (NOT SEEN); Platelet Estimate ADEQ
--- NOTE | 2019-09-07 11:37 | P.PN ---
Subjective Date of Service: 09/07/19 Primary Care Provider: Dr. Alfredo; Pulmonary-Dr. Franklin Chief Complaint: COPD exacerbation Subjective: Improving (Doing well/ Deveolped Afib today. CElevation of WBC) Review of Systems Respiratory: Cough, Shortness of Breath Physical Examination - Vital Signs Temperature: 98.4 F Blood Pressure: 138/66 Pulse: 84 Respirations: 18 Pulse Ox (%): 96 - Physical Exam General: Alert, In no apparent distress, Oriented x3 Respiratory: Clear to auscultation bilaterally, Diminished Cardiovascular: No edema, Irregular heart rate/rhythm - Studies Medications List Reviewed: Yes Assessment & Plan - Problems (Diagnosis) (1) COPD exacerbation Onset Date: 10/21/18 Current Visit: No Status: Acute Plan: Aw COPD exacerbatiuon. Avoid LevaQUIN. High risk for anticaogulation. control rate wiht B blockers and add aspirin. chagne o Cefuroxime and poss discharge am. Peripheral smear. 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 NE of active infection. Echo pending Physician Review Additional Text: I
--- NOTE | 2019-09-07 12:42 | EKG ---
Test Date: 2019-09-07 Test Time: 09:50:30 Final Touch Up Painter: NAIMA MEASUREMENT RESULTS: Intervals: Rate: 127 NV: QRSD: 84 QT: 314 QTc: 456 [place]: P: NV: QRS: 83 T: -20 INTERPRETIVE STATEMENTS: Atrial fibrillation with rapid ventricular response Marked ST abnormality, possible inferior subendocardial injury Abnormal ECG Compared to ECG 09/05/2019 22:37:36 Sinus tachycardia no longer present ST (T wave) deviation still present Electronically Signed On 09-07-19 12:42:27 CDT by Ean Mohan
[2019-09-07 13:26] VITALS: BP 139/88; TEMP 98.7
[2019-09-07 13:42] VITALS: O2SAT 95
--- NOTE | 2019-09-07 14:43 | P.DS ---
Admission Date: 09/06/19 Discharge Date: 09/07/19 Primary Care Provider: Dr. Alfredo; Pulmonary-Dr. Franklin Disposition: ROUTINE DISCHARGE Discharge Condition: GOOD Reason for Admission: COPD exacerbation Consultations: Pulmonary-Dr. Franklin Procedures: CT chest: FINDINGS: Thoracic aorta is normal in course and caliber without aneurysm or dissection. Pulmonary arteries are adequately opacified without acute or chronic filling defects. The heart is normal in size. There is no pericardial effusion. Intrathoracic lymph nodes are not enlarged. There is no pleural effusion, pleural thickening or pneumothorax. Central airways are patent. There is moderate to severe upper lung centrilobular emphysema. There is mild medial left basilar airspace disease. There is a calcified right lower lobe granuloma. There is an irregular right upper lobe mass measuring 3.6 cm. There is minimal involvement of the right lung base. There are no acute abnormalities within the limited images of the upper abdomen. There are no acute osseous findings. No suspicious bony lesions. IMPRESSION: Suspect at least left lower lobe pneumonia with potential right lower lobe involvement as well. Previously seen left upper lobe consolidation has resolved. Unchanged appearance of the inferior right upper lobe mass. Malignancy in this area is not excluded. Medical Problem List: Acute encephalopathy likely related to acute on chronic respiratory failure with hypoxia secondary to COPD exacerbation and superimposed bilateral pneumonia Terminal COPD on chronic steroids and oxygen New onset atrial fibrillation likely related to medication-Levaquin Right upper lobe mass, chronic Hypertension GERD Chronic pain Chronic leukocytosis Brief History of Present Illness: 73-year-old male presented to the emergency room with altered mental status. Patient with terminal COPD. He was found on the couch with shortness of breath and wheezing. Patient was seen and evaluated in the emergency room. He was found to have acute on chronic respiratory failure with hypoxia secondary to COPD exacerbation with pneumonia. Hospital Course: Patient presented with acute encephalopathy likely related to acute on chronic respiratory failure with hypoxia secondary to COPD exacerbation and superimposed bilateral pneumonia. The patient was admitted and provided IV antibiotic therapy with COPD medication. Responded well to medical therapy. Patient seen and evaluated by pulmonology who takes care of him. Patient with terminal COPD. He uses home oxygen and is on chronic steroids. Prior to discharge patient had new onset atrial fibrillation. This was likely related to the Levaquin. Levaquin was discontinued. Case discussed at length with cardiology and pulmonology. Patient was started on diltiazem. Patient high risk for bleeding therefore chronic anti coalition therapy was not recommended. At discharge patient will continue with doxycycline 100 mg 1 pill twice daily for 7 days. Patient will continue with COPD medication-Trelegy 1 puff daily, Theodur 300 mg daily. Albuterol has been discontinued in place of Xopenex due to the atrial fibrillation. At discharge he will continue with Xopenex 1 unit dose 3 times a day as needed for shortness of breath and albuterol 1 unit dose 3 times a day as needed for shortness of breath. Patient will also continue with prednisone 20 mg 1 pill twice daily for 5 days then 20 mg 1 pill daily for 5 days then continue with his regular regimen of 10 mg daily. Also Patient will continue with home oxygen to maintain sats above 90%. Prior to discharge advanced directives addressed in detail with family present. Patient wishes to be DNR. Patient is very aware of his current and chronic condition. He does not want any major workup done in the future. This had been addressed by pulmonology. Pulmonology is aware and understands. Patient may consider hospice in the future if his condition continues to decline. Due to his onset atrial fibrillation. Case discussed at length with cardiology and pulmonology. Patient was adament on wanting to go home as soon as possible. Rate better controlled around 110. Patient did not want any further workup. Atrial fibrillation likely related to Levaquin. This has been discontinued. Cardiology recommended calcium channel kurt. Patient was placed on diltiazem. Improved rate control noted with medication. Chronic anti coagulation therapy was not recommended due to his risk for fall and bleeding. At discharge he will continue with diltiazem 120 mg daily and aspirin 81 mg daily. Patient may follow up with cardiology as an outpatient to further monitor. CT scan did reveal right upper lobe opacity likely mass. This has been chronic and addressed by pulmonary in the past. Patient does not want any further work up for this as he would not want any future treatment if this was malignant in nature. Pulmonology plans to recheck CT scan in the future. Patient with underlying hypertension. As mentioned above, patient now on diltiazem. Lisinopril has been discontinued in place of diltiazem. At discharge patient will continue with diltiazem 120 mg daily. Further adjustment in medication by his PCP or pulmonology. Patient with chronic leukocytosis. Previous lab reviewed. Peripheral smear sent out for further analysis. Case discussed at length with pulmonology. Will recommend patient to establish care with Hematology/Oncology for further evaluation and possible workup. This may require bone marrow biopsy. Patient will consider this but may not want any further workup. He is comfortable with his current state of chronic conditions and state of mind. Patient with underlying GERD. Patient may continue with his current medication. Patient with chronic pain. Patient will continue with hydrocodone. Vital Signs/Physical Exam: Temp Pulse Resp BP Pulse Ox 98.7 F 125 H 18 139/88 95 09/07/19 12:00 09/07/19 12:00 09/07/19 12:00 09/07/19 12:00 09/07/19 12:00 General: Alert, In no apparent distress, Oriented x3, Cooperative HEENT: Atraumatic Neck: Supple Respiratory: Expiratory wheezes (Bilateral) Cardiovascular: Irregular heart rate/rhythm (Atrial fibrillation rate around 110 ) Gastrointestinal: Normal bowel sounds, Soft and benign, Non-distended, No tenderness, No masses, No rebound, No guarding Musculoskeletal: No erythema, No tenderness, No warmth Integumentary: No tenderness/swelling, No erythema, No warmth, No cyanosis Neurological: Normal speech, Normal strength at 5/5 x4 extr, Normal tone, Normal affect Laboratory Data at Discharge: WBC 30.1 K/uL (4.3-10.9) H* 09/07/19 05:14 Hgb 13.5 g/dL (13.6-17.9) L 09/07/19 05:14 Hct 39.1 % (39.6-49.0) L D 09/07/19 05:14 Plt Count 315 K/uL (152-406) 09/07/19 05:14 PT 12.9 SECONDS (9.5-12.5) H 09/05/19 22:43 INR 1.10 09/05/19 22:43 Sodium 141 mmol/L (136-145) 09/07/19 05:14 Potassium 3.9 mmol/L (3.5-5.1) 09/07/19 05:14 BUN 23 mg/dL (7-18) H 09/07/19 05:14 Creatinine 1.27 mg/dL (0.55-1.3) 09/07/19 05:14 Glucose 146 mg/dL (74-106) H 09/07/19 05:14 Phosphorus 2.9 mg/dL (2.5-4.9) 09/07/19 05:14 Magnesium 2.0 mg/dL (1.8-2.4) 09/07/19 05:14 Total Bilirubin 0.6 mg/dL (0.2-1.0) 09/05/19 22:43 AST 15 U/L (15-37) 09/05/19 22:43 ALT 13 U/L (12-78) 09/05/19 22:43 Alkaline Phosphatase 74 U/L (45-117) 09/05/19 22:43 Triglycerides 117 mg/dL (<150) 09/07/19 05:14 Cholesterol 159 mg/dL (<200) 09/07/19 05:14 HDL Cholesterol 45 mg/dL (40-60) 09/07/19 05:14 Cholesterol/HDL Ratio 3.53 09/07/19 05:14 Home Medications: Hydrocodone 7.5/APAP 325 [[place] 7.5/325 mg*] 1 tab PO TID 09/06/19 Mirtazapine [Remeron*] 1 tab PO BEDTIME 09/06/19 Pantoprazole Sodium 1 tab PO [id number] 09/06/19 Theophylline [Andriy-Dur*] 300 mg PO DAILY 09/06/19 predniSONE [Deltasone*] 1 tab PO DAILY 09/06/19 Aspirin [Aspirin EC 81 MG] 81 mg PO DAILY #90 tablet. 09/07/19 Diltiazem Cd [Cardizem Cd*] 120 mg PO DAILY #30 cap 09/07/19 Doxycycline Hyclate 100 mg PO BID #14 tablet 09/07/19 Fluticasone/Umeclidin/Vilanter [Trelegy Ellipta 100-62.5-25] 1 puff IH DAILY #1 blst.w.dev 09/07/19 Ipratropium Neb [Atrovent*] 0.5 mg NEB TID PRN #90 amp 09/07/19 Levalbuterol HCl [Xopenex] 0.63 mg IH TID PRN #90 vial.neb 09/07/19 predniSONE [Prednisone*] 20 mg PO SEECOM #15 tab 09/07/19 New Medications: Aspirin [Aspirin EC 81 MG] 81 mg PO DAILY #90 tablet. Diltiazem Cd [Cardizem Cd*] 120 mg PO DAILY #30 cap Doxycycline Hyclate 100 mg PO BID #14 tablet Fluticasone/Umeclidin/Vilanter [Trelegy Ellipta 100-62.5-25] 1 puff IH DAILY #1 blst.w.dev Ipratropium Neb [Atrovent*] 0.5 mg NEB TID PRN #90 amp PRN Reason: Shortness Of Breath Levalbuterol HCl [Xopenex] 0.63 mg IH TID PRN #90 vial.neb PRN Reason: Shortness Of Breath predniSONE [Prednisone*] 20 mg PO SEECOM #15 tab Patient Discharge Instructions: 1. Patient will need a follow up with pulmonology within 1 week. 2. Patient presented with acute encephalopathy likely related to acute on chronic respiratory failure with hypoxia secondary to COPD exacerbation and superimposed bilateral pneumonia. The patient was admitted and provided IV antibiotic therapy with COPD medication. Responded well to medical therapy. Patient seen and evaluated by pulmonology who takes care of him. Patient with terminal COPD. He uses home oxygen and is on chronic steroids. Prior to discharge patient had new onset atrial fibrillation. This was likely related to the Levaquin. Levaquin was discontinued. Case discussed at length with cardiology and pulmonology. Patient was started on diltiazem. Patient high risk for bleeding therefore chronic anti coalition therapy was not recommended. At discharge patient will continue with doxycycline 100 mg 1 pill twice daily for 7 days. Patient will continue with COPD medication-Trelegy 1 puff daily, Theodur 300 mg daily. Albuterol has been discontinued in place of Xopenex due to the atrial fibrillation. At discharge he will continue with Xopenex 1 unit dose 3 times a day as needed for shortness of breath and albuterol 1 unit dose 3 times a day as needed for shortness of breath. Patient will also continue with prednisone 20 mg 1 pill twice daily for 5 days then 20 mg 1 pill daily for 5 days then continue with his regular regimen of 10 mg daily. Also Patient will continue with home oxygen to maintain sats above 90%. Prior to discharge advanced directives addressed in detail with family present. Patient wishes to be DNR. Patient is very aware of his current and chronic condition. He does not want any major workup done in the future. This had been addressed by pulmonology. Pulmonology is aware and understands. Patient may consider hospice in the future if his condition continues to decline. 3. Due to his onset atrial fibrillation. Case discussed at length with cardiology and pulmonology. Patient was adament on wanting to go home as soon as possible. Rate better controlled around 110. Patient did not want any further workup. Atrial fibrillation likely related to Levaquin. This has been discontinued. Cardiology recommended calcium channel kurt. Patient was placed on diltiazem. Improved rate control noted with medication. Chronic anti coagulation therapy was not recommended due to his risk for fall and bleeding. At discharge he will continue with diltiazem 120 mg daily and aspirin 81 mg daily. Patient may follow up with cardiology as an outpatient to further monitor. 4. CT scan did reveal right upper lobe opacity likely mass. This has been chronic and addressed by pulmonary in the past. Patient does not want any further work up for this as he would not want any future treatment if this was malignant in nature. Pulmonology plans to recheck CT scan in the future. 5. Patient with underlying hypertension. As mentioned above, patient now on diltiazem. Lisinopril has been discontinued in place of diltiazem. At discharge patient will continue with diltiazem 120 mg daily. Further adjustment in medication by his PCP or pulmonology. 6. Patient with chronic leukocytosis. Previous lab reviewed. Peripheral smear sent out for further analysis. Case discussed at length with pulmonology. Will recommend patient to establish care with Hematology/Oncology for further evaluation and possible workup. This may require bone marrow biopsy. Patient will consider this but may not want any further workup. He is comfortable with his current state of chronic conditions and state of mind. 6. Patient with underlying GERD. Patient may continue with his current medication. 7. Patient with chronic pain. Patient will continue with hydrocodone. Diet: AHA Activity: Fall precautions Time spent managing pt's care (in minutes): 55
--- NOTE | 2019-09-07 16:17 | CON ---
History Of Present Illness: Mr. Anand is 73. He has been in the hospital because of exacerbation o f obstructive lung disease. He now seems to be getting better. He has been treated with bronchodila tors and antibiotics, uses oxygen at home. Just before going home, he went into atrial fibrillation. He also has a mass in the right upper lobe and I believe the plan is not to try and biopsy the mass . I think the patient has been made DNR just on the basis and how bad his COPD is. Mr. Anand says what happened today happens very frequently at home, several times a week. It does not bother him. He feels his heart rate go up. He feels it is irregular. He never decided to ask a doctor to see wh at was. On telemetry, it is atrial fibrillation. He has been in sinus rhythm the whole time since b eitori here. He has a history of obstructive lung disease, tobacco abuse, hypertension, fibromyalgia, emphysema, pulmonary fibrosis, knee surgery, and now pulmonary mass that is felt most likely to be a malignancy. He has an official do not attempt resuscitation status. Physical Examination: General: He appears to be his stated age of 73 or older. 5 feet 11 inches, 139 pounds. Lungs: Reveal all bronchial type breath sounds. There is no wheezing. Heart: Irregularly irregular. It is going about 120 beats per minute. His blood pressure is 117/83 minutes. He says this happened so much, long ago quit worrying about it. The patient would not be a good candidate to attempt to anticoagulate. Medications: His outpatient medications have been prednisone, theophylline, lisinopril, fluticasone, hydrocodone, Remeron, Protonix, albuterol. Impression: We could probably help Mr. Anand by giving him long-acting Cardizem and when he goes in to his atrial fibrillation, he would not be going as fast or be bothered by it. Cardizem CD 120 has been started. I would not engage in a program to try and maintain sinus rhythm nor program of antico agulation, but rate control when he is in atrial fibrillation might be worth trying. He is certainly not disturbed much by it, so the Cardizem causes more problems than it helps such as low blood press ure or other symptoms, will just let him fibrillate from time to time. He seems very comfortable wit h it. PATRICIA/SENA Voice ID: [id number] Report ID: [id number]
[2019-09-07] MEDS ORDERED: METOPROLOL TAR 25 MG TAB PO SCH (18:00)
[2019-09-07] MEDS ORDERED: DOXYCYCLINE 100 MG CAP PO SCH (21:00)
[2019-09-08] MEDS ORDERED: Levofloxacin 750mg IV 750 MG/150 ML BAG IV SCH (03:00)
--- NOTE | 2019-09-08 05:16 | EKG ---
Test Date: 2019-09-07 Test Time: 11:51:40 Wedding Planner: NAIMA MEASUREMENT RESULTS: Intervals: Rate: 125 NE: QRSD: 80 QT: 318 QTc: 458 [place]: P: NE: QRS: 85 T: -27 INTERPRETIVE STATEMENTS: Atrial fibrillation with rapid ventricular response Nonspecific ST abnormality, probably digitalis effect Abnormal QRS-T angle, consider primary T wave abnormality Abnormal ECG Compared to ECG 09/07/2019 09:50:30 T-wave abnormality now present ST (T wave) deviation still present Electronically Signed On 09-08-19 05:15:03 CDT by Ean Mohan
[2019-09-08] MEDS ORDERED: DILTIAZEM HCL 120 MG SR CAP PO SCH (09:00)
== END 2019-09-07 15:55 | disposition home or self-care (01) | DRG 193 ==
LOC: ER 22:21 → ERHOLD 09-06 02:05 → 2ND 09-06 02:23
PROVIDERS: ADMIT Internal Medicine; ATTEND Family Medicine
DX: J18.1 Lobar pneumonia, unspecified organism (principal); J96.21 Acute and chronic respiratory failure with hypoxia; J44.1 Chronic obstructive pulmonary disease with (acute) exacerbation; G93.40 Encephalopathy, unspecified; I10 Essential (primary) hypertension; D72.829 Elevated white blood cell count, unspecified; R91.8 Other nonspecific abnormal finding of lung field; Z99.81 Dependence on supplemental oxygen; Z79.52 Long term (current) use of systemic steroids; M79.7 Fibromyalgia
CPT/HCPCS: 36415; 71045; 71260; 80048; 80061; 80076; 81003; 81015; 82805; 83605; 83735; 83880; 84100; 84145; 84484; 85025; 85610; 87040; 93005; 94640; 96365; 96375; 97112; 97116; 97161; 99285; J1650; J2920; J2930; J7030; J7512; J7605; Q9967

== ENCOUNTER 2019-09-10 20:55 | Observation (INO) | payer OTHER, MEDICARE ==
[2019-09-10 21:53] LABS: Absolute Lymphocytes (CBC) 2.6 K/uL (0.7-4.9); Basophils % 0.3 % (0-1.3); Hematocrit 36.8 % (39.6-49.0); Lymphocytes % 20.6 % (15.3-44.8); MPV 7.4 fL (7.6-11.3); RBC Red Blood Cell Count 3.91 M/uL (4.33-5.43)
[2019-09-10 22:12] LABS: ALT/SGPT 18 U/L (12-78); AST/SGOT 16 U/L (15-37); Alkaline Phosphatase 45 U/L (45-117); BUN Blood Urea Nitrogen 21 mg/dL (7-18); Bicarbonate 38 mmol/L (21-32); Bilirubin Direct < 0.1 mg/dL (0-0.2); Bilirubin Total 0.2 mg/dL (0.2-1.0); Glucose Level 100 mg/dL (74-106); Magnesium 1.9 mg/dL (1.8-2.4); NT PRO-BNP 1222 pg/mL (<450); Potassium 3.2 mmol/L (3.5-5.1); Protein, Total 5.6 g/dL (6.4-8.2); Sodium Level 143 mmol/L (136-145); Troponin (Emerg Dept Use Only) 0.13 ng/mL (0.0-0.045)
[2019-09-10 22:17] LABS: Protime INR 1.08
[2019-09-10 22:28] LABS: Urine Blood TRACE (NEG); Urine Glucose NEGATIVE (NEG); Urine Protein 1+ (NEG); Urine Specific Gravity 1.015 (1.005-1.030); Urine pH 8.5 (5.0-7.0)
--- NOTE | 2019-09-10 23:12 | EDPHYS ---
Physician Documentation [facility] Name: Jason Anand Sr Age: 73 yrs Sex: Male : 1945 Arrival Date: 09/10/2019 Time: 21:11 Bed 25 Private MD: ED Physician Lee Lane HPI: 09/10 23:04 This 73 yrs old Male presents to ER via EMS with complaints of Blood Pressure roby Problem. 23:04 The patient has shortness of breath at rest, with light activity. Onset: The roby symptoms/episode began/occurred 1 day(s) ago. Duration: The symptoms are continuous, and are unchanged since they started. The patient's shortness of breath has no apparent modifying factors. The patient or guardian reports chest pain that is located primarily in the. Historical: - Allergies: 21:16 PENICILLINS; lp1 - Home Meds: 21:16 benazepril-hydrochlorothiazide 20-12.5 mg Oral tab 1 tab once daily [Active]; lp1 lisinopril 20 mg Oral tab 1 tab once daily [Active]; mirtazapine 15 mg Oral tab 1 tab once daily [Active]; pantoprazole 40 mg Oral TbEC 1 tab once daily [Active]; prednisone 20 mg Oral tab 1 tab 2 times per day [Active]; prednisone 10 mg Oral tab once daily [Active]; theophylline 300 mg Oral Tb12 1 tab every 12 hours [Active]; - PMHx: 21:16 COPD; Fibromyalgia; Hypertension; lp1 - PSHx: 21:16 Knee surgery; lp1 - Immunization history:: Adult Immunizations up to date. - Social history:: Smoking status: Patient uses tobacco products, denies chronic smoking, but will smoke occasionally. - Ebola Screening: : No symptoms or risks identified at this time. ROS: 23:05 Constitutional: Negative for fever, chills, and weight loss, Eyes: Negative for injury, roby pain, redness, and discharge, ENT: Negative for injury, pain, and discharge, Neck: Negative for injury, pain, and swelling, Cardiovascular: Negative for chest pain, palpitations, and edema, Abdomen/GI: Negative for abdominal pain, nausea, vomiting, diarrhea, and constipation, Back: Negative for injury and pain, : Negative for injury, bleeding, discharge, and swelling, MS/Extremity: Negative for injury and deformity, Skin: Negative for injury, rash, and discoloration, Neuro: Negative for headache, weakness, numbness, tingling, and seizure, Psych: Negative for depression, anxiety, suicide ideation, homicidal ideation, and hallucinations, Allergy/Immunology: Negative for hives, rash, and allergies, Endocrine: Negative for neck swelling, polydipsia, polyuria, polyphagia, and marked weight changes, Hematologic/Lymphatic: Negative for swollen nodes, abnormal bleeding, and unusual bruising. 23:05 Respiratory: Positive for cough, shortness of breath, at rest. Exam: 23:05 Constitutional: This is a well developed, well nourished patient who is awake, alert, roby and in no acute distress. Head/Face: Normocephalic, atraumatic. Eyes: Pupils equal round and reactive to light, extra-ocular motions intact. Lids and lashes normal. Conjunctiva and sclera are non-icteric and not injected. Cornea within normal limits. Periorbital areas with no swelling, redness, or edema. ENT: Nares patent. No nasal discharge, no septal abnormalities noted. Tympanic membranes are normal and external auditory canals are clear. Oropharynx with no redness, swelling, or masses, exudates, or evidence of obstruction, uvula midline. Mucous membranes moist. Neck: Trachea midline, no thyromegaly or masses palpated, and no cervical lymphadenopathy. Supple, full range of motion without nuchal rigidity, or vertebral point tenderness. No Meningismus. Chest/axilla: Normal chest wall appearance and motion. Nontender with no deformity. No lesions are appreciated. Cardiovascular: Regular rate and rhythm with a normal S1 and S2. No gallops, murmurs, or rubs. Normal PMI, no JVD. No pulse deficits. Abdomen/GI: Soft, non-tender, with normal bowel sounds. No distension or tympany. No guarding or rebound. No evidence of tenderness throughout. Back: No spinal tenderness. No costovertebral tenderness. Full range of motion. Male : Normal genitalia with no discharge or lesions. Skin: Warm, dry with normal turgor. Normal color with no rashes, no lesions, and no evidence of cellulitis. MS/ Extremity: Pulses equal, no cyanosis. Neurovascular intact. Full, normal range of motion. Neuro: Awake and alert, GCS 15, oriented to person, place, time, and situation. Cranial nerves II-XII grossly intact. Motor strength 5/5 in all extremities. Sensory grossly intact. Cerebellar exam normal. Normal gait. Psych: Awake, alert, with orientation to person, place and time. Behavior, mood, and affect are within normal limits. 23:05 Respiratory: mild respiratory distress is noted, Respirations: labored breathing, that is mild, Breath sounds: decreased breath sounds, that are moderate, rhonchi, that are mild, are scattered, stridor, is not appreciated, + upper airway congestion. Vital Signs: 21:12 BP 165 / 74; Pulse 90; Resp 20; Pulse Ox 94% on 3 lpm NC; Weight 61.23 kg; Height 5 ft. lp1 11 in. (180.34 cm); Pain 0/10; 21:30 BP 128 / 78; Pulse 68; Resp 16; Pulse Ox 99% on R/A; tr5 22:30 BP 156 / 83 RA (auto/reg); Pulse 58; Pulse Ox 99% on 3 lpm NC; jp3 23:44 BP 184 / 99; Pulse 69; Resp 19; Pulse Ox 100% on R/A; tr5 21:12 Body Mass Index 18.83 (61.23 kg, 180.34 cm) lp1 21:12 Patient uses home O2 at 3L lp1 MDM: 21:28 Patient medically screened. [facility] 23:05 Data reviewed: vital signs, nurses notes, lab test result(s), EKG, radiologic studies, roby plain films. 09/10 21:38 Order name: Basic Metabolic Panel; Complete Time: 23:00 [facility] 09/10 21:38 Order name: CBC with Diff; Complete Time: 23:00 [facility] 09/10 21:38 Order name: LFT's; Complete Time: 23:00 [facility] 09/10 21:38 Order name: Magnesium; Complete Time: 23:00 [facility] 09/10 21:38 Order name: NT PRO-BNP; Complete Time: 23:00 [facility] 09/10 21:38 Order name: PT-INR; Complete Time: 23:00 [facility] 09/10 21:38 Order name: Troponin (emerg Dept Use Only); Complete Time: 23:00 [facility] 09/10 21:38 Order name: XRAY Chest (1 view) [facility] 09/10 22:21 Order name: Urine Dipstick--Ancillary (enter results); Complete Time: 23:00 [facility] 09/10 21:38 Order name: EKG; Complete Time: 21:39 [facility] 09/10 21:38 Order name: Cardiac monitoring; Complete Time: 21:54 [facility] 09/10 21:38 Order name: EKG - Nurse/Tech; Complete Time: 22:00 [facility] 09/10 21:38 Order name: IV Saline Lock; Complete Time: 22:00 [facility] 09/10 21:38 Order name: Labs collected and sent; Complete Time: 22:00 [facility] 09/10 21:38 Order name: O2 Per Protocol; Complete Time: 22:00 [facility] 09/10 21:38 Order name: O2 Sat Monitoring; Complete Time: 22:00 [facility] 09/10 21:39 Order name: Urine Dipstick-Ancillary (obtain specimen); Complete Time: 23:00 [facility] Administered Medications: 23:31 Drug: AtroVENT Aerosol 0.5 mg Route: Inhalation; tr5 23:32 Drug: Lisinopril 20 mg Route: PO; tr5 23:32 Drug: Pepcid 20 mg Route: IVP; Site: left antecubital; tr5 23:32 Drug: levofloxacin 500 mg Volume: 100 ml; Route: IVPB; Infused Over: 60 mins; Site: tr5 left antecubital; 23:32 Drug: Xopenex 1.25 mg Route: Inhalation; tr5 23:35 Drug: SOLU-Medrol 125 mg Route: IVP; Site: left antecubital; tr5 23:40 Drug: Aspirin Chewable Tablet 162 mg Route: PO; tr5 23:41 Drug: Potassium Effervescent Tablet 25 mEq Route: PO; tr5 23:43 Not Given (Patient Refused): Lovenox 60 mg Sub-Q once tr5 Disposition: 09/10/19 23:11 Hospitalization ordered by Evert Ballesteros for Inpatient Admission. Preliminary diagnosis are Chronic obstructive pulmonary disease with (acute) exacerbation, Essential (primary) hypertension, Hypokalemia. - Bed requested for Telemetry/MedSurg (Inpatient). - Status is Inpatient Admission. tr5 - Condition is Fair. - Problem is new. - Symptoms have improved. UTI on Admission? No Signatures: Dispatcher [employer] EDLee Wilde MD MD cha Pena, Laura RN RN lp1 Lilliana Lopez, JEREMY RN cg Froy Lau RN RN tr5 Corrections: (The following items were deleted from the chart) 09/11 00:17 09/10 23:11 Hospitalization Ordered by Evert Ballesteros for Inpatient Admission. cg Preliminary diagnosis is Chronic obstructive pulmonary disease with (acute) exacerbation; Essential (primary) hypertension; Hypokalemia. Bed requested for Telemetry/MedSurg (Inpatient). Status is Inpatient Admission. Condition is Fair. Problem is new. Symptoms have improved. UTI on Admission? No. roby 09/11 01:00 00:17 09/10/2019 23:11 Hospitalization Ordered by Evert Ballesteros for Inpatient tr5 Admission. Preliminary diagnosis is Chronic obstructive pulmonary disease with (acute) exacerbation; Essential (primary) hypertension; Hypokalemia. Bed requested for Telemetry/MedSurg (Inpatient). Status is Inpatient Admission. Condition is Fair. Problem is new. Symptoms have improved. UTI on Admission? No. cg
--- NOTE | 2019-09-10 23:12 | ER ---
Nurse's Notes [facility] Name: Jason Anand Sr Age: 73 yrs Sex: Male : 1945 Arrival Date: 09/10/2019 Time: 21:11 Bed 25 Private MD: Diagnosis: Chronic obstructive pulmonary disease with (acute) exacerbation;Essential (primary) hypertension;Hypokalemia Presentation: 09/10 21:11 Presenting complaint: EMS states: Called for patient with high blood pressure, 200/130; lp1 denies any chest pain, shortness of breath; States routinely checks BP and it has been high all day today. Transition of care: patient was not received from another setting of care. Onset of symptoms was September 10, 2019. Risk Assessment: Do you want to hurt yourself or someone else? Patient reports no desire to harm self or others. Initial Sepsis Screen: Does the patient meet any 2 criteria? No. Patient's initial sepsis screen is negative. Does the patient have a suspected source of infection? No. Patient's initial sepsis screen is negative. Care prior to arrival: IV initiated. 20 GA, in the left wrist. 21:11 Method Of Arrival: EMS: [facility] 1 21:11 Acuity: CARLOS 3 lp1 Historical: - Allergies: 21:16 PENICILLINS; lp1 - Home Meds: 21:16 benazepril-hydrochlorothiazide 20-12.5 mg Oral tab 1 tab once daily [Active]; lp1 lisinopril 20 mg Oral tab 1 tab once daily [Active]; mirtazapine 15 mg Oral tab 1 tab once daily [Active]; pantoprazole 40 mg Oral TbEC 1 tab once daily [Active]; prednisone 20 mg Oral tab 1 tab 2 times per day [Active]; prednisone 10 mg Oral tab once daily [Active]; theophylline 300 mg Oral Tb12 1 tab every 12 hours [Active]; - PMHx: 21:16 COPD; Fibromyalgia; Hypertension; lp1 - PSHx: 21:16 Knee surgery; lp1 - Immunization history:: Adult Immunizations up to date. - Social history:: Smoking status: Patient uses tobacco products, denies chronic smoking, but will smoke occasionally. - Ebola Screening: : No symptoms or risks identified at this time. Screenin:16 Abuse screen: Denies threats or abuse. Denies injuries from another. Nutritional lp1 screening: No deficits noted. Tuberculosis screening: No symptoms or risk factors identified. 21:45 Fall Risk None identified. tr5 Assessment: 21:45 General: Appears in no apparent distress. Behavior is calm, cooperative, appropriate tr5 for age. Pain: Denies pain. Neuro: Level of Consciousness is awake, alert, obeys commands, Oriented to person, place, time, Indirect Sales Representative are equal bilaterally Moves all extremities. Cardiovascular: Heart tones present Capillary refill < 3 seconds Pulses are all present. Edema is absent. Respiratory: Airway is patent Respiratory effort is even, unlabored, Respiratory pattern is regular, symmetrical. GI: No signs and/or symptoms were reported involving the gastrointestinal system. : No signs and/or symptoms were reported regarding the genitourinary system. EENT: No signs and/or symptoms were reported regarding the EENT system. Derm: No signs and/or symptoms reported regarding the dermatologic system. Musculoskeletal: No signs and/or symptoms reported regarding the musculoskeletal system. 23:44 Reassessment: Patient appears in no apparent distress at this time. Patient is alert, tr5 oriented x 3, equal unlabored respirations, skin warm/dry/pink. Vital Signs: 21:12 BP 165 / 74; Pulse 90; Resp 20; Pulse Ox 94% on 3 lpm NC; Weight 61.23 kg; Height 5 ft. lp1 11 in. (180.34 cm); Pain 0/10; 21:30 BP 128 / 78; Pulse 68; Resp 16; Pulse Ox 99% on R/A; tr5 22:30 BP 156 / 83 RA (auto/reg); Pulse 58; Pulse Ox 99% on 3 lpm NC; jp3 23:44 BP 184 / 99; Pulse 69; Resp 19; Pulse Ox 100% on R/A; tr5 21:12 Body Mass Index 18.83 (61.23 kg, 180.34 cm) lp1 21:12 Patient uses home O2 at 3L lp1 ED Course: 21:11 Patient arrived in ED. lp1 21:12 Triage completed. lp1 21:13 Arm band placed on. lp1 21:[address] MD is Attending Physician. [facility] 21:30 Froy Lau RN is Primary Nurse. tr5 21:32 Patient maintains SpO2 saturation greater than 95% on room air. jp3 21:33 Bed in low position. Call light in reach. Side rails up X 1. Side rails up X2. Warm jp3 blanket given. Diet: Patient given water. Tolerated well. Pulse ox on. NIBP on. 21:45 Inserted saline lock: 20 gauge in left wrist, using aseptic technique. tr5 22:00 Initial lab(s) drawn, by me, sent to lab. tr5 22:12 X-ray completed. Portable x-ray completed in exam room. Patient tolerated procedure mh1 well. 22:13 XRAY Chest (1 view) In Process Unspecified. EDMS 22:15 Lab(s) recollected, by me, sent to lab. EKG done, by ED staff, reviewed by Lee Lane MD. 22:35 IV is patent, with fluids infusing freely, with good blood return, Patient had blood jp3 leaking from IV site. Coban and Tegaderm applied from EMS removed. IV site was cleaned with moist towlette and ChloraPrep swab, dried with sterile gauze. New Tegaderm applied, slight wrapped with fresh Coban. IV flushed freely with good blood return. . 23:07 Evert Ballesteros is Hospitalizing Provider. [facility] 23:10 Awaiting bed assignment. tr5 09/11 00:45 No provider procedures requiring assistance completed. Patient admitted, IV remains in tr5 place. Administered Medications: 09/10 23:31 Drug: AtroVENT Aerosol 0.5 mg Route: Inhalation; tr5 23:32 Drug: Lisinopril 20 mg Route: PO; tr5 23:32 Drug: Pepcid 20 mg Route: IVP; Site: left antecubital; tr5 23:32 Drug: levofloxacin 500 mg Volume: 100 ml; Route: IVPB; Infused Over: 60 mins; Site: tr5 left antecubital; 23:32 Drug: Xopenex 1.25 mg Route: Inhalation; tr5 23:35 Drug: SOLU-Medrol 125 mg Route: IVP; Site: left antecubital; tr5 23:40 Drug: Aspirin Chewable Tablet 162 mg Route: PO; tr5 23:41 Drug: Potassium Effervescent Tablet 25 mEq Route: PO; tr5 23:43 Not Given (Patient Refused): Lovenox 60 mg Sub-Q once tr5 Outcome: 23:11 Decision to Hospitalize by Provider. roby 09/11 00:46 Admitted to Med/surg accompanied by tech, via wheelchair, with chart. tr5 Condition: stable Instructed on the need for admit. 01:00 Patient left the ED. tr5 Signatures: Dispatcher [employer] EDLee Wilde MD MD cha Harvey, Martha 1 Tamiko Robbins, JEREMY RN 1 Bora Glover 3 Froy Lau, JEREMY RN tr5
[2019-09-10] MEDS ORDERED: METHYLPREDNISOLONE 125 MG INJ ONE (23:16)
[2019-09-10] MEDS ORDERED: POTASSIUM 25 MEQ EFFERV TAB ONE (23:17)
[2019-09-10] MEDS ORDERED: IPRATROPIUM BROM 0.5MG/2.5ML ONE (23:17)
[2019-09-10] MEDS ORDERED: Levofloxacin500mg IV 500 MG/100 ML BAG IV ONE (23:17)
[2019-09-10] MEDS ORDERED: ASPIRIN 81 MG CHEWABLE TABLET ONE (23:17)
[2019-09-10] MEDS ORDERED: LEVALBUTEROL 1.25 MG/3 ML NEB ONE (23:17)
[2019-09-10] MEDS ORDERED: LISINOPRIL 20 MG TAB ONE (23:17)
[2019-09-10] MEDS ORDERED: FAMOTIDINE 20 MG/2 ML VIAL IV ONE (23:18)
[2019-09-10] MEDS ORDERED: ENOXAPARIN 60 MG/0.6 ML SQ ONE (23:18)
--- NOTE | 2019-09-10 23:53 | P.HP ---
Certification for Inpatient Patient admitted to: Observation With expected LOS: <2 Midnights Practitioner: I am a practitioner with admitting privileges, knowledge of patient current condition, hospital course, and medical plan of care. Services: Services provided to patient in accordance with Admission requirements found in Title 42 Section 412.3 of the Code of Federal Regulations Patient History Date of Service: 09/11/19 Reason for admission: Elevated blood pressure History of Present Illness: 73-year-old man with a history of advanced COPD, lung mass, chronic respiratory failure on home oxygen was brought to the emergency department by EMS due to severely elevated blood pressure. Daughter noticed patient blood pressure was elevated all day, with systolic up to 200s. She called patient's PCP and was she adviced to send patient to the emergency department for evaluation. She called EMS to bring patient to the ED. His blood pressure was up to 245/131 as recorded by EMS. Patient denied any new complaint. He denied any increase in shortness of breath or wheezing or chest pain. He mentioned he was feeling better than before with his new medications and bronchodilator regimen. In the ED, patient noted to be on his baseline oxygen, initial troponin is elevated to 0.13, chest x-ray demonstrated no acute findings. He took his Cardizem today. He was also given lisinopril prior to arrival to the ED. His systolic blood pressure during my examination was 184. Patient is placed under observation for further management of accelerated hypertension. Allergies Penicillins Allergy (Verified 09/06/19 02:57) Itching/Hives/Rash Home Medications: Hydrocodone 7.5/APAP 325 [[place] 7.5/325 mg*] 1 tab PO TID 09/06/19 Mirtazapine [Remeron*] 1 tab PO BEDTIME 09/06/19 Pantoprazole Sodium 1 tab PO [id number] 09/06/19 Theophylline [Andriy-Dur*] 300 mg PO DAILY 09/06/19 predniSONE [Deltasone*] 1 tab PO DAILY 09/06/19 Aspirin [Aspirin EC 81 MG] 81 mg PO DAILY #90 tablet. 09/07/19 Diltiazem Cd [Cardizem Cd*] 120 mg PO DAILY #30 cap 09/07/19 Doxycycline Hyclate 100 mg PO BID #14 tablet 09/07/19 Fluticasone/Umeclidin/Vilanter [Trelegy Ellipta 100-62.5-25] 1 puff IH DAILY #1 blst.w.dev 09/07/19 Ipratropium Neb [Atrovent*] 0.5 mg NEB TID PRN #90 amp 09/07/19 Levalbuterol HCl [Xopenex] 0.63 mg IH TID PRN #90 vial.neb 09/07/19 predniSONE [Prednisone*] 20 mg PO SEECOM #15 tab 09/07/19 - Past Medical/Surgical History Diabetic: No -: COPD -: HTN -: tobacco abuse -: fibromyalgia -: emphysema -: Atypical mycobacterium infection -: knee sx - Family History Father -: Cancer Mother Notes: pneumonia - Social History Alcohol use: No CD- Drugs: No Caffeine use: Yes Review of Systems Other: General: No fever, no malaise, no unintentional weight loss. Eyes: No eye discharge, CVS: No palpitation, no lightheadedness. GI: No abdominal pain, no nausea no vomit, no constipation, no diarrhea. Genitourinary: No dysuria, no urinary frequency, no incontinence, no hematuria. Musculoskeletal: No joint pains, or joint swelling, no gait instability. Neurology: No headache, no asymmetric, weakness, no problem with swallowing. Except as documented, all other systems reviewed and negative. Physical Examination - Physical Exam General: Alert, In no apparent distress, Oriented x3 HEENT: Normocephalic, PERRLA, Mucous membr. moist/pink Neck: Supple, JVD not distended, No Thyromegaly Respiratory: Clear to auscultation bilaterally, Diminished Cardiovascular: No edema, Normal pulses, Regular rate/rhythm, Normal S1 S2, No murmurs Capillary refill: <2 Seconds Gastrointestinal: Normal bowel sounds, Soft and benign, Non-distended, No tenderness Musculoskeletal: No swelling, No erythema Integumentary: No rashes, No erythema Neurological: Normal strength at 5/5 x4 extr, Cranial nerves 3-12 intact - Studies Laboratory Data (last 24 hrs) 09/10/19 22:00: PT 12.7 H, INR 1.08 09/10/19 21:45: WBC 12.7 H D, Hgb 12.5 L, Hct 36.8 L, Plt Count 313 09/10/19 21:45: Sodium 143, Potassium 3.2 L, BUN 21 H, Creatinine 1.13, Glucose 100, Magnesium 1.9, Total Bilirubin 0.2, AST 16, ALT 18, Alkaline Phosphatase 45 Assessment and Plan - Problems (Diagnosis) (1) Accelerated hypertension Current Visit: Yes Status: Acute (2) Elevated troponin Current Visit: Yes Status: Acute (3) Lung mass Current Visit: No Status: Chronic (4) Chronic respiratory failure with hypoxia Current Visit: Yes Status: Chronic (5) Bronchiectasis Onset Date: 12/28/18 Current Visit: No Status: Chronic Qualifiers: Bronchiectasis type: uncomplicated Qualified Code(s): J47.9 - Bronchiectasis, uncomplicated - Plan Place under observation with telemetry. Continue home antihypertensives. Add Lisinopril. Target SBP of less than 140. Hydralazine IV p.r.n. for BP spikes. Elevated troponin likely secondary to demand ischemia. Low suspicion for ACS. Trend troponin Obtain echocardiogram. Continue home bronchodilator regimen Continue prednisone 20 mg daily for 2 more days and taper to maintenance of 10 mg daily. He also need to complete 3 more days of oral doxycycline prescribed from previous hospitalization for infective bronchitis/pneumonia. Titrate oxygen. - Advance Directives Does patient have a Living Will: Yes Does patient have a Durable POA for Healthcare: No
[2019-09-11 01:05] VITALS: BMI 19.3
[2019-09-11] MEDS ORDERED: ONDANSETRON 4 MG/2 ML VIAL IV PRN (01:12)
[2019-09-11] MEDS ORDERED: HYDRALAZINE HCL 20 MG/ML VIAL IV PRN ×2 (01:12→11:00)
[2019-09-11] MEDS ORDERED: ACETAMINOPHEN 500 MG TAB PO PRN (01:12)
[2019-09-11] MEDS: IPRATROPIUM BROM 0.5MG/2.5ML NEB SCH ×2 (01:18→05:50)
[2019-09-11 02:06] LABS: Magnesium 2.2 mg/dL (1.8-2.4); Potassium 3.6 mmol/L (3.5-5.1)
[2019-09-11 02:11] LABS: Thyroid Stimulating Hormone 0.167 uIU/mL (0.360-3.740); Troponin I 0.09 ng/mL (0.0-0.045)
[2019-09-11] MEDS ORDERED: POTASS/SODIUM PHOSPHATE 1 PKT POWD.PACK PO SCH (04:00)
[2019-09-11] MEDS: POTASS/SODIUM PHOSPHATE 1 PKT POWD.PACK PO SCH ×3 (05:33→09:02)
--- NOTE | 2019-09-11 06:09 | EKG ---
Test Date: 2019-09-10 Test Time: 22:11:09 Director Product Safety: TR MEASUREMENT RESULTS: Intervals: Rate: 59 SD: 144 QRSD: 86 QT: 412 QTc: 407 [place]: P: 82 SD: 144 QRS: 83 T: 76 INTERPRETIVE STATEMENTS: Sinus bradycardia Nonspecific T wave abnormality Abnormal ECG Compared to ECG 09/07/2019 11:51:40 Atrial fibrillation no longer present ST (T wave) deviation no longer present T-wave abnormality still present Electronically Signed On 09-11-19 06:09:02 CDT by Ean Mohan
[2019-09-11] MEDS ORDERED: ENOXAPARIN 40 MG/0.4 ML SQ SCH (09:00)
[2019-09-11] MEDS ORDERED: DILTIAZEM HCL 120 MG SR CAP PO SCH (09:00)
[2019-09-11] MEDS ORDERED: PNEUMOCOCCAL VACCINE 0.5 ML IMVAC ONE (09:00)
[2019-09-11] MEDS ORDERED: LISINOPRIL 20 MG TAB PO SCH ×2 (09:00)
--- NOTE | 2019-09-11 09:49 | RAD REPORT ---
[facility] 10[facility]15 [facility] CLINICAL HISTORY: cough COMPARISON: September 06, 2019 FINDINGS: Right lower lobe opacity seen on the CT is not clearly seen on this exam. Right lateral bassam ng base is not entirely included in the field view and is not evaluated Left lung appears clear of acute infiltrate. Lungs are markedly hyperaerated The heart is normal size IMPRESSION: Marked COPD
[2019-09-11 10:40] VITALS: O2SAT 97
[2019-09-11 13:25] VITALS: BP 151/70; TEMP 98
--- NOTE | 2019-09-15 10:20 | DS ---
Date of Discharge: 09/11/2019 Discharge Diagnoses: 1.Uncontrolled hypertension. 2.Chronic obstructive pulmonary disease and emphysema. 3.Bronchiectasis. 4.Borderline troponin. Consult: None. Procedure: Chest x-ray, which showed marked COPD with right opacity, was not seen ___ from last week. History Of Present Illness: Please refer to Dr. Ballesteros's note. Hospital Course: Patient presented to the emergency room with a very high blood pressure, systolic i n the 200s, and recorded in the emergency room . Patient was given beta-kurt as well as his home medication, and he was started on hydralazine p.r.n., and his blood pressure improved. Lizette mcdonald denies any chest pain. His cardiac enzymes were trending down with troponin going down to 0.06 before discharge this morning. He denies any chest pain. He demanded to be discharged today and not staying overnight. I advised him he will need to have a stress test tomorrow morning. He needs to avoid exertion in the meantime, and in terms of his blood pressure, he will need to follow up with hi s primary care physician to adjust his blood pressure medication. In terms of his COPD and questiona ble mass on CT scan patient is going to see Dr. Franklin as outpatient. He said, he will discuss that with him and I advised him that he will need to consider biopsy if it is suspicious for cancer. His chest x-ray was unremarkable for a lung mass though. He will be continued on his medica tion from previous discharge for his COPD for 2 more days and then as well as h e continues on . Patient refused to stay overnight for echocardiogram to be done tomorrow morning. He will discharge today in stable condition. Discharged Condition: Stable. Discharged Diet: Cardiac. Discharged Followup: With Dr. Franklin tomorrow morning to discuss lung mass seen on CT scan as well as his COPD. Follow up with to adjust blood pressure medication. Follow up with our fac ility to proceed with stress test in the morning. Avoid exertion. Physical Examination: Discharge Vital Signs: Blood pressure 133/85, patient blood pressure below 150. Heart ra te is 73, temperature is 97.9, respiratory rate 18. General: He is alert and oriented x3. Does not look in any distress. HEENT: Atraumatic, normocephalic. PERRLA. Oral mucosa is moist. Neck: Supple. No JVD. No carotid bruits. Chest: Clear to auscultation. Good air entry. Heart: Regular rate and rhythm. S1, S2 normal. No gallop or murmur. Abdomen: Soft, nontender. No masses. No hepatosplenomegaly. Positive bowel sounds. Extremities: No clubbing, no cyanosis, no edema. No calf tenderness. Neurologic: Grossly intact. Cranial nerve exam 2 through 12 intact. Normal sensation. Normal refl exes. Normal muscle strength. Discharged Medications: 1.Aspirin 81 mg once a day. 2.Diltiazem 120 mg once a day. 3.[QAMARKER] mg twice a day to finish his antibiotic course. 4.Trelegy inhaler daily. 5.Vicodin 1 tablet 3 times a day. 6.Atrovent nebulizer t.i.d. 7. nebulizer t.i.d. 8.Remeron 15 mg once a day. 9.Protonix 40 mg once a day. 10. mg daily. 11.Prednisone 10 mg, initially 20 mg for 3 days then 10 mg daily. PARVEZ/SENA Voice ID: [id number] Report ID: [id number]
== END 2019-09-11 13:10 | disposition home or self-care (01) ==
LOC: ER 20:55 → ERHOLD 09-11 00:41 → 4TH 09-11 00:48
PROVIDERS: ADMIT Internal Medicine; ATTEND Internal Medicine
DX: I10 Essential (primary) hypertension (principal); J44.9 Chronic obstructive pulmonary disease, unspecified
CPT/HCPCS: 93005; 85025; 80048; 36415; 83735 ×2; 84100; 84132; 85610; 80076; 84443; 81003; 84484 ×4; 83880; 71045; 94640; 94760; 96375; 96374; 99285; J0360 ×2; J2930; G0378 ×2; J1650